=== PATIENT | female | born 1935 | race Caucasian/White ===

== ENCOUNTER 2016-12-26 10:04 | Day surgery (SDC) | payer MEDICARE ==
[2016-12-20 10:44] VITALS: BMI 29.7
[~2016-12-26 10:04] MED LIST: LACTATED RINGERS 1,000 ML IV SCH
[2016-12-26] MEDS ORDERED: LIDOCAINE 1% 20 ML VIAL (10MG/ML) FOR IV START INTRADERMA ONE (10:50)
[2016-12-26] MEDS: CYCLOPENTOLATE 1% OPHTH SOLN 2 ML BTL OP ONE ×3 (10:55→11:14)
[2016-12-26 10:59] VITALS: RESP 16; TEMP 97.5
[2016-12-26] MEDS: FLURBIPROFEN 0.03% OPHTH DROPS 2.5 ML BTL OP ONE ×3 (10:59→11:17)
[2016-12-26] MEDS: PHENYLEPHRINE 10% OPHTH DROPS 5 ML BTL OP ONE ×3 (11:01→11:20)
[2016-12-26] MEDS ORDERED: PROPOFOL 10 MG/ML 20 ML VIAL IV ONE (11:26)
[2016-12-26] MEDS ORDERED: EPINEPHrine (PF) 0.5 ML in BALANCED SALT IRRIG SOLN COMB2 500 ML IRRIGATION ONE (11:30)
[2016-12-26] MEDS ORDERED: BALANCED SALT IRRIG SOLN COMB2 15 ML IRRIG.SOLN IRRIGATION ONE (11:37)
[2016-12-26] MEDS ORDERED: HYALURONATE SODIUM INTRAOCULAR 1 EACH SYRINGE (10MG/ML) INTRAOCULA ONE (11:37)
--- NOTE | 2016-12-26 11:51 | P.OP ---
Date of Procedure: 12/26/16 Preoperative Diagnosis: Postoperative Diagnosis: Procedure(s) Performed: PREOPERATIVE DIAGNOSIS: Cataract, left eye. POSTOPERATIVE DIAGNOSIS: Cataract, left eye. OPERATION: Phacoemulsification cataract, left eye. DESCRIPTION OF PROCEDURE: The patient was taken to the preoperative holding area. Intravenous Propofol was given so as to bring about adequate sedation. The following mixture was given for local anesthesia: 5 mL of 2% lidocaine, 5 mL of 0.75% Marcaine, and 1 mL of Wydase. Approximately 4 mL was injected in the retrobulbar space of the surgical eye. Additional 1 mL was then directed to the temporal area of the surgical eye. This was performed to allow adequate neurological block of the facial muscles. The patient was revived and then taken into the operative room. The patient was prepped and draped in the usual sterile manner for the operative eye. A lid speculum was put into position. The conjunctiva was resected back from the limbus in the 12 o'clock position. Bleeding was controlled with electrocautery. A #69 blade was then used and a half-thickness scleral incision approximately 1-mm posterior to the limbus was made on bare sclera. This was shelved in the clear cornea using a crescent knife. Next a 15-degree blade was used to make a stab incision at the 3 o' clock position at the corneolimbal interface. Keratome blade was then used and the superior wound was extended into the anterior chamber. Viscoelastic was injected into the anterior chamber and to maintain its form. Next, a cystotome was used and a continuous anterior capsulotomy was made without difficulty. Hydrodissection using a blunt cannula and BSS was performed. Phaco probe was then employed and a groove extending from 12 to 6 o'clock in the lens was created. A Pablito wand was used through the stab incision so as to perform a divide and conquer technique. Next an irrigation aspiration probe was utilized and any residual cortex was removed from the eye. Again, viscoelastic was injected into the anterior chamber. An Efrain posterior chamber lens implant was placed in the cartridge and injected into the anterior chamber without difficulty. The Telovationsey hook was utilized to spin the lens into position and this was again performed without any difficulty. The irrigation and aspiration probe was again employed and any residual viscoelastic was removed from the eye. Then BSS was injected into the limbal stab incision and the anterior chamber re-inflated. The conjunctiva was reapproximated using electrocautery. One drop of 0.25% Timoptic was placed over the corneal along with TobraDex ophthalmic ointment. Two sterile patches and a Quiros eye shield were taped into position. The patient was transported to the recovery room in stable condition. Implants: Pathology: none sent Condition: stable Disposition: same day Indications for Procedure: Operative Findings: Description of Procedure:
[2016-12-26 12:11] VITALS: BP 156/83; PULSE 58
[2016-12-26] MEDS ORDERED: TIMOLOL 0.5% OPHTH SOLN (PF) 0.2 ML DROPERETTE OP ONE (23:00)
[2016-12-26] MEDS ORDERED: BUPIVACAINE (PF) 0.75% 5 ML, LIDOCAINE 4% (PF) 5 ML, HYALURONIDASE, HUMAN RECOMB 150 UNIT MISCELLANE ONE ×3 (23:00)
[2016-12-26] MEDS ORDERED: GENTAMICIN/PREDNISOL AC OPHTH OINT 3.5GM OPHTHALMIC ONE (23:00)
== END 2016-12-26 12:31 | disposition home or self-care (01) ==
LOC: OR 10:04
PROVIDERS: ATTEND Ophthalmology
DX: H26.9 Unspecified cataract (principal); H35.30 Unspecified macular degeneration; H04.129 Dry eye syndrome of unspecified lacrimal gland; I10 Essential (primary) hypertension; E07.9 Disorder of thyroid, unspecified; Z79.82 Long term (current) use of aspirin; Z79.899 Other long term (current) drug therapy; Z88.8 Allergy status to other drugs, medicaments and biological substances
CPT/HCPCS: 66984; V2632; J2001; J3470; J0171; J2704

== ENCOUNTER → 2017-05-03 | Outpatient (CLI) | payer MEDICARE ==
--- NOTE | 2017-05-03 15:50 | BD ---
EXAMINATION TYPE: MG DEXA axial skeleton. DATE OF EXAM: 05/03/2017 COMPARISON: NONE CLINICAL HISTORY: PT IS A 82 YR OLD FEMALE...[id number] CODE: Z78.0 ASYMPOMATIC MENOPAUSAL STATE Height: 65 Weight: 187 FRAX RISK QUESTIONS: Alcohol (3 or more units per day): NO Family History (Parent hip fracture): NO BROKEN HIP Glucocorticoids (More than 3mos): NO (Ex: prednisone, prednisolone, methylprednisolone, dexamethasone, and hydrocortisone). History of Fracture in Adulthood: YES Secondary Osteoporosis: NO 1. Type 1 Diabetes: NO 2. Hyperthyroidism: NO 3. Menopause before 45: NO 4. Malnutrition: NO 5. Chronic liver disease: NO Rheumatoid Arthritis: NO Current Tobacco Use: NO RISK FACTORS HISTORY OF: Hip Fracture (LEFT): YES When: ADULT RT FOR FRACTURE.... AN ADULT Surgery to LT HIP...THR): YES When: 14 YRS AGO Family History of Osteoporosis: YES, HER MOTHER, SISTER, BROKEN SHOULDER BUT NOT HIP Active: BEST SHE CAN Diet low in dairy products/other sources of calcium: NO Postmenopausal woman: HYST AT AGE 52 YRS OLD TOOK HORMONES ONLY SHORT WHILE AFTER SURG Hyperparathyroidism: YES Adrenal Insufficiency: NO MEDICATIONS: Thyroid Medications: NONE NOW, ONLY IN PAST Additional Medications: HEART MEDS, BP MEDS, ANTIANXIETY, REFLUX, VIT D Additional History: HEART TROUBLE, HYPERTENSION AND ANXIETY EXAM MEASUREMENTS: Bone mineral densitometry was performed using the [employer] System. Bone mineral density as measured about the Lumbar spine is: ----- L1-L4(G/cm2): 1.271 T Score Values are as follows: ----- L1: 1.1 ----- L2: 0.7 ----- L3: 0.4 ----- L4: 0.7 ----- L1-L4: 0.8 Bone mineral density THIS IS HER FIRST BONE DENSITY TEST WITH KAYLANEBONY BRYAN Bone mineral density about the R hip (g/cm2): 0.771 T Score values are as follows: -----R Neck: -0.9 -----R Total: -1.9 Bone mineral density FIRST BONE DENSITY AT [facility] FRAX%'S: THERE IS A 15.7% CHANCE OF A MAJOR OSTEOPOROTIC FX AND 2.9% OF HIP FX.....PROBABILITY OF FX IN 10 YRS TIME IMPRESSION: Osteopenia (T Score between -2.5 and -1) as noted by T score values with regards to the right hip. There is slightly increased risk of fracture and the patient may be considered for treatment. Re-Screen 2-5 years. NOTE: T-SCORE=SD OF THE YOUNG ADULT MEAN.
== END | disposition home or self-care (01) ==
LOC: RADBDWWP 13:02
PROVIDERS: ATTEND Family Medicine
DX: M85.851 Other specified disorders of bone density and structure, right thigh (principal); Z78.0 Asymptomatic menopausal state
CPT/HCPCS: 77080

== ENCOUNTER 2017-09-21 16:36 | Observation (INO) | payer MEDICARE ==
[2017-09-21] MEDS ORDERED: ACETAMINOPHEN TAB 500 MG TAB PO STA (16:58)
[2017-09-21] MEDS ORDERED: diphenhydrAMINE 50 MG/ML 1 ML VIAL IVP STA (16:58)
[2017-09-21] MEDS ORDERED: FAMOTIDINE 20 MG/2 ML VIAL IV STA (16:58)
[2017-09-21] MEDS ORDERED: METOCLOPRAMIDE 5 MG/ML 2 ML VIAL IVP STA (16:58)
[2017-09-21] MEDS ORDERED: SODIUM CHLORIDE 0.9% 1,000 ML IV ONE (16:58)
[2017-09-21 17:28] LABS: Basophils % (A) 0 %; Eosinophils # (A) 0.1 k/uL (0-0.7); Eosinophils % (A) 2 %; HCT 35.9 % (34.0-46.0); HGB 12.1 gm/dL (11.4-16.0); Lymphocytes # (A) 0.2 k/uL (1.0-4.8); Lymphocytes % (A) 4 %; MCH 31.1 pg (25.0-35.0); MCHC 33.6 g/dL (31.0-37.0); MCV 92.4 fL (80.0-100.0); Mean Platelet Volume 8.1; Monocytes # (A) 0.3 k/uL (0-1.0); Monocytes % (A) 4 %; Neutrophils # (A) 5.4 k/uL (1.3-7.7); Neutrophils % (A) 90 %; Platelet Count 213 k/uL (150-450); RBC 3.89 m/uL (3.80-5.40); RDW 12.9 % (11.5-15.5); WBC 6.1 k/uL (3.8-10.6)
[2017-09-21 17:40] LABS: Albumin 3.8 g/dL (3.5-5.0); Calcium 9.2 mg/dL (8.4-10.2); Potassium 4.4 mmol/L (3.5-5.1); Total Bilirubin 0.6 mg/dL (0.2-1.3); Total Protein 6.7 g/dL (6.3-8.2)
--- NOTE | 2017-09-21 18:12 | XR ---
EXAMINATION: XR chest 2V DATE AND TIME: 09/21/2017 5:54 PM ORDERING PROVIDER: Angel Gtz CLINICAL INDICATION: Cough TECHNIQUE: AP and lateral COMPARISON: None. DESCRIPTION: The lungs are clear. The pleural spaces are negative. The cardiac silhouette is not enlarged. The mediastinal and pleural silhouettes are unremarkable. The skeletal structures are intact without focal findings. The soft tissues are unremarkable. IMPRESSION: NO ACUTE PROCESS.
--- NOTE | 2017-09-21 18:16 | ED ---
Nausea/Vomiting/Diarrhea HPI - General Chief complaint: Nausea/Vomiting/Diarrhea Stated complaint: poss flu Time Seen by Provider: 09/21/17 16:41 Source: patient, EMS, RN notes reviewed Mode of arrival: EMS Limitations: no limitations - History of Present Illness Initial comments: 82-year-old female presents from a chief complaint of generalized not feeling well. Patient states that she has a few feel family members have been diagnosed with influenza. She states that she had a few episodes of diarrhea today slight nausea and acid reflux which is normal for her. She also complains of a headache but she states that she's had headaches consistently since she hit her head and several months ago. Patient denies any focal weakness denies any blurred vision or any confusion. Patient states that she just was not feeling any better throughout the day so she thought she should come and be checked out. She denies any dysuria or hematuria. Patient had no reported fever denies any chills or night sweats. - Related Data Home Medications Medication Instructions Recorded Confirmed Aspirin [Adult Low Dose Aspirin EC] 162 mg PO DAILY 12/20/16 09/21/17 Cholecalciferol (Vitamin D3) 2,000 unit PO DAILY 12/20/16 09/21/17 [Vitamin D3] Citalopram Hydrobromide [CeleXA] 40 mg PO DAILY 12/20/16 09/21/17 Cyanocobalamin (Vitamin B-12) 1,000 mcg PO DAILY 12/20/16 09/21/17 [Vitamin B-12] Fish Oil/Dha/Epa [Fish Oil 1,200 1 cap PO DAILY 12/20/16 09/21/17 mg Fish Oil] Iron 32.1 Mg 1 tab PO SUTUTHSA 12/20/16 09/21/17 Losartan Potassium 100 mg PO DAILY 12/20/16 09/21/17 Multivitamins, Thera [Multivitamin 3 tab PO HS 12/20/16 09/21/17 (formulary)] Vitamin E (Unknown Dose) 1 tab PO DAILY 12/20/16 09/21/17 amLODIPine BESYLATE [Norvasc] 5 mg PO HS 12/20/16 09/21/17 Cranberry Fruit Extract [Cranberry] 500 mg PO DAILY 09/21/17 09/21/17 Lutein/Zeaxanthin 25/25mg 1 tab PO DAILY 09/21/17 09/21/17 Methimazole [Tapazole] 5 mg PO DAILY 09/21/17 09/21/17 Allergies Allergy/AdvReac Type Severity Reaction Status Date / Time shellfish derived [Shellfish] Allergy Severe Nausea & Verified 09/21/17 18:04 Vomiting, Very Ill. rofecoxib [From Vioxx] Allergy Unknown Hypertensio Verified 09/21/17 18:04 n sertraline [From Zoloft] Allergy Unknown Rash/Hives Verified 09/21/17 18:04 celecoxib [From Celebrex] AdvReac Unknown Loss of Verified 09/21/17 18:04 Balance Review of Systems ROS Statement: Those systems with pertinent positive or pertinent negative responses have been documented in the HPI. ROS Other: All systems not noted in ROS Statement are negative. Past Medical History Past Medical History: Hypertension, Osteoarthritis (OA), Thyroid Disorder Additional Past Medical History / Comment(s): States irregular heart beat, Varicose Veins, Hx of 3 doses of radioactive iodine for Thyroid tx., HX of a fall December 04. History of Any Multi-Drug Resistant Organisms: None Reported Past Surgical History: Cholecystectomy, Hysterectomy, Joint Replacement, Orthopedic Surgery, Tonsillectomy Additional Past Surgical History / Comment(s): PARTIAL LEFT HIP AND THEN TOTAL LEFT HIP., RIGHT CATARACT ([facility] cataract BL Past Anesthesia/Blood Transfusion Reactions: No Reported Reaction Past Psychological History: Anxiety Smoking Status: Never smoker Past Alcohol Use History: None Reported Past Drug Use History: None Reported - Past Family History Sister(s) Family Medical History: Cancer General Exam Limitations: no limitations General appearance: alert, in no apparent distress Head exam: Present: atraumatic, normocephalic, normal inspection Eye exam: Present: normal appearance, PERRL, EOMI. Absent: scleral icterus, conjunctival injection, periorbital swelling ENT exam: Present: normal exam, normal oropharynx, mucous membranes moist, TM's normal bilaterally, normal external ear exam Neck exam: Present: normal inspection, full ROM. Absent: tenderness, meningismus, lymphadenopathy Respiratory exam: Present: normal lung sounds bilaterally. Absent: respiratory distress, wheezes, rales, rhonchi, stridor Cardiovascular Exam: Present: regular rate, normal rhythm, normal heart sounds. Absent: systolic murmur, diastolic murmur, rubs, gallop, clicks GI/Abdominal exam: Present: soft, normal bowel sounds. Absent: distended, tenderness, guarding, rebound, rigid Extremities exam: Present: normal inspection, full ROM, normal capillary refill. Absent: tenderness, pedal edema, joint swelling, calf tenderness Neurological exam: Present: alert, oriented X3, CN II-XII intact, reflexes normal. Absent: motor sensory deficit Skin exam: Present: warm, dry, intact, normal color. Absent: rash Course Vital Signs 09/21/17 09/21/17 09/21/17 16:45 18:17 19:09 Temperature 97.0 F L 97.9 F Pulse Rate 81 62 Respiratory 17 17 Rate Blood Pressure 167/78 163/69 O2 Sat by Pulse 100 100 Oximetry Medical Decision Making - Lab Data Result diagrams: 09/21/17 17:20 09/21/17 17:20 Lab Results 09/21/17 09/21/17 09/21/17 Range/Units 16:38 17:20 17:20 WBC 6.1 (3.8-10.6) k/uL RBC 3.89 (3.80-5.40) m/uL Hgb 12.1 (11.4-16.0) gm/dL Hct 35.9 (34.0-46.0) % MCV 92.4 (80.0-100.0) fL MCH 31.1 (25.0-35.0) pg MCHC 33.6 (31.0-37.0) g/dL RDW 12.9 (11.5-15.5) % Plt Count 213 (150-450) k/uL Neutrophils % 90 % Lymphocytes % 4 % Monocytes % 4 % Eosinophils % 2 % Basophils % 0 % Neutrophils # 5.4 (1.3-7.7) k/uL Lymphocytes # 0.2 L (1.0-4.8) k/uL Monocytes # 0.3 (0-1.0) k/uL Eosinophils # 0.1 (0-0.7) k/uL Basophils # 0.0 (0-0.2) k/uL Sodium 139 (137-145) mmol/L Potassium 4.4 (3.5-5.1) mmol/L Chloride 102 (98-107) mmol/L Carbon Dioxide 27 (22-30) mmol/L Anion Gap 10 mmol/L BUN 24 H (7-17) mg/dL Creatinine 0.90 (0.52-1.04) mg/dL Est GFR (CKD-EPI)AfAm 69 (>60 ml/min/1.73 sqM) Est GFR (CKD-EPI)NonAf 60 (>60 ml/min/1.73 sqM) Glucose 140 H (74-99) mg/dL Calcium 9.2 (8.4-10.2) mg/dL Magnesium 2.0 (1.6-2.3) mg/dL Total Bilirubin 0.6 (0.2-1.3) mg/dL AST 29 (14-36) U/L ALT 25 (9-52) U/L Alkaline Phosphatase 68 (38-126) U/L Troponin I (0.000-0.034) ng/mL Total Protein 6.7 (6.3-8.2) g/dL Albumin 3.8 (3.5-5.0) g/dL Lipase 391 H (23-300) U/L Urine Color Urine Appearance (Clear) Urine pH (5.0-8.0) Ur Specific [place] (1.001-1.035) Urine Protein (Negative) Urine Glucose (UA) (Negative) Urine Ketones (Negative) Urine Blood (Negative) Urine Nitrite (Negative) Urine Bilirubin (Negative) Urine Urobilinogen (<2.0) mg/dL Ur Leukocyte Esterase (Negative) Urine RBC (0-5) /hpf Urine WBC (0-5) /hpf Urine WBC Clumps (None) /hpf Urine Bacteria (None) /hpf Hyaline Casts (0-2) /lpf Urine Mucus (None) /hpf Influenza Type A RNA Not Detected (Not Detectd) Influenza Type B (PCR) Not Detected (Not Detectd) 09/21/17 09/21/17 Range/Units 17:20 17:35 WBC (3.8-10.6) k/uL RBC (3.80-5.40) m/uL Hgb (11.4-16.0) gm/dL Hct (34.0-46.0) % MCV (80.0-100.0) fL MCH (25.0-35.0) pg MCHC (31.0-37.0) g/dL RDW (11.5-15.5) % Plt Count (150-450) k/uL Neutrophils % % Lymphocytes % % Monocytes % % Eosinophils % % Basophils % % Neutrophils # (1.3-7.7) k/uL Lymphocytes # (1.0-4.8) k/uL Monocytes # (0-1.0) k/uL Eosinophils # (0-0.7) k/uL Basophils # (0-0.2) k/uL Sodium (137-145) mmol/L Potassium (3.5-5.1) mmol/L Chloride (98-107) mmol/L Carbon Dioxide (22-30) mmol/L Anion Gap mmol/L BUN (7-17) mg/dL Creatinine (0.52-1.04) mg/dL Est GFR (CKD-EPI)AfAm (>60 ml/min/1.73 sqM) Est GFR (CKD-EPI)NonAf (>60 ml/min/1.73 sqM) Glucose (74-99) mg/dL Calcium (8.4-10.2) mg/dL Magnesium (1.6-2.3) mg/dL Total Bilirubin (0.2-1.3) mg/dL AST (14-36) U/L ALT (9-52) U/L Alkaline Phosphatase (38-126) U/L Troponin I 0.023 (0.000-0.034) ng/mL Total Protein (6.3-8.2) g/dL Albumin (3.5-5.0) g/dL Lipase (23-300) U/L Urine Color Yellow Urine Appearance Turbid H (Clear) Urine pH 6.5 (5.0-8.0) Ur Specific [place] 1.016 (1.001-1.035) Urine Protein 1+ H (Negative) Urine Glucose (UA) Negative (Negative) Urine Ketones Negative (Negative) Urine Blood Small H (Negative) Urine Nitrite Positive H (Negative) Urine Bilirubin Negative (Negative) Urine Urobilinogen <2.0 (<2.0) mg/dL Ur Leukocyte Esterase Large H (Negative) Urine RBC 55 H (0-5) /hpf Urine WBC >182 H (0-5) /hpf Urine WBC Clumps Many H (None) /hpf Urine Bacteria Many H (None) /hpf Hyaline Casts 35 H (0-2) /lpf Urine Mucus Few H (None) /hpf Influenza Type A RNA (Not Detectd) Influenza Type B (PCR) (Not Detectd) - EKG Data EKG Comments: EKG performed at 17:27 there is normal sinus rhythm with left axis deviation, rate of 69 [place] 186 QRS 120 QT/QTC 444/75 Disposition Clinical Impression: UTI (urinary tract infection), Nausea, Weakness, Flank pain, Headache Disposition: ADMITTED IP TO THIS HOSP Condition: Stable Referrals: Cuate Casarez MD [Primary Care Provider] - 1-2 days
--- NOTE | 2017-09-21 18:22 | CT ---
EXAMINATION: CT brain wo con DATE AND TIME: 09/21/2017 5:52 PM ORDERING PROVIDER: Angel Gtz CLINICAL INDICATION: Headache with weakness TECHNIQUE: Standard departmental protocol. COMPARISON: 01/06/2012 DESCRIPTION: The calvarium is intact. There is no intracranial hemorrhage. There is no mass or mass e ffect. There is no definite new attenuation defect. Remainder of the intra-axial and extra-axial comp artment examination is unremarkable. The paranasal sinuses, middle ear cavities, and mastoid sinus ai r cells are clear. The orbits are intact. IMPRESSION: NO ACUTE PROCESS.
[2017-09-21 19:12] LABS: Appearance,Urine Turbid (Clear); Bacteria,Urine Many /hpf; Bilirubin,Urine Negative (Negative); Blood,Urine Small (Negative); Color,Urine Yellow; Glucose,Urine (UA) Negative (Negative); Hyaline Casts,Urine 35 /lpf (0-2); Ketones,Urine Negative (Negative); Leukocyte Esterase,Urine Large (Negative); Mucus,Urine Few /hpf; Nitrite,Urine Positive (Negative); PH, Urine 6.5 (5.0-8.0); Protein,Urine 1+ (Negative); RBC,Urine 55 /hpf (0-5); Specific Gravity,Urine 1.016 (1.001-1.035); Urobilinogen,Urine <2.0 mg/dL (<2.0); WBC,Urine >182 /hpf (0-5)
[2017-09-21] MEDS ORDERED: cefTRIAXone IN SWFI 1,000 MG/10 ML SYRINGE IVP STA (19:33)
[2017-09-21] MEDS ORDERED: ACETAMINOPHEN TAB 325 MG TAB PO PRN (19:36)
[2017-09-21] MEDS ORDERED: ONDANSETRON 4 MG/2 ML VIAL IVP PRN (19:36)
[2017-09-21] MEDS ORDERED: HYDROcodone/APAP 5-325MG 1 EACH TAB PO PRN (19:36)
[2017-09-21] MEDS: SODIUM CHLORIDE 0.9% 1,000 ML IV SCH (20:14)
[2017-09-21] MEDS ORDERED: ONDANSETRON 4 MG/2 ML VIAL IVP STA (21:51)
[2017-09-21] MEDS ORDERED: CALCIUM CARBONATE 500 MG CHEWABLE PO STA (21:53)
[2017-09-21 22:40] VITALS: RESP 16
[2017-09-22] MEDS: SODIUM CHLORIDE 0.9% 1,000 ML IV SCH (08:12)
[2017-09-22 08:52] VITALS: TEMP 98.5
[2017-09-22] MEDS ORDERED: ASPIRIN 81 MG PO SCH (11:00)
[2017-09-22] MEDS ORDERED: METHIMAZOLE 5 MG TAB PO SCH (11:00)
[2017-09-22] MEDS ORDERED: CITALOPRAM HYDROBROMIDE 20 MG TAB PO SCH (11:00)
[2017-09-22] MEDS ORDERED: LOSARTAN 50 MG TAB PO SCH (11:00)
[2017-09-22] MEDS ORDERED: CYANOCOBALAMIN 500 MCG TAB PO SCH (12:00)
[2017-09-22 12:54] VITALS: BMI 29.8
[2017-09-22 14:16] VITALS: BP 122/61; PULSE 69
[2017-09-22] MEDS ORDERED: cefTRIAXone IN SWFI 1,000 MG/10 ML SYRINGE IVP STA (16:38)
[2017-09-22] MEDS ORDERED: PANTOPRAZOLE 40 MG TABLET PO STA (16:53)
--- NOTE | 2017-09-22 18:09 | HP ---
HISTORY AND PHYSICAL HISTORY AND PHYSICAL AND DISCHARGE SUMMARY: DATE OF ADMISSION: 09/21/2017 PRESENT COMPLAINT: Weak, tired, run down. HISTORY OF PRESENTING COMPLAINT: A pleasant 82-year-old patient of Dr. Casarez. Chronic stable medical conditions include GERD, hypertension, osteoarthritis, hypothyroid, varicose veins. The patient presented with a multitude of symptoms, including a lot of belching, severe heartburn. Patient has had heartburn for quite a while, getting worse, especially after eating acidic stuff like soups, etc. Has not really been taking much medications except for [id number] stuff and reflux symptoms. Tired, run down, also having some urinary frequency and urgency, found to have a pretty significant UTI in the ER, was given IV ceftriaxone for the same. Patient is quite bothered by her reflux symptoms coming over a period of time. Also has had epigastric discomfort. REVIEW OF SYSTEMS: CONSTITUTIONAL: Tired. HEENT: None. RESPIRATORY: None. CARDIOVASCULAR: None. GASTROINTESTINAL: As above. GENITOURINARY: As above. MUSCULOSKELETAL: Arthritic pain in joints. DERMATOLOGICAL: None. HEMATOLOGIC: None. LYMPHATIC: None. PSYCHIATRY: None. NEUROLOGICAL: None. PAST HISTORY: GERD, hypertension, osteoarthritis, hypothyroid, varicose veins, pancreatitis, gout, hiatal hernia, uterine cancer more than 25 years ago. PAST SURGICAL HISTORY: Cholecystectomy, hysterectomy, joint replacement, tonsillectomy, partial left hip and then total left hip, right cataract surgery. SOCIAL HISTORY: The patient is , does not smoke or drink alcohol. FAMILY HISTORY: Graves' disease, cancer. HOME MEDICATIONS: 1. Norvasc 5 mg q.h.s. 2. Vitamin E 1 tablet p.o. daily. 3. Multivitamin 3 tablets p.o. q.h.s. 4. Tapazole 5 mg p.o. daily. 5. Losartan. 6. Potassium 100 mg p.o. daily. 7. Lutein/zeaxanthin 25/25 1 tablet p.o. daily. 8. Iron 1 tablet p.o. Sunday, Sunday, , Sunday. 9. Fish oil. 10.Vitamin B12 1000 mcg a day. 11.Cranberry 500 mg p.o. daily. 12.Celexa 40 mg p.o. daily. 13.Vitamin D3 2000 units p.o. daily. 14.Aspirin 162 mg p.o. daily. ALLERGIES: SHELLFISH, VIOXX, ZOLOFT, CELEBREX. EXAMINATION: VITAL SIGNS: On presentation, temperature 97, pulse 81, respirations 17, blood pressure 167/78, pulse ox 100% on room air. GENERAL APPEARANCE: Sitting up, comfortable. EYES: Pupils equal. Conjunctivae normal. HEENT: External nose and ears normal. Oral cavity normal. NECK: JVD not raised. Mass not palpable. RESPIRATORY: Effort normal. Lungs are clear. CARDIOVASCULAR: First and second sounds normal. No edema. ABDOMEN: Soft, nontender. Liver, spleen not palpable. LYMPHATIC: No lymph node palpable in neck or axillae. PSYCHIATRY: Alert and oriented x3. Mood and affect normal. NEUROLOGICAL: Pupils equal. Cranial nerve grossly intact. Power and sensation grossly intact. MUSCULOSKELETAL: Evidence of osteoarthritis, especially in the hands and knees. INVESTIGATIONS: White count 6.1, hemoglobin 12.1. Potassium 4.4, BUN 24, creatinine 0.90. UA positive for leuko esterase, WBC, bacteria. ASSESSMENT: 1. Acute urinary tract infection causing systemic symptoms. Patient is given IV antibiotic in the ER. 2. Severe gastroesophageal reflux disease symptoms, progressively getting worse. Probably will need an esophagogastroduodenoscopy due to epigastric discomfort. 3. Essential hypertension. 4. Primary osteoarthritis in multiple joints. 5. Hyperthyroidism. 6. Primary osteoarthritis in multiple joints. 7. Depression, not otherwise specified. PLAN: Care was discussed with the patient. Questions were answered. She is feeling much better. Did tell her that she needs to be on PPIs and she needs an outpatient EGD. The patient will get another dose of IV ceftriaxone and then she can go home today. Otherwise, she is feeling much better. Home medications will be continued. Additionally, the patient will get Ceftin 250 mg p.o. twice a day for 3 more days. The patient did get IV fluids. Follow up with Dr. Demetrius Alvarez in 1 week. Follow up with Dr. Casarez in 3 days. MMODL / IJN: [id number] /
[2017-09-22] MEDS ORDERED: amLODIPine 5 MG TAB PO SCH (21:00)
== END 2017-09-22 18:28 | disposition home or self-care (01) ==
LOC: EC 16:36 → 5MS5E 20:19
PROVIDERS: ADMIT Hospitalist; ATTEND Hospitalist
DX: N39.0 Urinary tract infection, site not specified (principal); K21.9 Gastro-esophageal reflux disease without esophagitis; I10 Essential (primary) hypertension; E05.90 Thyrotoxicosis, unspecified without thyrotoxic crisis or storm; R51 Headache; M10.9 Gout, unspecified; I83.90 Asymptomatic varicose veins of unspecified lower extremity; M19.042 Primary osteoarthritis, left hand; M19.041 Primary osteoarthritis, right hand; M17.0 Bilateral primary osteoarthritis of knee; F32.9 Major depressive disorder, single episode, unspecified; Z79.82 Long term (current) use of aspirin; Z79.899 Other long term (current) drug therapy; Z96.643 Presence of artificial hip joint, bilateral; Z90.710 Acquired absence of both cervix and uterus; Z87.19 Personal history of other diseases of the digestive system; Z83.49 Family history of other endocrine, nutritional and metabolic diseases; Z80.9 Family history of malignant neoplasm, unspecified; Z88.8 Allergy status to other drugs, medicaments and biological substances; Z88.6 Allergy status to analgesic agent; Z91.013 Allergy to seafood
CPT/HCPCS: 96375 ×5; 96361 ×4; 96374 ×2; 99285 ×2; 96376; 36415; 93005; 80053; 83690; 83735; 84484; 85025; 81001; 87502; 71046; 70450; G0378 ×2; J1200; J2765; J2405; J0696 ×2

== ENCOUNTER → 2018-12-10 | Outpatient (CLI) | payer MEDICARE ==
--- NOTE | 2018-12-10 20:56 | CONS ---
CONSULTATION REASON FOR THE CONSULT: Insomnia and nightmares. Emerald is 83 and she was in a good state of health until around 4-5 months ago when she started having sleep fragmentation, difficulty initiating and maintaining sleep and excessive number of nightmares occurring mainly in the second half of the night. She is going to bed around 11 p.m., and she gets out of bed at 9:00 am in the morning. Total number of hours of sleep varies and this has been gradually getting worse over the past 4-5 months. During the day, she feels tired and sleepy. No snoring. No witnessed apneas. No waking up choking or gasping for air. She has symptoms of increased restlessness in the lower extremities and she improves by massaging and applying heat pads and stretching her legs. Note that around 4-5 months ago and along with the onset of her symptoms, the patient was started on Aricept for short-term memory loss. The patient was also diagnosed having atrial fibrillation. She was started on a combination of metoprolol and Eliquis. Her atrial fibrillation is under good control for now. Never the less, she developed insomnia and she is having increased nightmares. No substance abuse. No alcoholism. No head trauma. No falls. No GI bleeding. No reported depression. She has anxiety. Yet she is not taking any treatment for now. Scotia score is only at 6. PAST MEDICAL HISTORY: Atrial fibrillation. Hypertension, chronic anxiety/depression. Sciatica, RLS. PAST SURGICAL HISTORY: Includes replacement, hysterectomy. DRUG ALLERGIES: TO IODINE AND MACRODANTIN. OUTPATIENT MEDICATIONS: Include Aricept, Eliquis, metoprolol and Cozaar. SOCIAL HISTORY: Nonsmoker. No history of alcohol. No history of IV drugs. FAMILY HISTORY: Negative for sleep apnea or for any other form of sleep disorder. REVIEW OF SYSTEMS: Fourteen-point review of system was done. Positive findings are mentioned above in history of present illness. Of significance is the hip pain for which the patient has undergone hip replacement for bilateral osteoarthritis. The patient is having nightmares with scary dreams which wake her up constantly from sleep. She has no episodes of sleep paralysis. No hallucinations. No cognitive impairment. She is still able to function well and she is able to write down her bills herself. She is only forgetful with short-term acquired memory. Long-term memory is quite intact at this point. No falls. No chest pain. No heartburn. No palpitations. PHYSICAL EXAMINATION: Her current vital signs, her blood pressure is 134/75. Pulse 61, respirations 16, temp 97.6. Saturation 95% on room air. Height is 5 feet, 5 inches, weight is 189 and Scotia score is at 6. Neck size is 15-1/4 of an inch. BMI 31.4. GENERAL APPEARANCE: Calm comfortable. Head is atraumatic, normocephalic. NECK: Supple. Short crowding of posterior pharynx not present. No goiter or neck masses. Mallampati class 2-3. LUNGS: Clear to auscultation. HEART: Sounds are irregular. Positive S1, S2. No S3, S4. No murmurs. ABDOMEN: Soft, nontender. No organomegaly. EXTREMITIES: No edema. No cyanosis or clubbing. Neurologic: Alert and oriented times three with no focal neurological deficits. PSYCH is negative for any active symptoms of depression. There may be a component of anxiety. SKIN: Negative for any wounds or ulcerations. IMPRESSION: 1. New onset insomnia along with nightmares. As such, the patient is having sleep fragmentation and excessive fatigue and tiredness and sleepiness during the day. 2. Hypertension. 3. Chronic atrial fibrillation. 4. History of anxiety/depression. 5. Sciatica. 6. Restless leg syndrome. PLAN: This patient has several factors affecting her sleep quality. I find a very well established temporal relationship between various drugs that were initiated on this patient and her sleep symptoms. For instance, the patient was started on Aricept and this agent is known to cause symptoms related to insomnia. At the same time, the patient was started on metoprolol known to cause nightmares. Furthermore, the patient has symptoms of restless legs syndrome. I educated this patient on maintaining good sleep hygiene measures. We will introduce some sleep restriction. We will ask her to get out of bed around 6 a.m. in the morning and spend only 7 hours in bed if possible. I suggested stopping the Aricept for now which will help with symptoms of insomnia. I also asked her to contact Dr. Adams Jansen, her lead programmer and ask him to have her metoprolol switch to calcium general ashok which has less side effects such as nightmares. She will continue doing stretching exercises and warm compresses and hot baths and massage therapy to her legs, to improve restless legs syndrome. I do not see the need for adding a dopaminergic agent at this point in time. She will do all this intervention and I anticipate improvement in her sleep quality. If not, she will contact [facility] for a regular followup. RON / STEW: [id number] /
== END ==
LOC: SLEEP 14:09
PROVIDERS: ATTEND Internal Medicine Critical Care Medicine
DX: G47.00 Insomnia, unspecified (principal); I10 Essential (primary) hypertension; I48.2 Chronic atrial fibrillation; F41.8 Other specified anxiety disorders; M54.30 Sciatica, unspecified side; G25.81 Restless legs syndrome; Z91.048 Other nonmedicinal substance allergy status; Z88.8 Allergy status to other drugs, medicaments and biological substances; Z79.01 Long term (current) use of anticoagulants; Z79.899 Other long term (current) drug therapy
CPT/HCPCS: 99211

== ENCOUNTER 2019-01-03 08:50 | Observation (INO) | payer MEDICARE ==
[2019-01-03] MEDS ORDERED: SODIUM CHLORIDE 0.9% 1,000 ML IV STA (09:09)
--- NOTE | 2019-01-03 09:13 | ED ---
General Adult HPI - General Chief complaint: Weakness Stated complaint: Weakness Time Seen by Provider: 01/03/19 08:55 Source: patient, EMS, RN notes reviewed Mode of arrival: EMS Limitations: no limitations - History of Present Illness Initial comments: Patient is a pleasant 83-year-old female presenting to the emergency Department with complaints of generalized weakness. Patient was seen in the emergency department several weeks ago with diarrhea however this has now resolved. Patient has been drinking okay. Patient was diagnosed with urinary tract infection several days following this. Patient completed antibiotics and followed up with her doctor. Patient did have concern still for urinary tract infection and a second antibiotic was prescribed just yesterday. Patient feels somewhat weak all over. No confusion. No fevers. No isolated area of weakness. No abdominal pain. - Related Data Home Medications Medication Instructions Recorded Confirmed Citalopram Hydrobromide [CeleXA] 40 mg PO DAILY 12/20/16 01/03/19 amLODIPine BESYLATE [Norvasc] 5 mg PO HS 12/20/16 01/03/19 Apixaban [Eliquis] 5 mg PO BID 01/03/19 01/03/19 Loratadine [Claritin] 10 mg PO DAILY 01/03/19 01/03/19 Losartan/Hydrochlorothiazide 1 tab PO DAILY 01/03/19 01/03/19 [Losartan-Hctz 100-12.5 mg Tab] Nitrofurantoin Monohyd/M-Cryst 100 mg PO Q12HR 01/03/19 01/03/19 [Macrobid] Vit C/E/Zn/Coppr/Lutein/Zeaxan 1 cap PO HS 01/03/19 01/03/19 [Preservision Areds 2 Softgel] Allergies Allergy/AdvReac Type Severity Reaction Status Date / Time rofecoxib [From Vioxx] Allergy Unknown Hypertensio Verified 01/03/19 09:08 n sertraline [From Zoloft] Allergy Unknown Rash/Hives Verified 01/03/19 09:08 shellfish derived [Shellfish] AdvReac Severe Nausea & Verified 01/03/19 09:08 Vomiting, Very Ill. celecoxib [From Celebrex] AdvReac Unknown Loss of Verified 01/03/19 09:08 Balance Review of Systems ROS Statement: Those systems with pertinent positive or pertinent negative responses have been documented in the HPI. ROS Other: All systems not noted in ROS Statement are negative. Constitutional: Denies: fever Eyes: Denies: eye pain ENT: Denies: ear pain Respiratory: Denies: cough Cardiovascular: Denies: chest pain Endocrine: Reports: fatigue Gastrointestinal: Denies: abdominal pain, nausea, vomiting Genitourinary: Denies: dysuria, hematuria Musculoskeletal: Denies: back pain Skin: Denies: rash Neurological: Denies: confusion Past Medical History Past Medical History: Atrial Fibrillation, Cancer, GERD/Reflux, Hypertension, Osteoarthritis (OA), Thyroid Disorder Additional Past Medical History / Comment(s): States irregular heart beat, Varicose Veins, Hx of 3 doses of radioactive iodine for Thyroid tx"for over active thyroid"., HX of a fall ,"headaches", pancreatitis, sinus infections, past gout, cataracts(sx done), hiatal hernia, uterine cancer >25 years ago(sx only), uti History of Any Multi-Drug Resistant Organisms: None Reported Past Surgical History: Cholecystectomy, Hysterectomy, Joint Replacement, Orthopedic Surgery, Tonsillectomy Additional Past Surgical History / Comment(s): PARTIAL LEFT HIP AND THEN TOTAL LEFT HIP., RIGHT CATARACT ([facility]). cataract BL Past Anesthesia/Blood Transfusion Reactions: No Reported Reaction Past Psychological History: Anxiety Smoking Status: Never smoker Past Alcohol Use History: None Reported Past Drug Use History: None Reported - Past Family History Sister(s) Family Medical History: Cancer Mother Additional Family Medical History / Comment(s): graves disease. comiited suicide in 1941 Father Family Medical History: Myocardial Infarction ([place]) General Exam Limitations: no limitations General appearance: alert, in no apparent distress Head exam: Present: atraumatic Eye exam: Present: normal appearance, PERRL ENT exam: Present: normal oropharynx Neck exam: Present: normal inspection Respiratory exam: Present: normal lung sounds bilaterally Cardiovascular Exam: Present: regular rate, irregular rhythm GI/Abdominal exam: Present: soft. Absent: tenderness Extremities exam: Present: normal inspection. Absent: pedal edema Neurological exam: Present: alert, oriented X3, CN II-XII intact. Absent: motor sensory deficit Expanded Neurological exam: Present: protecting the airway Speech: Present: fluid speech Motor strength exam: RUE: 5, LUE: 5, RLE: 5, LLE: 5 Psychiatric exam: Present: normal affect, normal mood Skin exam: Present: normal color Course Vital Signs 01/03/19 08:51 Temperature 98.3 F Pulse Rate 96 Respiratory 18 Rate Blood Pressure 145/83 O2 Sat by Pulse 99 Oximetry EKG Findings - EKG Comments: EKG Findings:: A. fib with a rate of 93. PVC is present. QRS 126. QT 404. QTC 502. Left axis. Septal Q waves. Nonspecific T-wave. Medical Decision Making - Medical Decision Making Patient was reevaluated and updated. Case was discussed in detail with Dr. Guy, covering for Dr. Casarez, who will admit. - Lab Data Result diagrams: 01/03/19 09:01 01/03/19 09:01 Lab Results 01/03/19 01/03/19 01/03/19 Range/Units 09:01 09:01 09:01 WBC 9.9 (3.8-10.6) k/uL RBC 3.68 L (3.80-5.40) m/uL Hgb 11.4 (11.4-16.0) gm/dL Hct 35.5 (34.0-46.0) % MCV 96.5 (80.0-100.0) fL MCH 31.1 (25.0-35.0) pg MCHC 32.2 (31.0-37.0) g/dL RDW 12.8 (11.5-15.5) % Plt Count 265 (150-450) k/uL Neutrophils % 94 % Lymphocytes % 3 % Monocytes % 1 % Eosinophils % 2 % Basophils % 0 % Neutrophils # 9.3 H (1.3-7.7) k/uL Lymphocytes # 0.3 L (1.0-4.8) k/uL Monocytes # 0.1 (0-1.0) k/uL Eosinophils # 0.2 (0-0.7) k/uL Basophils # 0.0 (0-0.2) k/uL PT (9.0-12.0) sec INR (<1.2) APTT (22.0-30.0) sec Sodium 136 L (137-145) mmol/L Potassium 4.2 (3.5-5.1) mmol/L Chloride 102 (98-107) mmol/L Carbon Dioxide 23 (22-30) mmol/L Anion Gap 11 mmol/L BUN 45 H (7-17) mg/dL Creatinine 1.43 H (0.52-1.04) mg/dL Est GFR (CKD-EPI)AfAm 39 (>60 ml/min/1.73 sqM) Est GFR (CKD-EPI)NonAf 34 (>60 ml/min/1.73 sqM) Glucose 125 H (74-99) mg/dL Plasma Lactic Acid Arley 1.6 (0.7-2.0) mmol/L Calcium 9.4 (8.4-10.2) mg/dL Magnesium 2.1 (1.6-2.3) mg/dL Total Bilirubin 0.9 (0.2-1.3) mg/dL AST 30 (14-36) U/L ALT 47 (9-52) U/L Alkaline Phosphatase 95 (38-126) U/L Troponin I (0.000-0.034) ng/mL Total Protein 6.8 (6.3-8.2) g/dL Albumin 4.0 (3.5-5.0) g/dL Urine Color Urine Appearance (Clear) Urine pH (5.0-8.0) Ur Specific Drain (1.001-1.035) Urine Protein (Negative) Urine Glucose (UA) (Negative) Urine Ketones (Negative) Urine Blood (Negative) Urine Nitrite (Negative) Urine Bilirubin (Negative) Urine Urobilinogen (<2.0) mg/dL Ur Leukocyte Esterase (Negative) Urine RBC (0-5) /hpf Urine WBC (0-5) /hpf Urine WBC Clumps (None) /hpf Urine Bacteria (None) /hpf 01/03/19 01/03/19 01/03/19 Range/Units 09:01 09:01 11:45 WBC (3.8-10.6) k/uL RBC (3.80-5.40) m/uL Hgb (11.4-16.0) gm/dL Hct (34.0-46.0) % MCV (80.0-100.0) fL MCH (25.0-35.0) pg MCHC (31.0-37.0) g/dL RDW (11.5-15.5) % Plt Count (150-450) k/uL Neutrophils % % Lymphocytes % % Monocytes % % Eosinophils % % Basophils % % Neutrophils # (1.3-7.7) k/uL Lymphocytes # (1.0-4.8) k/uL Monocytes # (0-1.0) k/uL Eosinophils # (0-0.7) k/uL Basophils # (0-0.2) k/uL PT 10.6 (9.0-12.0) sec INR 1.0 (<1.2) APTT 24.8 (22.0-30.0) sec Sodium (137-145) mmol/L Potassium (3.5-5.1) mmol/L Chloride (98-107) mmol/L Carbon Dioxide (22-30) mmol/L Anion Gap mmol/L BUN (7-17) mg/dL Creatinine (0.52-1.04) mg/dL Est GFR (CKD-EPI)AfAm (>60 ml/min/1.73 sqM) Est GFR (CKD-EPI)NonAf (>60 ml/min/1.73 sqM) Glucose (74-99) mg/dL Plasma Lactic Acid Arley (0.7-2.0) mmol/L Calcium (8.4-10.2) mg/dL Magnesium (1.6-2.3) mg/dL Total Bilirubin (0.2-1.3) mg/dL AST (14-36) U/L ALT (9-52) U/L Alkaline Phosphatase (38-126) U/L Troponin I 0.014 (0.000-0.034) ng/mL Total Protein (6.3-8.2) g/dL Albumin (3.5-5.0) g/dL Urine Color Yellow Urine Appearance Clear (Clear) Urine pH 6.5 (5.0-8.0) Ur Specific Drain 1.007 (1.001-1.035) Urine Protein 1+ H (Negative) Urine Glucose (UA) Negative (Negative) Urine Ketones Negative (Negative) Urine Blood Negative (Negative) Urine Nitrite Negative (Negative) Urine Bilirubin Negative (Negative) Urine Urobilinogen <2.0 (<2.0) mg/dL Ur Leukocyte Esterase Small H (Negative) Urine RBC 1 (0-5) /hpf Urine WBC 18 H (0-5) /hpf Urine WBC Clumps Rare H (None) /hpf Urine Bacteria Rare H (None) /hpf Disposition Clinical Impression: Renal insufficiency, UTI (urinary tract infection) Disposition: ADMITTED IP TO THIS HOSP Is patient prescribed a controlled substance at d/c from ED?: No Referrals: Cuate Casarez MD [Primary Care Provider] - 1-2 days Decision Time: 12:14
--- NOTE | 2019-01-03 09:46 | XR ---
EXAMINATION TYPE: XR chest 2V DATE OF EXAM: 01/03/2019 COMPARISON: Prior chest x-ray 09/21/2017 HISTORY: Weakness TECHNIQUE: Frontal and lateral views of the chest are obtained. FINDINGS: Exam is stable. Thoracic spondylosis is present. Aorta is dense. Patient is rotated. There are overlying cardiac leads. There is no focal air space opacity, pleural effusion, or pneumothorax s een. The cardiac silhouette size is stable Abdomen Limited normal accounting for technique. The osseous structures are intact. IMPRESSION: No acute cardiopulmonary process.
[2019-01-03 10:52] LABS: Basophils % (A) 0 %; Eosinophils # (A) 0.2 k/uL (0-0.7); Eosinophils % (A) 2 %; HCT 35.5 % (34.0-46.0); HGB 11.4 gm/dL (11.4-16.0); Lymphocytes # (A) 0.3 k/uL (1.0-4.8); Lymphocytes % (A) 3 %; MCH 31.1 pg (25.0-35.0); MCHC 32.2 g/dL (31.0-37.0); MCV 96.5 fL (80.0-100.0); Mean Platelet Volume 7.7; Monocytes # (A) 0.1 k/uL (0-1.0); Monocytes % (A) 1 %; Neutrophils # (A) 9.3 k/uL (1.3-7.7); Neutrophils % (A) 94 %; Platelet Count 265 k/uL (150-450); RBC 3.68 m/uL (3.80-5.40); RDW 12.8 % (11.5-15.5); WBC 9.9 k/uL (3.8-10.6)
[2019-01-03 11:01] LABS: Partial Thromboplastin Time 24.8 sec (22.0-30.0); Prothrombin Time 10.6 sec (9.0-12.0)
[2019-01-03 11:04] LABS: Calcium 9.4 mg/dL (8.4-10.2); Magnesium 2.1 mg/dL (1.6-2.3); Potassium 4.2 mmol/L (3.5-5.1); Total Bilirubin 0.9 mg/dL (0.2-1.3); Total Protein 6.8 g/dL (6.3-8.2)
[2019-01-03 12:07] LABS: Appearance,Urine Clear (Clear); Bacteria,Urine Rare /hpf; Bilirubin,Urine Negative (Negative); Blood,Urine Negative (Negative); Color,Urine Yellow; Glucose,Urine (UA) Negative (Negative); Ketones,Urine Negative (Negative); Leukocyte Esterase,Urine Small (Negative); Nitrite,Urine Negative (Negative); PH, Urine 6.5 (5.0-8.0); Protein,Urine 1+ (Negative); RBC,Urine 1 /hpf (0-5); Specific Gravity,Urine 1.007 (1.001-1.035); Urobilinogen,Urine <2.0 mg/dL (<2.0); WBC,Urine 18 /hpf (0-5)
[2019-01-03] MEDS ORDERED: ACETAMINOPHEN TAB 500 MG TAB PO STA (12:14)
[2019-01-03] MEDS ORDERED: cefTRIAXone IN SWFI 1,000 MG/10 ML SYRINGE IVP STA (12:15)
[2019-01-03] MEDS ORDERED: NALOXONE 0.4 MG/ML 1 ML VIAL IV PRN (12:15)
[2019-01-03] MEDS ORDERED: ACETAMINOPHEN TAB 325 MG TAB PO PRN (12:15)
[2019-01-03] MEDS ORDERED: SODIUM CHLORIDE 0.9% 1,000 ML IV SCH (12:15)
[2019-01-03] MEDS ORDERED: SODIUM CHLORIDE 0.9% 500 ML 500 ML IV STA (12:16)
[2019-01-03] MEDS ORDERED: diphenhydrAMINE 50 MG/ML 1 ML VIAL IVP STA (16:47)
[2019-01-03] MEDS ORDERED: diphenhydrAMINE 50 MG/ML 1 ML VIAL IVP PRN (18:44)
[2019-01-03] MEDS: VIT A,C & E-LUTEIN-MINERALS 1 EACH TAB PO SCH (22:22)
[2019-01-03] MEDS: APIXABAN 5 MG TAB PO SCH (22:22)
[2019-01-03] MEDS: FAMOTIDINE 20 MG TAB PO SCH (22:22)
[2019-01-03] MEDS: amLODIPine 5 MG TAB PO SCH (22:23)
[2019-01-03] MEDS ORDERED: diphenhydrAMINE 25 MG CAP PO PRN (22:35)
--- NOTE | 2019-01-03 22:47 | P.HPIM ---
History of Present Illness H&P Date: 01/03/19 Chief Complaint: Weak and tired History of presenting complaint: This is a pleasant 83-year-old patient of Dr. Casarez. Chronic stable medical conditions include atrial fibrillation on eliquis, GERD, hypertension, osteoarthritis, hypothyroid, hiatal hernia. Around December 20 patient had food poisoning had gone to the ER. Was kept there for a few hours. Patient had been home for about 5 days when she was called that she had a UTI and was prescribed antibiotic for 7 days. Subsequently patient was sitting on the porch and became sleepy and she got sunburned in the arms or legs. Since then she's had been feeling a cheek quite a bit. And has a reddish hue on the arms and legs. Decreased energy tired rundown. Had a short run of diarrhea. We checked is improved. Appetite had not been good. Because of all these symptoms put together she decided to come in. Has no further burning in the urine. Or dysuria. Review of systems: GEN.: Weak and tired EYES: None HEENT: None NECK: None RESPIRATORY: None CARDIOVASCULAR: None GASTROINTESTINAL: None GENITOURINARY: As above MUSCULOSKELETAL: None LYMPHATICS: None HEMATOLOGICAL: None PSYCHIATRY: None NEUROLOGICAL: None Social history: , does not smoke or drink alcohol. Family history: Cancer, Graves' disease Physical examination: VITAL SIGNS: 98.3, 96, 18, 145/83, 99% room air GENERAL: Average built, lying in bed tired appearing. EYES: Pupils equal. Conjunctiva normal. HEENT: External appearance of nose and ears normal, oral cavity a bit dry. NECK: JVD not raised; masses not palpable. HEART: First and second heart sounds are normal; no edema. LUNGS: Respiratory rate normal; clear to auscultation. ABDOMEN: Soft, nontender, liver spleen not palpable, no masses palpable. PSYCH: Alert and oriented x3; mood and affect normal. NEUROLOGICAL: Cranial nerves grossly intact; no facial asymmetry, power and sensation grossly intact. LYMPHATICS: No lymph nodes palpable in the axilla and neck DERMATOLOGICAL: Very soft and red discoloration of the exposed area of the arms and lower extremity. All confluent and generalized INVESTIGATIONS, reviewed in the clinical context: White count 9.9 hemoglobin 11.4 potassium 4.2 bun 48 5 creatinine 1.43 EKG tracing personally reviewed by me shows atrial flutter Chest x-ray film personally reviewed by me shows no obvious infiltrate. Chest x-ray report also reviewed Assessment: -Acute renal failure likely prerenal possible acute tubular necrosis could be from medications and prerenal, was positive worse patient's symptoms of feeling weak tired rundown -Patient currently has no urine symptoms and has already been treated for the same. We'll discontinue the IV antibiotics. -Acute sunburn rash on the exposed areas of the arms and lower extremity. We will use calamine lotion. -Persistent atrial flutter fibrillation for which patient chronically liquids -GERD -Essential hypertension -Primary osteoarthritis - Plan: ARB and diuretic will be discontinued. Patient was given IV fluids. We will just use Benadryl on a when necessary basis. Also use calamine lotion on the sunburned area. I hope patient to respond in 1-2 days of this treatment. Follow I's closely. Care was discussed with the patient. Patient's antibiotic is also being discontinued. Repeat labs in the morning. Past Medical History Past Medical History: Atrial Fibrillation, Cancer, GERD/Reflux, Hypertension, Osteoarthritis (OA), Thyroid Disorder Additional Past Medical History / Comment(s): States irregular heart beat, Varicose Veins, Hx of 3 doses of radioactive iodine for Thyroid tx"for over active thyroid"., HX of a fall ,"headaches", pancreatitis, sinus infections, past gout, cataracts(sx done), hiatal hernia, uterine cancer >25 years ago(sx only), uti History of Any Multi-Drug Resistant Organisms: None Reported Past Surgical History: Cholecystectomy, Hysterectomy, Joint Replacement, Orthopedic Surgery, Tonsillectomy Additional Past Surgical History / Comment(s): PARTIAL LEFT HIP AND THEN TOTAL LEFT HIP., RIGHT CATARACT ([facility]). cataract BL Past Anesthesia/Blood Transfusion Reactions: No Reported Reaction Past Psychological History: Anxiety Additional Psychological History / Comment(s): pt lives with her bi. pt is independant. no home care services, no medical equipment. Smoking Status: Never smoker Past Alcohol Use History: None Reported Past Drug Use History: None Reported - Past Family History Sister(s) Family Medical History: Cancer Mother Additional Family Medical History / Comment(s): graves disease. comiited alhaji edieanu in 1941 Father Family Medical History: Myocardial Infarction ([place]) Medications and Allergies Home Medications Medication Instructions Recorded Confirmed Type Citalopram Hydrobromide [CeleXA] 40 mg PO DAILY 12/20/16 01/03/19 History amLODIPine BESYLATE [Norvasc] 5 mg PO HS 12/20/16 01/03/19 History Apixaban [Eliquis] 5 mg PO BID 01/03/19 01/03/19 History Loratadine [Claritin] 10 mg PO DAILY 01/03/19 01/03/19 History Losartan/Hydrochlorothiazide 1 tab PO DAILY 01/03/19 01/03/19 History [Losartan-Hctz 100-12.5 mg Tab] Nitrofurantoin Monohyd/M-Cryst 100 mg PO Q12HR 01/03/19 01/03/19 History [Macrobid] Vit C/E/Zn/Coppr/Lutein/Zeaxan 1 cap PO HS 01/03/19 01/03/19 History [Preservision Areds 2 Softgel] Allergies Allergy/AdvReac Type Severity Reaction Status Date / Time rofecoxib [From Vioxx] Allergy Unknown Hypertensio Verified 01/03/19 09:08 n sertraline [From Zoloft] Allergy Unknown Rash/Hives Verified 01/03/19 09:08 shellfish derived [Shellfish] AdvReac Severe Nausea & Verified 01/03/19 09:08 Vomiting, Very Ill. celecoxib [From Celebrex] AdvReac Unknown Loss of Verified 01/03/19 09:08 Balance Physical Exam Vitals: Vital Signs Temp Pulse Pulse Resp BP BP Pulse Ox 01/03/19 18:12 98.2 F 60 16 111/66 97 01/03/19 16:00 65 19 106/50 96 01/03/19 15:30 68 17 104/49 96 01/03/19 14:00 61 18 100/59 96 01/03/19 13:30 82 18 116/54 96 01/03/19 13:00 93 15 130/84 98 01/03/19 12:30 101 H 16 119/67 99 01/03/19 12:00 90 16 125/69 99 01/03/19 11:00 112 H 19 122/63 91 L 01/03/19 10:30 92 17 114/72 96 01/03/19 08:51 98.3 F 96 18 145/83 99 Intake and Output 01/03/19 01/03/19 01/03/19 06:59 14:59 22:59 Other: Weight 68.039 kg Results CBC & Chem 7: 01/03/19 09:01 01/03/19 09:01 Labs: Abnormal Lab Results - Last 24 Hours (Table) 01/03/19 01/03/19 01/03/19 Range/Units 09:01 09:01 11:45 RBC 3.68 L (3.80-5.40) m/uL Neutrophils # 9.3 H (1.3-7.7) k/uL Lymphocytes # 0.3 L (1.0-4.8) k/uL Sodium 136 L (137-145) mmol/L BUN 45 H (7-17) mg/dL Creatinine 1.43 H (0.52-1.04) mg/dL Glucose 125 H (74-99) mg/dL Urine Protein 1+ H (Negative) Ur Leukocyte Esterase Small H (Negative) Urine WBC 18 H (0-5) /hpf Urine WBC Clumps Rare H (None) /hpf Urine Bacteria Rare H (None) /hpf Microbiology - Last 24 Hours (Table) 01/03/19 11:45 Urine Culture - Preliminary Urine,Catheterized Thrombosis Risk Factor Assmnt - Choose All That Apply Any of the Below Risk Factors Present?: No Other Risk Factors: No Thrombosis Risk Factor Assessment Level: Very Low Risk
[2019-01-04] MEDS: CALAMINE/ZINC OXIDE LOTION 177 ML BTL TOPICAL SCH ×4 (00:30→22:27)
[2019-01-04] MEDS: SODIUM CHLORIDE 0.9% 1,000 ML IV SCH ×3 (00:30→19:27)
[2019-01-04] MEDS ORDERED: NON-FORMULARY DRUG (Losartan/Hydrochlorothiazide [Losartan-Hctz 100-12.5 Mg Tab] 1 TAB) PO SCH (09:00)
[2019-01-04] MEDS ORDERED: HYDROCHLOROTHIAZIDE 12.5 MG CAP PO SCH (09:00)
[2019-01-04] MEDS ORDERED: LOSARTAN 50 MG TAB PO SCH (09:00)
[2019-01-04] MEDS: CITALOPRAM HYDROBROMIDE 20 MG TAB PO SCH (09:14)
[2019-01-04] MEDS: FAMOTIDINE 20 MG TAB PO SCH (09:14)
[2019-01-04] MEDS: APIXABAN 5 MG TAB PO SCH ×2 (09:14→22:26)
[2019-01-04 09:18] LABS: Calcium 8.5 mg/dL (8.4-10.2); Potassium 4.7 mmol/L (3.5-5.1)
[2019-01-04] MEDS ORDERED: FAMOTIDINE 20 MG TAB PO SCH (14:30)
--- NOTE | 2019-01-04 15:55 | P.PN ---
Progress Note - Text Progress Note Date: 01/04/19 Chief Complaint: Weak and tired History of presenting complaint: This is a pleasant 83-year-old patient of Dr. Casarez. Chronic stable medical conditions include atrial fibrillation on eliquis, GERD, hypertension, osteoarthritis, hypothyroid, hiatal hernia. Around December 20 patient had food poisoning had gone to the ER. Was kept there for a few hours. Patient had been home for about 5 days when she was called that she had a UTI and was prescribed antibiotic for 7 days. Subsequently patient was sitting on the porch and became sleepy and she got sunburned in the arms or legs. Since then she's had been feeling a cheek quite a bit. And has a reddish hue on the arms and legs. Decreased energy tired rundown. Had a short run of diarrhea. We checked is improved. Appetite had not been good. Because of all these symptoms put together she decided to come in. Has no further burning in the urine. Or dysuria. Patient admitted with a diagnosis of acute renal failure. Has no UTI. Also had acute sunburn. Today-patient's family's visiting. Feels better. Less itchy. More awake. Getting IV fluids.up to the bathroom. Review of systems: Was done for constitutional, cardiovascular, GI, pulmonary. relevant finding as above Active Medications Acetaminophen (Tylenol Tab) 650 mg PO Q6HR PRN PRN Reason: Mild Pain or Fever > 100.5 Amlodipine Besylate (Norvasc) 5 mg PO HS [facility] Last Admin: 01/03/19 22:23 Dose: 5 mg Documented by: Apixaban (Eliquis) 5 mg PO BID [facility] Last Admin: 01/04/19 09:14 Dose: 5 mg Documented by: Calamine (Calamine Lotion) 1 applic TOPICAL TID [facility] Last Admin: 01/04/19 15:29 Dose: Not Given Documented by: Citalopram Hydrobromide (Celexa) 40 mg PO DAILY [facility] Last Admin: 01/04/19 09:14 Dose: 40 mg Documented by: Diphenhydramine HCl (Benadryl) 25 mg PO QID PRN PRN Reason: itching Famotidine (Pepcid) 20 mg PO DAILY [facility] Sodium Chloride (Saline 0.9%) 1,000 mls @ 100 mls/hr IV .Q10H [facility] Last Admin: 01/04/19 09:15 Dose: 100 mls/hr Documented by: Multivitamins/Minerals (Ivite) 1 each PO HS [facility] Last Admin: 01/03/19 22:22 Dose: 1 each Documented by: Naloxone HCl (Narcan) 0.2 mg IV Q2M PRN PRN Reason: Opioid Reversal Physical examination: VITAL SIGNS: 97.9, 77, 16, 108/58, 96% room air GENERAL: laying in bed, more awake EYES: Pupils equal. Conjunctiva normal. HEENT: External appearance of nose and ears normal, oral cavity a bit dry. NECK: JVD not raised; masses not palpable. HEART: First and second heart sounds are normal; no edema. LUNGS: Respiratory rate normal; clear to auscultation. ABDOMEN: Soft, nontender, liver spleen not palpable, no masses palpable. PSYCH: Alert and oriented x3; mood and affect normal. DERMATOLOGICAL: Very soft and red discoloration of the exposed area of the arms and lower extremity. All confluent and generalized INVESTIGATIONS, reviewed in the clinical context: potassium 4.7. bun 36 creatinine 1.41 Previous labs: EKG tracing personally reviewed by me shows atrial flutter Chest x-ray film personally reviewed by me shows no obvious infiltrate. Chest x-ray report also reviewed Assessment: -Acute renal failure likely prerenal possible acute tubular necrosis could be from medications and prerenal, was positive worse patient's symptoms of feeling weak tired rundown -Patient currently has no urine symptoms and has already been treated for the same. We'll discontinue the IV antibiotics. -Acute sunburn rash on the exposed areas of the arms and lower extremity. We will use calamine lotion. -Persistent atrial flutter fibrillation for which patient chronically on eliquiss -GERD -Essential hypertension -Primary osteoarthritis - Plan: patient started to feel a bit better. Continue with IV fluids.expect renal function to done around by tomorrow. Encouraged to be out of bed..care was discussed with the patient of the bedside
[2019-01-04] MEDS: VIT A,C & E-LUTEIN-MINERALS 1 EACH TAB PO SCH (22:26)
[2019-01-04] MEDS: amLODIPine 5 MG TAB PO SCH (22:26)
[2019-01-05] MEDS: SODIUM CHLORIDE 0.9% 1,000 ML IV SCH (05:13)
[2019-01-05 06:03] VITALS: BP 113/63; PULSE 60; RESP 16; TEMP 97.5
[2019-01-05] MEDS: CITALOPRAM HYDROBROMIDE 20 MG TAB PO SCH (07:54)
[2019-01-05] MEDS: APIXABAN 5 MG TAB PO SCH (07:55)
[2019-01-05] MEDS: CALAMINE/ZINC OXIDE LOTION 177 ML BTL TOPICAL SCH (07:55)
[2019-01-05 08:35] LABS: Calcium 8.4 mg/dL (8.4-10.2); Potassium 3.9 mmol/L (3.5-5.1)
[2019-01-05] MEDS ORDERED: LACTATED RINGERS 1,000 ML IV SCH (10:15)
--- NOTE | 2019-01-05 23:15 | P.DS ---
Providers Date of admission: 01/03/19 12:15 Expected date of discharge: 01/05/19 Attending physician: Robin Guy Primary care physician: Akbar Casarez [facility] Course: Hospital course: This is a pleasant 83-year-old patient of Dr. Casarez. Chronic stable medical conditions include atrial fibrillation on eliquis, GERD, hypertension, osteoarthritis, hypothyroid, hiatal hernia. Around December 20 patient had food poisoning had gone to the ER. Was kept there for a few hours. Patient had been home for about 5 days when she was called that she had a UTI and was prescribed antibiotic for 7 days. Subsequently patient was sitting on the porch and became sleepy and she got sunburned in the arms or legs. Since then she's had been feeling a cheek quite a bit. And has a reddish hue on the arms and legs. Decreased energy tired rundown. Had a short run of diarrhea. We checked is improved. Appetite had not been good. Because of all these symptoms put together she decided to come in. Has no further burning in the urine. Or dysuria. Patient admitted with a diagnosis of acute renal failure. Has no UTI. Also had acute sunburn. It was not felt the need for any antibiotics. Given IV fluids. Patient's ARB/diuretic was discontinued. Also given calamine lotion. Patient is back to baseline by the time of discharge up and about. Creatinine did drop from 1.43 down to 1.15 Physical examination: VITAL SIGNS: 97.5, 60, 16, 113/63, 95% room air GENERAL: Sitting up, comfortable EYES: Pupils equal. Conjunctiva normal. HEENT: External appearance of nose and ears normal, oral cavity a bit dry. NECK: JVD not raised; masses not palpable. HEART: First and second heart sounds are normal; no edema. LUNGS: Respiratory rate normal; clear to auscultation. ABDOMEN: Soft, nontender, liver spleen not palpable, no masses palpable. PSYCH: Alert and oriented x3; mood and affect normal. DERMATOLOGICAL: Very soft and red discoloration of the exposed area of the arms and lower extremity. All confluent and generalized INVESTIGATIONS, reviewed in the clinical context: Potassium 3.9 and creatinine 1.15 Previous labs: EKG tracing personally reviewed by me shows atrial flutter Chest x-ray film personally reviewed by me shows no obvious infiltrate. Chest x-ray report also reviewed Assessment: -Acute renal failure likely prerenal , improved -Patient currently has no urine symptoms and has already been treated for the same. We'll discontinue the IV antibiotics. -Acute sunburn rash on the exposed areas of the arms and lower extremity. We will use calamine lotion. -Persistent atrial flutter fibrillation for which patient chronically on eliquiss -GERD -Essential hypertension -Primary osteoarthritis Disposition: Home Patient Condition at Discharge: Stable Plan - Discharge Summary New Discharge Prescriptions: New Calamine/Zinc Oxide Lotion [Calamine Lotion] 1 applic TOPICAL TID applic Continue Citalopram Hydrobromide [CeleXA] 40 mg PO DAILY amLODIPine BESYLATE [Norvasc] 5 mg PO HS Vit C/E/Zn/Coppr/Lutein/Zeaxan [Preservision Areds 2 Softgel] 1 cap PO HS Apixaban [Eliquis] 5 mg PO BID Discontinued Losartan/Hydrochlorothiazide [Losartan-Hctz 100-12.5 mg Tab] 1 tab PO DAILY Loratadine [Claritin] 10 mg PO DAILY Discharge Medication List Citalopram Hydrobromide [CeleXA] 40 mg PO DAILY 12/20/16 [History] amLODIPine BESYLATE [Norvasc] 5 mg PO HS 12/20/16 [History] Apixaban [Eliquis] 5 mg PO BID 01/03/19 [History] Vit C/E/Zn/Coppr/Lutein/Zeaxan [Preservision Areds 2 Softgel] 1 cap PO HS 01/03/19 [History] Calamine/Zinc Oxide Lotion [Calamine Lotion] 1 applic TOPICAL TID applic 01/05/19 [Rx] Follow up Appointment(s)/Referral(s): Cuate Casarez MD [Primary Care Provider] - 3 Days Patient Instructions/Handouts: Dehydration (DC), Acute Kidney Injury (DC) Activity/Diet/Wound Care/Special Instructions: daily BP log at home. Discharge Disposition: HOME SELF-CARE
== END 2019-01-05 13:23 | disposition home or self-care (01) ==
LOC: EC 08:50 → 4MS4W 12:15
PROVIDERS: ADMIT Hospitalist; ATTEND Hospitalist
DX: N17.9 Acute kidney failure, unspecified (principal); I48.1 Persistent atrial fibrillation; L55.9 Sunburn, unspecified; I48.92 Unspecified atrial flutter; K21.9 Gastro-esophageal reflux disease without esophagitis; I10 Essential (primary) hypertension; M19.91 Primary osteoarthritis, unspecified site; K44.9 Diaphragmatic hernia without obstruction or gangrene; M10.9 Gout, unspecified; I83.90 Asymptomatic varicose veins of unspecified lower extremity; F41.9 Anxiety disorder, unspecified; E03.9 Hypothyroidism, unspecified; R19.7 Diarrhea, unspecified; Z79.01 Long term (current) use of anticoagulants; Z79.899 Other long term (current) drug therapy; Z88.6 Allergy status to analgesic agent; Z88.8 Allergy status to other drugs, medicaments and biological substances; Z91.013 Allergy to seafood; Z85.42 Personal history of malignant neoplasm of other parts of uterus; Z91.81 History of falling; Z87.19 Personal history of other diseases of the digestive system; Z98.42 Cataract extraction status, left eye; Z98.41 Cataract extraction status, right eye; Z87.440 Personal history of urinary (tract) infections; Z90.49 Acquired absence of other specified parts of digestive tract; Z96.642 Presence of left artificial hip joint; Z90.710 Acquired absence of both cervix and uterus; Z82.49 Family history of ischemic heart disease and other diseases of the circulatory system; Z83.49 Family history of other endocrine, nutritional and metabolic diseases; Z81.8 Family history of other mental and behavioral disorders; Z80.9 Family history of malignant neoplasm, unspecified
CPT/HCPCS: 96361 ×4; 96375; 96374; 99285; 36415; 93005; 80053; 80048 ×2; 83605; 83735; 84484; 85025; 85610; 85730; 81001; 87086; 71046; G0378 ×3; J1200; J0696

== ENCOUNTER 2019-01-11 08:12 | Emergency (ER) | payer MEDICARE ==
[2019-01-11 08:20] VITALS: RESP 18
[2019-01-11] MEDS ORDERED: diphenhydrAMINE 50 MG/ML 1 ML VIAL IVP STA (08:37)
--- NOTE | 2019-01-11 08:39 | ED ---
General Adult HPI - General Chief complaint: Weakness Stated complaint: Nausea/vomiting Time Seen by Provider: 01/11/19 08:13 Source: patient, EMS Mode of arrival: EMS Limitations: no limitations - History of Present Illness Initial comments: Dictation was produced using [employer] dictation software. please excuse any grammatical, word or spelling errors. Chief Complaint: 83-year-old female with multiple comorbidities presents with a myriad of complaints including total body weakness, back pain, neck pain, skin pain, restlessness History of Present Illness: And 83-year-old female. She has multiple comorbidities. She is here for multiple complaints. When redirected her main complaint is skin pain. Patient was recently admitted to the hospital. She was admitted at that time for weakness and mild dehydration with affect on the kidneys. Patient was recently treated for urinary tract infection. Patient states that since last night she's been having mild headache, back pain. She reports that she is here mainly for the skin pain and itching. Patient was recently diagnosed with mild sunburn. She is told to apply calamine lotion to the area. Patient was also discharged with Tylenol with instructions for ad equate hydration. Patient denies any neurologic symptoms at this time. She states she has these headaches that are frequent. Today's headache is typical for her. The ROS documented in this emergency department record has been reviewed and confirmed by me. Those systems with pertinent positive or negative responses have been documented in the HPI. All other systems are other negative and/or noncontributory. PHYSICAL EXAM: General Impression: Alert and oriented x3, not in acute distress HEENT: Normocephalic atraumatic, extra-ocular movements intact, pupils equal and reactive to light bilaterally, mucous membranes moist. Cardiovascular: Heart regular rate and rhythm, S1&S2 audible, no murmurs, rubs or gallops Chest: Lungs clear to auscultation bilaterally, no rhonchi, no wheeze, no rales Abdomen: Bowel sounds present, abdomen soft, non-tender, non-distended, no organomegaly Musculoskeletal: Pulses present and equal in all extremities, no peripheral edema Motor: no focal deficits noted Neurological: CN II-XII grossly intact, no focal motor or sensory deficits noted Skin: Intact with no visualized rashes Psych: Normal affect and mood ED course:-year-old female presents with multiple complaints. Her main complaint is skin pain. Patient was recently diagnosed with mild skin information secondary to sunburn. Physical examination is benign. Vital signs upon arrival are within acceptable limits. Laboratory evaluation obtained. CBC, coag panel, metabolic panel is grossly unremarkable. Urinalysis is negative. Patient treated with diphenhydramine Zofran and intravenous fluids. She reevaluated at bedside and she is told of the results of her testing which showed no acute processes. She is also had chest x-ray and abdominal x-ray which were unremarkable. She reports that her skin feels better after being administered at diphenhydramine. This point there is no findings of life-threatening disease. Reassurance is provided. Patient has good outpatient follow-up with her primary care physician. Patient clear for discharge. She is told to take [id number] Benadryl when necessary skin symptoms. She is also given prescription for Atarax. EKG interpretation: Ventricular rate 90, atrial fibrillation, QRS 124, QTC 477. No KS prolongation, no QTC prolongation, no ST or T-wave changes noted. EKG compared to 01/03/2019 showing no changes. Overall, this EKG is unremarkable - Related Data Home Medications Medication Instructions Recorded Confirmed Citalopram Hydrobromide [CeleXA] 40 mg PO DAILY 12/20/16 01/11/19 Apixaban [Eliquis] 5 mg PO BID 01/03/19 01/11/19 Vit C/E/Zn/Coppr/Lutein/Zeaxan 1 cap PO HS 01/03/19 01/11/19 [Preservision Areds 2 Softgel] Calcium Carbonate [Calcium] 600 mg PO DAILY 01/11/19 01/11/19 Losartan/Hydrochlorothiazide 1 tab PO DAILY 01/11/19 01/11/19 [Losartan-Hctz 100-25 mg Tab] amLODIPine [Norvasc] 10 mg PO HS 01/11/19 01/11/19 Previous Rx's Medication Instructions Recorded hydrOXYzine HCL [Atarax] 10 mg PO TID PRN #12 tab 01/11/19 Allergies Allergy/AdvReac Type Severity Reaction Status Date / Time nitrofurantoin Allergy Unknown Itching Verified 01/11/19 09:11 [From Macrobid] rofecoxib [From Vioxx] Allergy Unknown Hypertensio Verified 01/11/19 09:11 n sertraline [From Zoloft] Allergy Unknown Rash/Hives Verified 01/11/19 09:11 shellfish derived [Shellfish] AdvReac Severe Nausea & Verified 01/11/19 09:11 Vomiting, Very Ill. celecoxib [From Celebrex] AdvReac Unknown Loss of Verified 01/11/19 09:11 Balance Review of Systems ROS Statement: Those systems with pertinent positive or pertinent negative responses have been documented in the HPI. ROS Other: All systems not noted in ROS Statement are negative. Past Medical History Past Medical History: Atrial Fibrillation, Cancer, GERD/Reflux, Hypertension, Osteoarthritis (OA), Thyroid Disorder Additional Past Medical History / Comment(s): States irregular heart beat, Varicose Veins, Hx of 3 doses of radioactive iodine for Thyroid tx"for over active thyroid"., HX of a fall ,"headaches", pancreatitis, sinus infections, past gout, cataracts(sx done), hiatal hernia, uterine cancer >25 years ago(sx only), uti History of Any Multi-Drug Resistant Organisms: None Reported Past Surgical History: Cholecystectomy, Hysterectomy, Joint Replacement, Orthopedic Surgery, Tonsillectomy Additional Past Surgical History / Comment(s): PARTIAL LEFT HIP AND THEN TOTAL LEFT HIP., RIGHT CATARACT ([facility]). cataract BL Past Anesthesia/Blood Transfusion Reactions: No Reported Reaction Past Psychological History: Anxiety Smoking Status: Never smoker Past Alcohol Use History: None Reported Past Drug Use History: None Reported - Past Family History Sister(s) Family Medical History: Cancer Mother Additional Family Medical History / Comment(s): graves disease. comiited suicide in 1941 Father Family Medical History: Myocardial Infarction ([place]) General Exam Limitations: no limitations Course Vital Signs 01/11/19 01/11/19 08:14 10:44 Temperature 98 F Pulse Rate 98 97 Respiratory 18 18 Rate Blood Pressure 154/87 144/76 O2 Sat by Pulse 96 96 Oximetry Medical Decision Making - Lab Data Result diagrams: 01/11/19 08:58 01/11/19 08:58 Lab Results 01/11/19 01/11/19 01/11/19 Range/Units 08:58 08:58 08:58 WBC 13.0 H (3.8-10.6) k/uL RBC 3.78 L (3.80-5.40) m/uL Hgb 11.8 (11.4-16.0) gm/dL Hct 35.9 (34.0-46.0) % MCV 95.2 (80.0-100.0) fL MCH 31.3 (25.0-35.0) pg MCHC 32.8 (31.0-37.0) g/dL RDW 12.8 (11.5-15.5) % Plt Count 307 (150-450) k/uL Neutrophils % 82 % Lymphocytes % 7 % Monocytes % 3 % Eosinophils % 7 % Basophils % 0 % Neutrophils # 10.6 H (1.3-7.7) k/uL Lymphocytes # 0.8 L (1.0-4.8) k/uL Monocytes # 0.4 (0-1.0) k/uL Eosinophils # 1.0 H (0-0.7) k/uL Basophils # 0.1 (0-0.2) k/uL PT (9.0-12.0) sec INR (<1.2) Sodium 140 (137-145) mmol/L Potassium 3.9 (3.5-5.1) mmol/L Chloride 104 (98-107) mmol/L Carbon Dioxide 28 (22-30) mmol/L Anion Gap 8 mmol/L BUN 19 H (7-17) mg/dL Creatinine 1.23 H (0.52-1.04) mg/dL Est GFR (CKD-EPI)AfAm 47 (>60 ml/min/1.73 sqM) Est GFR (CKD-EPI)NonAf 41 (>60 ml/min/1.73 sqM) Glucose 125 H (74-99) mg/dL Plasma Lactic Acid Arley 1.6 (0.7-2.0) mmol/L Calcium 9.7 (8.4-10.2) mg/dL Magnesium 2.2 (1.6-2.3) mg/dL Total Bilirubin 0.8 (0.2-1.3) mg/dL AST 26 (14-36) U/L ALT 25 (9-52) U/L Alkaline Phosphatase 78 (38-126) U/L Creatine Kinase 28 L (30-135) U/L Troponin I (0.000-0.034) ng/mL Total Protein 6.8 (6.3-8.2) g/dL Albumin 3.9 (3.5-5.0) g/dL Lipase 210 (23-300) U/L Urine Color Urine Appearance (Clear) Urine pH (5.0-8.0) Ur Specific [place] (1.001-1.035) Urine Protein (Negative) Urine Glucose (UA) (Negative) Urine Ketones (Negative) Urine Blood (Negative) Urine Nitrite (Negative) Urine Bilirubin (Negative) Urine Urobilinogen (<2.0) mg/dL Ur Leukocyte Esterase (Negative) 01/11/19 01/11/19 01/11/19 Range/Units 08:58 08:58 11:52 WBC (3.8-10.6) k/uL RBC (3.80-5.40) m/uL Hgb (11.4-16.0) gm/dL Hct (34.0-46.0) % MCV (80.0-100.0) fL MCH (25.0-35.0) pg MCHC (31.0-37.0) g/dL RDW (11.5-15.5) % Plt Count (150-450) k/uL Neutrophils % % Lymphocytes % % Monocytes % % Eosinophils % % Basophils % % Neutrophils # (1.3-7.7) k/uL Lymphocytes # (1.0-4.8) k/uL Monocytes # (0-1.0) k/uL Eosinophils # (0-0.7) k/uL Basophils # (0-0.2) k/uL PT 10.2 (9.0-12.0) sec INR 0.9 (<1.2) Sodium (137-145) mmol/L Potassium (3.5-5.1) mmol/L Chloride (98-107) mmol/L Carbon Dioxide (22-30) mmol/L Anion Gap mmol/L BUN (7-17) mg/dL Creatinine (0.52-1.04) mg/dL Est GFR (CKD-EPI)AfAm (>60 ml/min/1.73 sqM) Est GFR (CKD-EPI)NonAf (>60 ml/min/1.73 sqM) Glucose (74-99) mg/dL Plasma Lactic Acid Arley (0.7-2.0) mmol/L Calcium (8.4-10.2) mg/dL Magnesium (1.6-2.3) mg/dL Total Bilirubin (0.2-1.3) mg/dL AST (14-36) U/L ALT (9-52) U/L Alkaline Phosphatase (38-126) U/L Creatine Kinase (30-135) U/L Troponin I <0.012 (0.000-0.034) ng/mL Total Protein (6.3-8.2) g/dL Albumin (3.5-5.0) g/dL Lipase (23-300) U/L Urine Color Light Yellow Urine Appearance Clear (Clear) Urine pH 6.5 (5.0-8.0) Ur Specific [place] 1.005 (1.001-1.035) Urine Protein Negative (Negative) Urine Glucose (UA) Negative (Negative) Urine Ketones Negative (Negative) Urine Blood Negative (Negative) Urine Nitrite Negative (Negative) Urine Bilirubin Negative (Negative) Urine Urobilinogen <2.0 (<2.0) mg/dL Ur Leukocyte Esterase Negative (Negative) Disposition Clinical Impression: Skin abnormalities Disposition: HOME SELF-CARE Condition: Good Instructions (If sedation given, give patient instructions): Itchy Skin (ED) Prescriptions: hydrOXYzine HCL [Atarax] 10 mg PO TID PRN #12 tab PRN Reason: pruritus Is patient prescribed a controlled substance at d/c from ED?: No Referrals: Cuate Casarez MD [Primary Care Provider] - 1-2 days Time of Disposition: 12:40
[2019-01-11] MEDS ORDERED: SODIUM CHLORIDE 0.9% 500 ML IV STA (08:45)
[2019-01-11] MEDS ORDERED: ONDANSETRON 4 MG/2 ML VIAL IVP STA (08:45)
[2019-01-11 09:22] LABS: Albumin 3.9 g/dL (3.5-5.0); Calcium 9.7 mg/dL (8.4-10.2); Magnesium 2.2 mg/dL (1.6-2.3); Potassium 3.9 mmol/L (3.5-5.1); Total Bilirubin 0.8 mg/dL (0.2-1.3); Total Protein 6.8 g/dL (6.3-8.2)
[2019-01-11 09:30] LABS: INR 0.9 (<1.2); Prothrombin Time 10.2 sec (9.0-12.0)
[2019-01-11 09:59] LABS: Basophils # (A) 0.1 k/uL (0-0.2); Basophils % (A) 0 %; Eosinophils % (A) 7 %; HCT 35.9 % (34.0-46.0); HGB 11.8 gm/dL (11.4-16.0); Lymphocytes # (A) 0.8 k/uL (1.0-4.8); Lymphocytes % (A) 7 %; MCH 31.3 pg (25.0-35.0); MCHC 32.8 g/dL (31.0-37.0); MCV 95.2 fL (80.0-100.0); Mean Platelet Volume 7.5; Monocytes # (A) 0.4 k/uL (0-1.0); Monocytes % (A) 3 %; Neutrophils # (A) 10.6 k/uL (1.3-7.7); Neutrophils % (A) 82 %; Platelet Count 307 k/uL (150-450); RBC 3.78 m/uL (3.80-5.40); RDW 12.8 % (11.5-15.5)
--- NOTE | 2019-01-11 10:00 | XR ---
EXAMINATION TYPE: XR chest 2V DATE OF EXAM: 01/11/2019 HISTORY: Pain. REFERENCE: Previous study dated 01/03/2019. FINDINGS: The heart is mildly enlarged. The lungs are clear. Pleural spaces are clear. IMPRESSION: MILD CARDIOMEGALY
--- NOTE | 2019-01-11 10:05 | XR ---
EXAMINATION TYPE: XR abdomen 1V , 2 VIEWS DATE OF EXAM ORDERED: 01/11/2019 HISTORY: Pain. COMPARISON: Previous study dated 08/29/2012. FINDINGS: The lung bases are clear. Within the abdomen there is evidence of a previous cholecystectomy. There is a ring calcified calculu s overlying the upper pole of the right kidney. This was present previously. There is no evidence of obstruction or free air. There is a left hip arthroplasty in place. There is degenerative change in t he right hip. There are phleboliths within the pelvis. IMPRESSION: 1. NO EVIDENCE OF OBSTRUCTION. 2. STABLE RING CALCIFICATION WITHIN THE RIGHT UPPER QUADRANT MAY REPRESENT A DROPPED GALLSTONE. 3. POSTSURGICAL CHANGE.
[2019-01-11 11:57] LABS: Appearance,Urine Clear (Clear); Bilirubin,Urine Negative (Negative); Blood,Urine Negative (Negative); Color,Urine Light Yellow; Glucose,Urine (UA) Negative (Negative); Ketones,Urine Negative (Negative); Leukocyte Esterase,Urine Negative (Negative); Nitrite,Urine Negative (Negative); PH, Urine 6.5 (5.0-8.0); Protein,Urine Negative (Negative); Specific Gravity,Urine 1.005 (1.001-1.035); Urobilinogen,Urine <2.0 mg/dL (<2.0)
[2019-01-11 13:02] VITALS: BP 139/77; PULSE 88; TEMP 98.6
== END 2019-01-11 13:02 | disposition home or self-care (01) ==
LOC: EC 08:12
DX: L98.9 Disorder of the skin and subcutaneous tissue, unspecified (principal); I48.91 Unspecified atrial fibrillation; I10 Essential (primary) hypertension; F41.9 Anxiety disorder, unspecified; Z79.01 Long term (current) use of anticoagulants; Z79.899 Other long term (current) drug therapy; Z88.1 Allergy status to other antibiotic agents; Z88.8 Allergy status to other drugs, medicaments and biological substances; Z91.013 Allergy to seafood; Z88.6 Allergy status to analgesic agent; Z85.42 Personal history of malignant neoplasm of other parts of uterus
CPT/HCPCS: 36415; 93005; 80053; 82550; 83605; 83690; 83735; 84484; 85025; 85610; 81003; 87086; 71046; 74018; 99285; 96374; 96375; 96361; J1200; J2405

== ENCOUNTER → 2019-05-10 | Outpatient (CLI) | payer MEDICARE ==
--- NOTE | 2019-05-11 20:31 | CT ---
EXAMINATION TYPE: CT brain wo con DATE OF EXAM: 05/10/2019 COMPARISON: 09/21/2017 HISTORY: 84-year-old female Headache x 1 year. TECHNIQUE: Examination was done in axial plane without intravenous contrast. Coronal and sagittal r econstructions performed. CT DLP: 1108.4 mGycm Automated exposure control for dose reduction was used. FINDINGS: There is no evidence of acute intracranial hemorrhage, acute ischemic changes, mass, mass-effect, or extra-axial fluid collection. There is no effacement of cerebral sulci or basal subarachnoid cister ns. There is no hydrocephalus. There is no midline shift. Patterson-white matter distinction is preserv ed. Mild patchy periventricular white matter hypodensity, unchanged from 09/21/2017. Moderate atherosclerotic calcifications within the V4 segment right vertebral artery and additional c alcifications within the bilateral carotid siphons. Trace mucosal thickening throughout the ethmoid air cells. Mastoid air cells well pneumatized. Orbits and globes are intact. IMPRESSION: Stable mild patchy changes of chronic small vessel ischemic disease. Mild chronic ethmoid sinus disea se. No acute intracranial abnormality seen.
== END | disposition home or self-care (01) ==
LOC: RADCTMAIN 10:25
PROVIDERS: ATTEND Internal Medicine Interventional Cardiology
DX: R51 Headache (principal); Z79.01 Long term (current) use of anticoagulants
CPT/HCPCS: 70450

== ENCOUNTER 2020-11-04 12:53 | Inpatient (IN) | payer MEDICARE ==
[2020-11-04] MEDS ORDERED: SODIUM CHLORIDE 0.9% 500 ML 500 ML IV ONE (13:08)
[2020-11-04] MEDS ORDERED: SODIUM CHLORIDE 0.9% 1,000 ML IV STA (13:08)
--- NOTE | 2020-11-04 13:21 | ED ---
Altered Mental Status HPI - General Chief Complaint: Altered Mental Status Stated Complaint: Stroke Time Seen by Provider: 11/04/20 12:53 Source: patient, EMS, RN notes reviewed, old records reviewed Mode of arrival: EMS Limitations: altered mental status - History of Present Illness Initial Comments: This is an 85-year-old female who is on Eliquis who apparently over the last 3-4 days is demonstrating intermittent slurred speech decreased activity this morning she was found to be demonstrating more of decreased activity with some confusion paramedics were called. The patient in here to this facility. She was found have some left-sided weakness left facial asymmetry. She was not responding to questions very well. During the encounter the patient did become more alert and was able to converse somewhat. She did seem slow to answer questions however. Her weakness seemed to resolved also her facial asymmetry seemed to improve it. No headaches no recent falls no complaints of fevers chills nausea vomiting sweats. She did have a blood pressure 99/67 additionally per paramedics she had a scratch to her chin that she apparently he was picking at. MD Complaint: altered mental status, confusion, decreased responsiveness - Related Data Home Medications Medication Instructions Recorded Confirmed Citalopram Hydrobromide [CeleXA] 40 mg PO DAILY 12/20/16 11/04/20 Losartan/Hydrochlorothiazide 1 tab PO DAILY 01/11/19 11/04/20 [Losartan-Hctz 100-25 mg Tab] amLODIPine [Norvasc] 10 mg PO HS 01/11/19 11/04/20 Apixaban [Eliquis] 2.5 mg PO BID 11/04/20 11/04/20 Donepezil Hcl 23mg 23 mg PO HS 11/04/20 11/04/20 Furosemide [Lasix] 20 mg PO DAILY 11/04/20 11/04/20 Allergies Allergy/AdvReac Type Severity Reaction Status Date / Time nitrofurantoin Allergy Unknown Itching Verified 11/04/20 18:21 [From Macrobid] rofecoxib [From Vioxx] Allergy Unknown Hypertensio Verified 11/04/20 18:21 n sertraline [From Zoloft] Allergy Unknown Rash/Hives Verified 11/04/20 18:21 shellfish derived [Shellfish] AdvReac Severe Nausea & Verified 11/04/20 18:21 Vomiting, Very Ill. celecoxib [From Celebrex] AdvReac Unknown Loss of Verified 11/04/20 18:21 Balance Review of Systems ROS Statement: Those systems with pertinent positive or pertinent negative responses have been documented in the HPI. ROS Other: All systems not noted in ROS Statement are negative. Past Medical History Past Medical History: Atrial Fibrillation, Cancer, GERD/Reflux, Hypertension, Osteoarthritis (OA), Thyroid Disorder Additional Past Medical History / Comment(s): States irregular heart beat, Varicose Veins, Hx of 3 doses of radioactive iodine for Thyroid tx"for over active thyroid"., HX of a fall ,"headaches", pancreatitis, sinus infections, past gout, cataracts(sx done), hiatal hernia, uterine cancer >25 years ago(sx only), uti History of Any Multi-Drug Resistant Organisms: None Reported Past Surgical History: Cholecystectomy, Hysterectomy, Joint Replacement, Orthopedic Surgery, Tonsillectomy Additional Past Surgical History / Comment(s): PARTIAL LEFT HIP AND THEN TOTAL LEFT HIP., RIGHT CATARACT ([facility] cataract BL Past Anesthesia/Blood Transfusion Reactions: No Reported Reaction Past Psychological History: Anxiety Smoking Status: Never smoker Past Alcohol Use History: None Reported Past Drug Use History: None Reported - Past Family History Sister(s) Family Medical History: Cancer Mother Additional Family Medical History / Comment(s): graves disease. comiited suicide in 1941 Father Family Medical History: Myocardial Infarction ([place]) General Exam - General Exam Comments Initial Comments: This is a well-developed well-nourished awake alert but slow to respond female Limitations: altered mental status General appearance: alert, lethargic Head exam: Present: atraumatic, normocephalic, normal inspection, other (Patient does have abrasion to the chin with localized erythema no evidence of any drainage or lymphangitis) Eye exam: Present: normal appearance, PERRL, EOMI. Absent: scleral icterus, conjunctival injection, periorbital swelling ENT exam: Present: mucous membranes dry Neck exam: Present: normal inspection, full ROM, other (No stridor JVD or bruits) Respiratory exam: Present: normal lung sounds bilaterally Cardiovascular Exam: Present: irregular rhythm GI/Abdominal exam: Present: soft, normal bowel sounds. Absent: distended, tenderness, guarding, rebound, rigid Extremities exam: Present: normal inspection Back exam: Present: normal inspection, full ROM Neurological exam: Present: alert, other (Her NIH scores approximate 7). Absent: CN II-XII intact Psychiatric exam: Present: other (Unable to fully evaluate) Skin exam: Present: warm, dry. Absent: intact (As above) Course Vital Signs 11/04/20 11/04/20 11/04/20 12:55 16:26 18:29 Temperature 97.1 F L Pulse Rate 73 82 86 Respiratory 16 16 16 Rate Blood Pressure 139/77 154/90 146/63 O2 Sat by Pulse 99 99 98 Oximetry - Reevaluation(s) Reevaluation #1: 11/04/20 16:58 I did discuss findings with the patient with patient's daughter was present in the patient's been having problems with cognition since around 9:00 this morning until she started around 11:30. She is much improved this time though she does seem to have waxing and waning symptoms at times. Medical Decision Making - Medical Decision Making I did reevaluate the patient and discuss findings with the patient family. Patient will be admitted the presentation is consistent with TIA and dehydration. Patient is now a patient Dr. Torrez with the patient will be admitted to. - Lab Data Result diagrams: 11/04/20 13:14 11/04/20 13:14 Lab Results 11/04/20 11/04/20 11/04/20 Range/Units 13:14 13:14 13:14 WBC 7.0 (3.8-10.6) k/uL RBC 3.59 L (3.80-5.40) m/uL Hgb 12.1 (11.4-16.0) gm/dL Hct 35.8 (34.0-46.0) % MCV 99.6 (80.0-100.0) fL MCH 33.7 (25.0-35.0) pg MCHC 33.8 (31.0-37.0) g/dL RDW 13.4 (11.5-15.5) % Plt Count 248 (150-450) k/uL MPV 7.7 Neutrophils % 76 % Lymphocytes % 14 % Monocytes % 8 % Eosinophils % 1 % Basophils % 0 % Neutrophils # 5.3 (1.3-7.7) k/uL Lymphocytes # 1.0 (1.0-4.8) k/uL Monocytes # 0.6 (0-1.0) k/uL Eosinophils # 0.1 (0-0.7) k/uL Basophils # 0.0 (0-0.2) k/uL PT 10.1 (9.0-12.0) sec INR 0.9 (<1.2) APTT 22.7 (22.0-30.0) sec Sodium (137-145) mmol/L Potassium (3.5-5.1) mmol/L Chloride (98-107) mmol/L Carbon Dioxide (22-30) mmol/L Anion Gap mmol/L BUN (7-17) mg/dL Creatinine (0.52-1.04) mg/dL Est GFR (CKD-EPI)AfAm (>60 ml/min/1.73 sqM) Est GFR (CKD-EPI)NonAf (>60 ml/min/1.73 sqM) Glucose (74-99) mg/dL Calcium (8.4-10.2) mg/dL Total Bilirubin (0.2-1.3) mg/dL AST (14-36) U/L ALT (4-34) U/L Alkaline Phosphatase (38-126) U/L Ammonia (<30) umol/L Creatine Kinase (30-135) U/L Troponin I (0.000-0.034) ng/mL Total Protein (6.3-8.2) g/dL Albumin (3.5-5.0) g/dL Urine Color Yellow Urine Appearance Clear (Clear) Urine pH 5.5 (5.0-8.0) Ur Specific [place] 1.019 (1.001-1.035) Urine Protein Negative (Negative) Urine Glucose (UA) Negative (Negative) Urine Ketones Negative (Negative) Urine Blood Negative (Negative) Urine Nitrite Negative (Negative) Urine Bilirubin Negative (Negative) Urine Urobilinogen <2.0 (<2.0) mg/dL Ur Leukocyte Esterase Negative (Negative) Urine Opiates Screen Not Detected (NotDetected) Ur Oxycodone Screen Not Detected (NotDetected) Urine Methadone Screen Not Detected (NotDetected) Ur Propoxyphene Screen Not Detected (NotDetected) Ur Barbiturates Screen Not Detected (NotDetected) U Tricyclic Antidepress Not Detected (NotDetected) Ur Phencyclidine Scrn Not Detected (NotDetected) Ur Amphetamines Screen Not Detected (NotDetected) U Methamphetamines Scrn Not Detected (NotDetected) U Benzodiazepines Scrn Not Detected (NotDetected) Urine Cocaine Screen Not Detected (NotDetected) U Marijuana (THC) Screen Not Detected (NotDetected) 11/04/20 11/04/20 11/04/20 Range/Units 13:14 13:14 13:14 WBC (3.8-10.6) k/uL RBC (3.80-5.40) m/uL Hgb (11.4-16.0) gm/dL Hct (34.0-46.0) % MCV (80.0-100.0) fL MCH (25.0-35.0) pg MCHC (31.0-37.0) g/dL RDW (11.5-15.5) % Plt Count (150-450) k/uL MPV Neutrophils % % Lymphocytes % % Monocytes % % Eosinophils % % Basophils % % Neutrophils # (1.3-7.7) k/uL Lymphocytes # (1.0-4.8) k/uL Monocytes # (0-1.0) k/uL Eosinophils # (0-0.7) k/uL Basophils # (0-0.2) k/uL PT (9.0-12.0) sec INR (<1.2) APTT (22.0-30.0) sec Sodium 138 (137-145) mmol/L Potassium 4.0 (3.5-5.1) mmol/L Chloride 105 (98-107) mmol/L Carbon Dioxide 27 (22-30) mmol/L Anion Gap 6 mmol/L BUN 29 H (7-17) mg/dL Creatinine 1.18 H (0.52-1.04) mg/dL Est GFR (CKD-EPI)AfAm 48 (>60 ml/min/1.73 sqM) Est GFR (CKD-EPI)NonAf 42 (>60 ml/min/1.73 sqM) Glucose 154 H (74-99) mg/dL Calcium 9.3 (8.4-10.2) mg/dL Total Bilirubin 0.8 (0.2-1.3) mg/dL AST 34 (14-36) U/L ALT 23 (4-34) U/L Alkaline Phosphatase 86 (38-126) U/L Ammonia <9 (<30) umol/L Creatine Kinase 73 (30-135) U/L Troponin I <0.012 (0.000-0.034) ng/mL Total Protein 6.9 (6.3-8.2) g/dL Albumin 4.2 (3.5-5.0) g/dL Urine Color Urine Appearance (Clear) Urine pH (5.0-8.0) Ur Specific [place] (1.001-1.035) Urine Protein (Negative) Urine Glucose (UA) (Negative) Urine Ketones (Negative) Urine Blood (Negative) Urine Nitrite (Negative) Urine Bilirubin (Negative) Urine Urobilinogen (<2.0) mg/dL Ur Leukocyte Esterase (Negative) Urine Opiates Screen (NotDetected) Ur Oxycodone Screen (NotDetected) Urine Methadone Screen (NotDetected) Ur Propoxyphene Screen (NotDetected) Ur Barbiturates Screen (NotDetected) U Tricyclic Antidepress (NotDetected) Ur Phencyclidine Scrn (NotDetected) Ur Amphetamines Screen (NotDetected) U Methamphetamines Scrn (NotDetected) U Benzodiazepines Scrn (NotDetected) Urine Cocaine Screen (NotDetected) U Marijuana (THC) Screen (NotDetected) - EKG Data -: EKG Interpreted by Me EKG Comments: Atrial fibrillation with exodeviation rate 85 QRS 124 QT since QTC 426/506 left exodeviation anteroseptal infarct of undetermined age - Radiology Data Radiology results: report reviewed (Imaging reviewed no acute findings.), image reviewed Disposition Clinical Impression: Altered mental status, TIA (transient ischemic attack), Chronic atrial fibrillation, Dehydration Disposition: ADMITTED IP TO THIS [facility] Condition: Fair Referrals: Cuate Casarez MD [STAFF PHYSICIAN] - 1-2 days
[2020-11-04 13:43] LABS: Basophils % (A) 0 %; Eosinophils # (A) 0.1 k/uL (0-0.7); Eosinophils % (A) 1 %; HCT 35.8 % (34.0-46.0); HGB 12.1 gm/dL (11.4-16.0); Lymphocytes % (A) 14 %; MCH 33.7 pg (25.0-35.0); MCHC 33.8 g/dL (31.0-37.0); MCV 99.6 fL (80.0-100.0); Mean Platelet Volume 7.7; Monocytes # (A) 0.6 k/uL (0-1.0); Monocytes % (A) 8 %; Neutrophils # (A) 5.3 k/uL (1.3-7.7); Neutrophils % (A) 76 %; Platelet Count 248 k/uL (150-450); RBC 3.59 m/uL (3.80-5.40); RDW 13.4 % (11.5-15.5)
--- NOTE | 2020-11-04 13:50 | CT ---
EXAMINATION TYPE: CT brain wo con DATE OF EXAM: 11/04/2020 HISTORY: altered mental status, aphasia CT DLP: 1100.4 mGycm. Automated Exposure Control for Dose Reduction was Utilized. TECHNIQUE: CT scan of the head is performed without contrast. COMPARISON: CT brain May 10, 2019. FINDINGS: There is no acute intracranial hemorrhage or midline shift identified. There is mild-to-m oderate diffuse ventricular and sulcal prominence consistent with diffuse age-related cerebral atroph y. There is [id number] low-attenuation in the periventricular white matter consistent with chr onic small vessel ischemic change. The globes are intact and the visualized sinuses are clear. IMPRESSION: No acute intracranial hemorrhage or midline shift. There is mild to moderate diffuse ce rebral atrophy and chronic small vessel ischemic change redemonstrated. No significant change from pr ior.
[2020-11-04 13:59] LABS: Albumin 4.2 g/dL (3.5-5.0); Calcium 9.3 mg/dL (8.4-10.2); Total Bilirubin 0.8 mg/dL (0.2-1.3); Total Protein 6.9 g/dL (6.3-8.2)
[2020-11-04 14:01] LABS: INR 0.9 (<1.2); Partial Thromboplastin Time 22.7 sec (22.0-30.0); Prothrombin Time 10.1 sec (9.0-12.0)
--- NOTE | 2020-11-04 14:30 | XR ---
EXAMINATION TYPE: XR chest 1V portable DATE OF EXAM: 11/04/2020 COMPARISON: CXR from 01/11/2019. HISTORY: Weakness and confusion. TECHNIQUE: Single AP portable frontal upright view of the chest is obtained. FINDINGS: There a chronic parenchymal changes bilaterally without suspicious new focal air space opa city, pleural effusion, or pneumothorax seen. The cardiac silhouette size remains enlarged with athe rosclerotic aorta. Right paratracheal soft tissue fullness with left-sided tracheal deviation is rede monstrated, probable thyroid goiter. The osseous structures remain demineralized. IMPRESSION: Cardiomegaly and chronic changes without acute pulmonary process.
[2020-11-04 15:27] LABS: Appearance,Urine Clear (Clear); Bilirubin,Urine Negative (Negative); Blood,Urine Negative (Negative); Color,Urine Yellow; Glucose,Urine (UA) Negative (Negative); Ketones,Urine Negative (Negative); Leukocyte Esterase,Urine Negative (Negative); Nitrite,Urine Negative (Negative); PH, Urine 5.5 (5.0-8.0); Protein,Urine Negative (Negative); Specific Gravity,Urine 1.019 (1.001-1.035); Urobilinogen,Urine <2.0 mg/dL (<2.0)
[2020-11-04 15:35] LABS: Amphetamine Screen,Urine Not Detected (NotDetected); Barbiturate Screen,Urine Not Detected (NotDetected); Benzodiazepines Screen,Urine Not Detected (NotDetected); Cocaine Screen,Urine Not Detected (NotDetected); Methadone Screen, Urine Not Detected (NotDetected); Opiate Screen,Urine Not Detected (NotDetected); Oxycodone Screen, Urine Not Detected (NotDetected); Phencyclidine Screen,Urine Not Detected (NotDetected); Tricyclic Antidepressant,Urine Not Detected (NotDetected); Urn Cannabinoid Scrn Not Detected (NotDetected)
[2020-11-04] MEDS: SODIUM CHLORIDE 0.9% 1,000 ML IV SCH (18:29)
[2020-11-04] MEDS: APIXABAN 5 MG TAB PO SCH (21:25)
[2020-11-04] MEDS: amLODIPine 10 MG TAB PO SCH (21:31)
[2020-11-04] MEDS: hydrOXYzine HCL 10 MG TAB PO PRN (23:17)
[2020-11-05] MEDS: VIT A,C & E-LUTEIN-MINERALS 1 EACH TAB PO SCH ×2 (01:28→08:18)
[2020-11-05 05:53] LABS: Appearance,Urine Clear (Clear); Bilirubin,Urine Negative (Negative); Blood,Urine Negative (Negative); Color,Urine Yellow; Glucose,Urine (UA) Negative (Negative); Ketones,Urine 1+ (Negative); Leukocyte Esterase,Urine Negative (Negative); Nitrite,Urine Negative (Negative); Protein,Urine Trace (Negative); Specific Gravity,Urine 1.015 (1.001-1.035); Urobilinogen,Urine <2.0 mg/dL (<2.0)
[2020-11-05] MEDS: SODIUM CHLORIDE 0.9% 1,000 ML IV SCH ×2 (06:21→08:27)
[2020-11-05] MEDS: APIXABAN 5 MG TAB PO SCH ×2 (08:18→21:02)
[2020-11-05] MEDS: CITALOPRAM HYDROBROMIDE 20 MG TAB PO SCH (08:18)
[2020-11-05] MEDS: CALCIUM CARBONATE 500 MG CHEWABLE PO SCH (08:18)
[2020-11-05 09:30] LABS: Chol/HDL Ratio 2.57; LDL Cholesterol,Calculated 81.8 mg/dL (0.0-131.0); VLDL Calculation 20.2 mg/dL (5.00-40.00)
--- NOTE | 2020-11-05 11:49 | P.CNNES ---
History of Present Illness Consult date: 11/05/20 Requesting physician: Juancho Prieto Reason for Consult: TIA History of Present Illness: Patient is a 85-year-old female, who came to the hospital by ambulance yesterday at 12:53 PM. Patient's vital signs on arrival blood pressure 139/77, pulse rate 73, temperature 97.1. Her blood pressure did go up to 180/79 as well. According to EMS flow sheet when they arrived, family has mentioned that patient was experiencing episodes of slurred speech and decreased cognitive abilities over the last 4 days and became worse that morning. Patient was fine last p.m. when she went to bed and in the morning patient was found not acting right. No falls or trauma. Patient not able to follow any basic commands. EMS staff note d that patient was unable to speak any words structure. Patient during transport was noted to have intermittent slurred speech and intermittent left- sided weakness. Patient's blood pressure was 137/71, pulse rate 88, respirations 16 and saturation 97%. Blood sugar 137. Computed tomography scan of the head showed no acute intracranial hemorrhage or midline shift. There is mild to moderate diffuse cerebral atrophy and chronic small vessel ischemic change redemonstrated. No significant change from prior. Chest x-ray showed cardiomegaly and chronic changes without acute pulmonary findings. EKG shows atrial fibrillation with left axis deviation. Anterior septal infarct, age undetermined. Patient currently on Apixaban 2.5 mg twice a day, Lasix 20 mg, amlodipine 10 mg Celexa 40 mg, losartan/HCTZ and donepezil 23 mg at bedtime. Patient's daughter Silvia was present, who provided most of the history. She states that patient was doing fine on Sunday night, 2 days ago when she saw a [employer]. Ms. Vega spoke to her twice on Sunday and she was fine. She went to bed after midnight. Yesterday at 9:30 AM her saw her standing midway on the stairs and she was completely confused, standing, almost froze, not speaking, unable to follow commands, not able to move, saying some random words. It took almost 40 minutes for her and her another daughter who lives with them, to bring her down. Ms. Vega, who lives half an hour away, came over and saw patient had lost control of bowels and bladder at that time. Patient's who is also 88 years of age, had later mentioned that for the previous couple days, patient has been having episodes in which she has brief episodes of confusion in which he cannot understand what she is talking. However these episodes would pass. Ms. Vega also mentioned that while she was in the ER, patient at around 1 PM became completely lucid and was able to provide history, although does not remember how she got there were she was in her right in the ambulance. From 432 6 PM, she had couple more episodes of confusion lasting for 10 minutes. However after 6 PM she had an episode and has been persistent since. Patient perseverates on the word "completely". She may say a few words here and there, otherwise is just stuck on "completely". Patient is having myoclonic jerks, and would often hold her right hand on her chin, where there is a rug burn. Patient does not remember or recall any episodes of falling at all (during the time that she was lucid). Patient's daughter states that the bruise on the chin is related to patient peeling it off with her nails although it does not look like a peeled off skin area from nails, rather than 1 x 1" area of rug burn from a fall. She also has an ecchymosis over the right forearm region, probably from the fall. No sign of trauma on the knees. Patient's daughter also mentions that patient has been having short-term memory loss for the last 18 months, slightly getting worse, although not steadily, just "up-and-down". Patient has atrial fibrillation, currently on Apixaban. She does not miss her doses. Patient has hypertension, no diabetes never smoked. No previous history of strokes. No fever or chills. Patient has not been complaining of any headache lately. No previous history of seizures. No family history of epilepsy. Patient has received a second dose of Covid vaccination on 10/06/2020. Review of Systems ROS unobtainable: due to mental status Past Medical History Past Medical History: Atrial Fibrillation, Cancer, GERD/Reflux, Hypertension, Osteoarthritis (OA), Thyroid Disorder Additional Past Medical History / Comment(s): States irregular heart beat, Varicose Veins, Hx of 3 doses of radioactive iodine for Thyroid tx"for over active thyroid"., HX of a fall 6-2017,"headaches", pancreatitis, sinus infections, past gout, cataracts(sx done), hiatal hernia, uterine cancer >25 years ago(sx only), uti History of Any Multi-Drug Resistant Organisms: None Reported Past Surgical History: Cholecystectomy, Hysterectomy, Joint Replacement, Orthopedic Surgery, Tonsillectomy Additional Past Surgical History / Comment(s): PARTIAL LEFT HIP AND THEN TOTAL LEFT HIP., RIGHT CATARACT ([facility]). cataract BL Past Anesthesia/Blood Transfusion Reactions: No Reported Reaction Past Psychological History: Anxiety Additional Psychological History / Comment(s): pt lives with her pt is independant. no home care services, no medical equipment. Smoking Status: Never smoker Past Alcohol Use History: None Reported Past Drug Use History: None Reported - Past Family History Sister(s) Family Medical History: Cancer Mother Additional Family Medical History / Comment(s): graves disease. comiited suicide in 1941 Father Family Medical History: Myocardial Infarction ([place]) Medications and Allergies Home Medications Medication Instructions Recorded Confirmed Type Citalopram Hydrobromide [CeleXA] 40 mg PO DAILY 12/20/16 11/04/20 History Losartan/Hydrochlorothiazide 1 tab PO DAILY 01/11/19 11/04/20 History [Losartan-Hctz 100-25 mg Tab] amLODIPine [Norvasc] 10 mg PO HS 01/11/19 11/04/20 History Apixaban [Eliquis] 2.5 mg PO BID 11/04/20 11/04/20 History Donepezil Hcl 23mg 23 mg PO HS 11/04/20 11/04/20 History Furosemide [Lasix] 20 mg PO DAILY 11/04/20 11/04/20 History Allergies Allergy/AdvReac Type Severity Reaction Status Date / Time nitrofurantoin Allergy Unknown Itching Verified 11/04/20 18:21 [From Macrobid] rofecoxib [From Vioxx] Allergy Unknown Hypertensio Verified 11/04/20 18:21 n sertraline [From Zoloft] Allergy Unknown Rash/Hives Verified 11/04/20 18:21 shellfish derived [Shellfish] AdvReac Severe Nausea & Verified 11/04/20 18:21 Vomiting, Very Ill. celecoxib [From Celebrex] AdvReac Unknown Loss of Verified 11/04/20 18:21 Balance Physical Examination - Vital Signs Vital Signs: Vital Signs Temp Pulse Pulse Resp BP BP Pulse Ox 11/05/20 08:15 98.2 F 96 16 153/80 96 11/05/20 04:15 97.8 F 89 16 154/79 97 11/05/20 01:58 15 11/05/20 00:31 98.0 F 97 15 180/79 98 11/04/20 21:57 97.7 F 78 16 190/91 97 11/04/20 21:33 97.4 F L 84 18 147/82 98 11/04/20 18:29 86 16 146/63 98 11/04/20 16:26 82 16 154/90 99 11/04/20 12:55 97.1 F L 73 16 139/77 99 Intake and Output 11/04/20 11/05/20 11/05/20 22:59 06:59 14:59 Other: # Voids 0 Weight 95.254 kg 99.5 kg Patient is an elderly female, very pleasant, in no acute distress. Patient is alert awake, has expressive aphasia. Patient is perseverating on " completely". She sometimes say random words which does not make sense. Patient not able to name objects or repeat. When something is presented, she tries to grab it. She has myoclonic jerks of her arms, right more than left, also on the chin, and the tongue. She stutters at times. Attention, concentration and fund of knowledge is limited due to expressive dysphagia. On cranial examination, pupils are round and reacting to light, visual dowell could not be tested, extraocular muscles are intact with no nystagmus. Patient has very mild right facial asymmetry, tongue protrudes to the midline. Palatal elevation and sensation could not be checked, hearing could not be checked and shoulder shrug normal, facial sensation could not be checked. Shoulder shrug normal. On muscle strength testing, there is no definitive pronator drift and the strength is normal in arms. In the lower limbs patient did not cooperate but does move the legs equally bilaterally. Deep tendon reflexes are 1+ and symmetric and plantars are downgoing. Sensory to touch could not be checked. Cerebellar function could not be checked. Tone and bulk of muscles normal. Gait not checked. On general examination, there is no carotid bruit or murmur, S1-S2 audible. Abdomen is soft nontender. Chest is clear. Peripheral pulses are present. No edema. Results - Laboratory Findings CBC and BMP: 11/06/20 07:18 11/06/20 07:18 Abnormal Lab Findings: Abnormal Labs 11/04/20 11/04/20 11/04/20 13:14 13:14 13:14 RBC 3.59 L BUN 29 H Creatinine 1.18 H Glucose 154 H HDL Cholesterol 65.0 H Urine Protein Urine Ketones 11/05/20 05:43 RBC BUN Creatinine Glucose HDL Cholesterol Urine Protein Trace H Urine Ketones 1+ H Assessment and Plan Assessment: * Episodic mental confusion, aphasia, some myoclonic jerks off and on for last 4 days, now has been persistent since 6 PM yesterday. Rule out stroke/TIA, focal seizures or metabolic dysfunction. * History of atrial fibrillation on anticoagulation with Apixaban * Hypertension * Obesity * Mild cognitive impairment Plan: * Patient needs further workup including an MRI of the brain to rule out CVA, MRA of the head to rule out any intracranial arterial stenosis. * Carotid Doppler * Stat EEG to rule out any epileptiform activity. * Further management based upon above test results. * Discussed with patient's daughter in detail. Addendum: MRI was completed. It revealed no acute infarct or intracranial abnormality. Chronic microvascular ischemic change. MRA of the brain revealed no significant abnormality of the MRA head. EEG was performed, which revealed FIRDA, with some triphasic waves and general ized slowing. Carotid Doppler showed no significant stenosis. I reevaluated the patient at around 9 PM. Patient was having worsening of myoclonic jerks, stuttering, perseveration, facial twitching, almost looking like seizures. No metabolic conditions have been identified with the blood or radiographic testing. I will empirically start patient on Keppra 1500 mg IV twice a day. Time with Patient: Greater than 30 (Spent over one hour in counseling, coordinating care with patient's daughter, EEG interpretation)
[2020-11-05] MEDS: LOSARTAN-HCTZ 50-12.5 MG 1 EACH TAB PO SCH (13:50)
--- NOTE | 2020-11-05 14:07 | P.HPIM ---
History of Present Illness H&P Date: 11/05/20 Chief Complaint: Altered mental status This is an 85-year-old female with past medical history of chronic atrial fibrillation, gastroesophageal reflux disease, hypertension, hyperthyroidism, osteoarthritis, and multiple other medical issues admitted with altered mental status. ER reports patient presented with slurred speech, decreased activity, confusion over the last 3-4 days, brought in by EMS. Daughter informed ER that patient's cognition changes have occurred since 0900 this morning. EMS reported some left-sided weakness, left facial asymmetry with borderline hypotension, blood pressure 99/67. Denies trauma or [id number] chin abrasion present. NIH score [address] reported no acute intracranial hemorrhage or midline shift, mild to moderate diffuse cerebral atrophy and chronic small vessel ischemic change redemonstrated, no significant change from prior. Chest x-ray reporting cardiomegaly and chronic changes without acute pulmonary process. EKG reported controlled atrial fibrillation, left axis deviation, anterior septal infarct, age undetermined. Troponin negative 1. Denies chest pain, palpitations. Denies shortness of breath. UA negative. Toxicology screen negative. Review of Systems Review of systems unable to obtain, patient confused with expressive aphasia. Past Medical History Past Medical History: Atrial Fibrillation, Cancer, GERD/Reflux, Hypertension, Osteoarthritis (OA), Thyroid Disorder Additional Past Medical History / Comment(s): States irregular heart beat, Varicose Veins, Hx of 3 doses of radioactive iodine for Thyroid tx"for over active thyroid"., HX of a fall ,"headaches", pancreatitis, sinus in fections, past gout, cataracts(sx done), hiatal hernia, uterine cancer >25 years ago(sx only), uti History of Any Multi-Drug Resistant Organisms: None Reported Past Surgical History: Cholecystectomy, Hysterectomy, Joint Replacement, Orthopedic Surgery, Tonsillectomy Additional Past Surgical History / Comment(s): PARTIAL LEFT HIP AND THEN TOTAL LEFT HIP., RIGHT CATARACT ([facility]). cataract BL Past Anesthesia/Blood Transfusion Reactions: No Reported Reaction Past Psychological History: Anxiety Additional Psychological History / Comment(s): pt lives with her bi. pt is independant. no home care services, no medical equipment. Smoking Status: Never smoker Past Alcohol Use History: None Reported Past Drug Use History: None Reported - Past Family History Sister(s) Family Medical History: Cancer Mother Additional Family Medical History / Comment(s): graves disease. comiited suicide in 1941 Father Family Medical History: Myocardial Infarction ([place]) Medications and Allergies Home Medications Medication Instructions Recorded Confirmed Type Citalopram Hydrobromide [CeleXA] 40 mg PO DAILY 12/20/16 11/04/20 History Losartan/Hydrochlorothiazide 1 tab PO DAILY 01/11/19 11/04/20 History [Losartan-Hctz 100-25 mg Tab] amLODIPine [Norvasc] 10 mg PO HS 01/11/19 11/04/20 History Apixaban [Eliquis] 2.5 mg PO BID 11/04/20 11/04/20 History Donepezil Hcl 23mg 23 mg PO HS 11/04/20 11/04/20 History Furosemide [Lasix] 20 mg PO DAILY 11/04/20 11/04/20 History Allergies Allergy/AdvReac Type Severity Reaction Status Date / Time nitrofurantoin Allergy Unknown Itching Verified 11/04/20 18:21 [From Macrobid] rofecoxib [From Vioxx] Allergy Unknown Hypertensio Verified 11/04/20 18:21 n sertraline [From Zoloft] Allergy Unknown Rash/Hives Verified 11/04/20 18:21 shellfish derived [Shellfish] AdvReac Severe Nausea & Verified 11/04/20 18:21 Vomiting, Very Ill. celecoxib [From Celebrex] AdvReac Unknown Loss of Verified 11/04/20 18:21 Balance Physical Exam Vitals: Vital Signs Temp Pulse Pulse Resp BP BP Pulse Ox 11/05/20 08:15 98.2 F 96 16 153/80 96 11/05/20 04:15 97.8 F 89 16 154/79 97 11/05/20 01:58 15 11/05/20 00:31 98.0 F 97 15 180/79 98 11/04/20 21:57 97.7 F 78 16 190/91 97 11/04/20 21:33 97.4 F L 84 18 147/82 98 11/04/20 18:29 86 16 146/63 98 11/04/20 16:26 82 16 154/90 99 11/04/20 12:55 97.1 F L 73 16 139/77 99 Intake and Output 11/04/20 11/05/2021 22:59 06:59 14:59 Intake Total 400 Balance 400 Intake: Oral 400 Other: Voiding Method Diaper # Voids 0 Weight 95.254 kg 99.5 kg Physical examination: VITAL SIGNS: As above GENERAL: Average built, sitting up in bed, pleasantly confused, expressive aphasia EYES: Pupils equal. Conjunctiva normal. Mild right facial asymmetry HEENT: External appearance of nose and ears normal, oral mucosa dry NECK: Supple, no JVD. HEART: First and second heart sounds are normal; irregular, trace edema. LUNGS: Respiratory rate normal; clear to auscultation. ABDOMEN: Soft, nontender, nondistended, no masses palpable, positive bowel sounds. PSYCH: Alert and oriented x1; pleasantly confused, mild anxiety NEUROLOGICAL: Alert, confused with expressive aphasia present, myoclonic jerks of all extremities, muscle tone appears normal, patient currently unable to follow simple commands-unable to fully evaluate. LYMPHATICS: No lymph nodes palpable in the axilla and neck SKIN: Warm and dry, no rash chin abrasion as mentioned above, Results CBC & Chem 7: 11/04/20 13:14 11/04/20 13:14 Labs: Abnormal Lab Results - Last 24 Hours (Table) 11/04/20 11/04/20 11/04/20 Range/Units 13:14 13:14 13:14 RBC 3.59 L (3.80-5.40) m/uL BUN 29 H (7-17) mg/dL Creatinine 1.18 H (0.52-1.04) mg/dL Glucose 154 H (74-99) mg/dL HDL Cholesterol 65.0 H (40.0-60.0) mg/dL Urine Protein (Negative) Urine Ketones (Negative) 11/05/20 Range/Units 05:43 RBC (3.80-5.40) m/uL BUN (7-17) mg/dL Creatinine (0.52-1.04) mg/dL Glucose (74-99) mg/dL HDL Cholesterol (40.0-60.0) mg/dL Urine Protein Trace H (Negative) Urine Ketones 1+ H (Negative) Assessment and Plan Assessment: Assessment: -Altered mental status, possible CVA, possible TIA, possible seizures -Expressive aphasia -Cognitive impairment, possibly chronic -Dehydration -Chronic renal failure, stage III, at baseline -Chronic atrial fibrillation, anticoagulated on Eliquis. -Hyperthyroidism -GERD -Essential hypertension -Osteoarthritis -Obesity, BMI 35.4 Plan: Continue on current medication regime ,monitoring and symptomatic treatment. Neurology consult in place, neuro workup in progress. Maintain gentle IV fluid hydration. Anticoagulated on Eliquis. PT/OT. Social work consulted, potential subacute rehab at discharge. Speech therapy consulted. The impression and plan of care has been dictated as directed. : I performed a history and examination of this patient, discussed the same with the dictator. I agree with the dictator's note ,documented as a scribe. Any additional findings or plans will be noted. -
[2020-11-05] MEDS ORDERED: LORazepam 2 MG/ML INJ IV STA (16:37)
--- NOTE | 2020-11-05 19:24 | MR ---
MRI OF THE BRAIN WO History: Follow-up stroke. Altered mental status. COMPARISON: CT 11/04/2020 TECHNIQUE: Multiplanar multisequence MR imaging of the brain was obtained without the use of IV cont rast. FINDINGS: No restricted diffusion is noted to suggest acute ischemic infarct.No acute intracranial hemorrhage o r abnormal extra-axial fluid collection are noted.There is no midline shift or mass effect. There is mild to moderate periventricular white matter T2 hyperintensities, in keeping with chronic microvascu lar change. There is mild parenchymal volume loss. Visualized vascular flow voids are unremarkable. Visualized paranasal sinuses and mastoid air cells are patent and aerated. IMPRESSION: No acute infarct or intracranial abnormality. Chronic microvascular ischemic changes.
--- NOTE | 2020-11-05 19:31 | MR ---
EXAMINATION TYPE: MR angio head wo con DATE OF EXAM: 11/05/2020 COMPARISON: None available. HISTORY: AMS, aphasia, evaluate for stroke/seizure/encephalitis. TECHNIQUE: Time of flight images focusing on the [place] were performed without contrast. FINDINGS: The intracranial internal carotid, middle cerebral, posterior cerebral, vertebrobasilar arterial syst em and [place] are grossly unremarkable. No evidence of occlusion, aneurysm, high-grade sten osis or dissection. IMPRESSION: No significant abnormality of the MRA head.
[2020-11-05] MEDS: hydrOXYzine HCL 10 MG TAB PO PRN (19:36)
[2020-11-05] MEDS: levETIRAcetam IV 1,000 MG in SALINE 1 100ML.BAG IVPB SCH (21:12)
[2020-11-05] MEDS: amLODIPine 10 MG TAB PO SCH (21:12)
--- NOTE | 2020-11-05 22:55 | EEG ---
ELECTROENCEPHALOGRAM REPORT DATE OF PROCEDURE: 11/05/2020 ELECTROENCEPHALOGRAM (EEG) REPORT: TECHNIQUE: This is a report from a prolonged 2-1/2-hour inpatient digital video EEG performed using the 10/20 international electrode placement system. HISTORY: TIA, dehydration, slurred speech, confusion, perseveration. FINDINGS: Recording start time: 11/05/2020 at 12:15 pm. Recording end time: 11/05/2020 at 3:48 p.m. EVENTS: During this 2-1/2-hour prolonged video EEG, no clinical or electrographic seizures were recorded. BACKGROUND: Background frequencies consist of poorly modulated 2 to 4 Hz waveforms. ACTIVATION: Hyperventilation: Not performed. Photic stimulation: Not performed. Sleep: Drowsy. ABNORMALITIES: 1. Frequent frontally predominant delta range slowing was seen, consistent with frontal intermittent rhythmic delta activity (FIRDA). 2. Intermixed with the above were frequent triphasic waves. 3. Diffuse 3 to 5 hertz slow wave activity was seen. IMPRESSION: Abnormal prolonged 2-1/2-hour continuous EEG. No clinical or electrographic seizures were recorded. No epileptiform activity was present. The triphasic waves mentioned above are not epileptiform in nature. Triphasic waves can be seen in the setting of a metabolic encephalopathy. The frontally predominant delta range slowing, frontal intermittent rhythmic delta activity as well as the diffuse theta delta range slowing mentioned above are not epileptiform in nature. In combination, these findings indicate severe diffuse cerebral dysfunction as may be seen in a toxometabolic encephalopathy. Please note that portions of the recording were limited by the presence of muscle artifact as well as electrodes coming off. MMODL / IJN: [id number] /
--- NOTE | 2020-11-05 23:15 | US ---
EXAMINATION TYPE: US carotid duplex BILAT DATE OF EXAM: 11/05/2020 COMPARISON: NONE CLINICAL HISTORY: AMS. EXAM MEASUREMENTS: RIGHT: Peak Systolic Velocity (PSV) cm/sec ----- Right CCA: 45.3 ----- Right ICA: 81.7 ----- Right ECA: 82.3 ICA/CCA ratio: 1.8 RIGHT: End Diastole cm/sec ----- Right CCA: 7.5 ----- Right ICA: 16.2 ----- Right ECA: 9.9 LEFT: Peak Systolic Velocity (PSV) cm/sec ----- Left CCA: 42.2 ----- Left ICA: 50.0 ----- Left ECA: 40.9 ICA/CCA ratio: 1.2 LEFT: End Diastole cm/sec ----- Left CCA: 11.6 ----- Left ICA: 9.5 ----- Left ECA: 0.0 VERTEBRALS (direction of flow): Right Vertebral: Antegrade Left Vertebral: unable to visualize due to patient movement Patient uncooperative, technically difficult study. Severe atherosclerotic changes without elevated velocities. IMPRESSION: Exam limited by calcified plaque and shadowing. Lumen is not demonstrated in these areas of dense robert cification. The images and measurements suggest up to 50% stenosis of both internal carotid arteries but because of the shadowing this should not the considered a reliable estimation of the degree of st enosis. There is antegrade flow in the right vertebral artery and we could not show flow in the left vertebra l artery. The exam was limited by patient motion. Criteria for Assigning % of Stenosis / Diameter reduction (Estimation based on the indirect measurements of the internal carotid artery velocities (ICA PSV). 1. Normal (no stenosis)=ICA PSV < 125 cm/s: ratio < 2.0: ICA EDV<40 cm/s. 2. Less than 50% stenosis=ICA PSV < 125 cm/s: ratio < 2.0: ICA EDV<40 cm/s. 3. 50 to 69% stenosis=ICA PSV of 125 to 230 cm/s: ration 2.0 ? 4.0: ICA EDV 40-100 cm/s. 4. Greater than 70% stenosis to near occlusion= ICA PSV > 230 cm/s: ratio > 4.0: ICA EDV > 100 cm/s. 5. Near occlusion= ICA PSV velocities may be low or undetectable: variable ratio and ICA EDV. 6. Total occlusion=unable to detect flow.
[2020-11-06] MEDS: SODIUM CHLORIDE 0.9% 1,000 ML IV SCH ×2 (05:32→09:40)
[2020-11-06 08:26] LABS: Basophils % (A) 1 %; Eosinophils # (A) 0.1 k/uL (0-0.7); Eosinophils % (A) 2 %; HCT 32.6 % (34.0-46.0); HGB 10.7 gm/dL (11.4-16.0); Lymphocytes # (A) 1.2 k/uL (1.0-4.8); Lymphocytes % (A) 25 %; MCH 33.2 pg (25.0-35.0); MCHC 32.9 g/dL (31.0-37.0); MCV 100.8 fL (80.0-100.0); Macrocytosis Slight; Mean Platelet Volume 7.7; Monocytes # (A) 0.4 k/uL (0-1.0); Monocytes % (A) 9 %; Neutrophils # (A) 3.1 k/uL (1.3-7.7); Neutrophils % (A) 63 %; Platelet Count 216 k/uL (150-450); RBC 3.24 m/uL (3.80-5.40)
[2020-11-06 08:40] LABS: Calcium 8.3 mg/dL (8.4-10.2); Potassium 3.5 mmol/L (3.5-5.1)
[2020-11-06] MEDS: levETIRAcetam IV 1,000 MG in SALINE 1 100ML.BAG IVPB SCH ×2 (09:37→20:50)
[2020-11-06] MEDS: APIXABAN 5 MG TAB PO SCH ×2 (09:39→20:07)
[2020-11-06] MEDS: LOSARTAN-HCTZ 50-12.5 MG 1 EACH TAB PO SCH (09:39)
[2020-11-06] MEDS: CALCIUM CARBONATE 500 MG CHEWABLE PO SCH (09:39)
[2020-11-06] MEDS: CITALOPRAM HYDROBROMIDE 20 MG TAB PO SCH (09:39)
[2020-11-06 13:44] LABS: Amorphous Sediment,Urine Rare /hpf; Appearance,Urine Cloudy (Clear); Bacteria,Urine Occasional /hpf; Bilirubin,Urine Negative (Negative); Blood,Urine Trace (Negative); Color,Urine Yellow; Glucose,Urine (UA) Negative (Negative); Ketones,Urine Negative (Negative); Leukocyte Esterase,Urine Large (Negative); Mucus,Urine Occasional /hpf; Nitrite,Urine Negative (Negative); PH, Urine 5.5 (5.0-8.0); Protein,Urine Negative (Negative); RBC,Urine 5 /hpf (0-5); Specific Gravity,Urine 1.011 (1.001-1.035); Squamous Epithelial Cell,Urine <1 /hpf (0-4); Urobilinogen,Urine <2.0 mg/dL (<2.0); WBC,Urine 172 /hpf (0-5)
[2020-11-06 17:28] LABS: Folate, Serum 14.8 ng/mL
--- NOTE | 2020-11-06 17:30 | P.PN ---
Subjective 85-year-old up as an female came in with altered mental status confusion. Workup for stroke patient was also having myoclonic activity all the workup for stroke is negative MRI is negative and MRA and the CT angios of the head and neck were also negative. Patient had EEG which is consistent with toxic metabolic encephalopathy patient the is on antiseizure medication Keppra 500 twice a day for myoclonic activity. Patient is alert oriented 3 daughter is present at the bedside and as per her patient is 75% better. Patient is quite weak may need placement at subacute rehabilitation. Patient usually uses a walker lives with her with the her daughter visiting her often who lives close by. Constitutional: Denied any fatigue denied any fever. Cardio vascular: denied any chest pain, palpitations Gastrointestinal denied any nausea vomiting Pulmonary: Denied any shortness of breath cough Neurologic denied any new focal deficits All inpatient medications were reviewed and appropriate changes in these medications as dictated in the interval history and assessment and plan. Objective - Vital Signs Vital signs: Vital Signs Temp 98.6 F 11/06/20 09:30 Pulse 79 11/06/20 09:30 Resp 16 11/06/20 09:30 BP 142/78 11/06/20 09:30 Pulse Ox 99 11/06/20 09:30 Intake & Output 11/05/20 11/06/20 11/06/20 18:59 06:59 18:59 Intake Total 900 1010 720 Output Total 1050 Balance 900 -40 720 Weight 98 kg Intake: IV 10 Invasive Line 2 10 Intake, IV Titration 1000 Amount Sodium Chloride 0.9% 1, 900 000 ml @ 100 mls/hr IV . Q10H LAURA Rx#:[id number] levETIRAcetam IV 1,000 mg 100 In Saline 1 100ml.bag @ 400 mls/hr IVPB Q12HR LAURA Rx#:[id number] Oral 900 0 720 Output: Urine 1050 Straight 1050 Other: Voiding Method Diaper Diaper Diaper # Voids 1 0 1 # Bowel Movements 1 - Exam PHYSICAL EXAMINATION: GENERAL: The patient is alert and oriented x3, not in any acute distress. Well developed, well nourished. HEENT: Pupils are round and equally reacting to light. EOMI. No scleral icterus. No conjunctival pallor. Normocephalic, atraumatic. No pharyngeal erythema. No thyromegaly. CARDIOVASCULAR: S1 and S2 present. No murmurs, rubs, or gallops. PULMONARY: Chest is clear to auscultation, no wheezing or crackles. ABDOMEN: Soft, nontender, nondistended, normoactive bowel sounds. No palpable organomegaly. MUSCULOSKELETAL: No joint swelling or deformity. EXTREMITIES: No cyanosis, clubbing, or pedal edema. NEUROLOGICAL: Gross neurological examination did not reveal any focal deficits. does have generalized weakness SKIN: No rashes. - Labs CBC & Chem 7: 11/06/20 07:18 11/06/20 07:18 Labs: Abnormal Lab Results - Last 24 Hours (Table) 11/06/20 11/06/20 11/06/20 Range/Units 07:18 07:18 13:15 RBC 3.24 L (3.80-5.40) m/uL Hgb 10.7 L (11.4-16.0) gm/dL Hct 32.6 L (34.0-46.0) % MCV 100.8 H (80.0-100.0) fL Chloride 109 H (98-107) mmol/L Calcium 8.3 L (8.4-10.2) mg/dL Urine Appearance Cloudy H (Clear) Urine Blood Trace H (Negative) Ur Leukocyte Esterase Large H (Negative) Urine WBC 172 H (0-5) /hpf Urine WBC Clumps Moderate H (None) /hpf Amorphous Sediment Rare H (None) /hpf Urine Bacteria Occasional H (None) /hpf Urine Mucus Occasional H (None) /hpf Assessment and Plan Plan: -Altered mental status with myoclonic activity: Most probably secondary to toxic and metabolic encephalopathy patient is on anticholinergic medication which will be discontinued. Patient was worked up for stroke and MRI and rest of the workup for stroke are negative. -Cognitive impairment probably secondary to dementia may be vascular dementia are senile dementia. -Atrial fibrillation chronic A. fib presently rate controlled on anti- correlation with Eliquis which will be continued -Low TSH will obtain T4 levels possibly sick euthyroid syndrome -Gastroesophageal reflux disease -Essential hypertension -Osteoarthritis -Acute renal failure secondary to prerenal azotemia and dehydration, improved with IV fluids
[2020-11-06] MEDS: amLODIPine 10 MG TAB PO SCH (20:07)
[2020-11-06] MEDS: VIT A,C & E-LUTEIN-MINERALS 1 EACH TAB PO SCH (20:07)
--- NOTE | 2020-11-07 02:29 | P.PN ---
Subjective Progress Note Date: 11/06/20 This is a Teleneurology follow-up performed today on 11/06/2020. Patient's daughter was also present today. Patient is doing much better. She has started conversing, much well oriented. No significant myoclonic twitching, perseveration noted. Please refer to examination below. Patient daughter states that she does not drink alcohol. Objective - Vital Signs Vital signs: Vital Signs Temp 98.6 F 11/06/20 09:30 Pulse 79 11/06/20 09:30 Resp 16 11/06/20 09:30 BP 142/78 11/06/20 09:30 Pulse Ox 99 11/06/20 09:30 Intake & Output 11/05/20 11/06/20 11/06/20 18:59 06:59 18:59 Intake Total 900 1010 240 Output Total 1050 Balance 900 -40 240 Weight 98 kg Intake: IV 10 Invasive Line 2 10 Intake, IV Titration 1000 Amount Sodium Chloride 0.9% 1, 900 000 ml @ 100 mls/hr IV . Q10H [facility] Rx#:[id number] levETIRAcetam IV 1,000 mg 100 In Saline 1 100ml.bag @ 400 mls/hr IVPB Q12HR [facility]URA Rx#:[id number] Oral 900 0 240 Output: Urine 1050 Straight 1050 Other: Voiding Method Diaper Diaper # Voids 1 0 # Bowel Movements 1 - Exam Patient knows her name [place]. She knows her date of . Also that she is in [facility]. She states she feels tired today. Patient is able to name objects like a pen, glasses, toothbrush. Speech and language functions appears normal. No aphasia or dysarthria. Her face is symmetric. Pupils are round and reacting. Visual dowell appears full. Tongue protrudes to the midline. Muscle strength is equal in the arms and legs. Gait deferred. - Labs CBC & Chem 7: 11/06/20 07:18 11/06/20 07:18 Labs: Abnormal Lab Results - Last 24 Hours (Table) 11/04/20 11/06/20 11/06/20 Range/Units 13:14 07:18 07:18 RBC 3.24 L (3.80-5.40) m/uL Hgb 10.7 L (11.4-16.0) gm/dL Hct 32.6 L (34.0-46.0) % MCV 100.8 H (80.0-100.0) fL Chloride 109 H (98-107) mmol/L Calcium 8.3 L (8.4-10.2) mg/dL TSH 0.320 L (0.350-5.500) uIU/mL Assessment and Plan Assessment: * Probable seizures manifesting with aphasia, myoclonic twitching, stuttering. Encephalopathy also in the differential. However no metabolic dysfunction identified. No signs of infection. Patient's mentation has remarkably improved with Keppra. Seizure-like activity resolved. * History of atrial fibrillation on anticoagulation with Apixaban * Hypertension * Obesity * Mild cognitive impairment Plan: Patient has remarkably improved. Her mentation has also significantly improved. Seizure-like activity has resolved. Continue Keppra 1500 mg twice a day. MRI Brain revealed no acute infarct or intracranial abnormality. Chronic m icrovascular ischemic change. MRA of the brain revealed no significant abnormality of the MRA head. EEG was performed, which revealed FIRDA, with some triphasic waves and generalized slowing. Carotid Doppler showed no significant stenosis. Discussed with nursing staff and patient's daughter in detail.
[2020-11-07] MEDS: SODIUM CHLORIDE 0.9% 1,000 ML IV SCH ×2 (06:37→15:25)
[2020-11-07] MEDS: APIXABAN 5 MG TAB PO SCH ×2 (09:27→19:53)
[2020-11-07] MEDS: CITALOPRAM HYDROBROMIDE 20 MG TAB PO SCH (09:27)
[2020-11-07] MEDS: CALCIUM CARBONATE 500 MG CHEWABLE PO SCH (09:27)
[2020-11-07] MEDS: LOSARTAN 50 MG TAB PO SCH (09:27)
[2020-11-07] MEDS: levETIRAcetam IV 1,000 MG in SALINE 1 100ML.BAG IVPB SCH (09:28)
[2020-11-07] MEDS ORDERED: POTASSIUM CHLORIDE ER 20 MEQ TAB.ER PO STA (14:13)
--- NOTE | 2020-11-07 14:19 | P.PN ---
Subjective Progress Note Date: 11/07/20 Principal diagnosis: 85-year-old up as an female came in with altered mental status confusion. Workup for stroke patient was also having myoclonic activity all the workup for stroke is negative MRI is negative and MRA and the CT angios of the head and neck were also negative. Patient had EEG which is consistent with toxic metabolic encephalopathy patient the is on antiseizure medication Keppra 500 twice a day for myoclonic activity. Patient is alert oriented 3 daughter is present at the bedside and as per her patient is 75% better. Patient is quite weak may need placement at subacute rehabilitation. Patient usually uses a walker lives with her with the her daughter visiting her often who lives close by. 11/07/2020 Patient seen in follow-up, she is alert sitting up in bed, son at bedside reports he has been conversing with her and appears oriented. No myoclonic twitching noted during exam. Continued on antimicrobial therapy with Rocephin, urine culture pending. No fevers. Potassium level 3.5 being replaced, creatinine 0.9, creatinine 0.9. Constitutional: Denied any fatigue denied any fever. Cardio vascular: denied any chest pain, palpitations Gastrointestinal denied any nausea vomiting Pulmonary: Denied any shortness of breath cough Neurologic denied any new focal deficits All inpatient medications were reviewed and appropriate changes in these medications as dictated in the interval history and assessment and plan. Objective - Vital Signs Vital signs: Vital Signs Temp 98.7 F 11/07/20 12:00 Pulse 82 11/07/20 12:00 Resp 16 11/07/20 13:11 BP 137/63 11/07/20 12:00 Pulse Ox 96 11/07/20 12:00 Intake & Output 11/06/20 11/07/20 11/07/20 18:59 06:59 18:59 Intake Total 1200 540 Output Total 500 1425 700 Balance 700 -1425 -160 Weight 94.5 kg Intake: Oral 1200 540 Output: Urine 500 1425 700 Uretheral ([place]) 500 Other: Voiding Method Diaper Diaper Diaper # Voids 1 # Bowel Movements 1 - Exam PHYSICAL EXAMINATION: GENERAL: The patient is alert and oriented x3, not in any acute distress. Well developed, well nourished. HEENT: Pupils are round and equally reacting to light. EOMI. No scleral icterus. No conjunctival pallor. Normocephalic, atraumatic. No pharyngeal erythema. No thyromegaly. CARDIOVASCULAR: S1 and S2 present. No murmurs, rubs, or gallops. PULMONARY: Chest is clear to auscultation, no wheezing or crackles. ABDOMEN: Soft, nontender, nondistended, normoactive bowel sounds. No palpable organomegaly. MUSCULOSKELETAL: No joint swelling or deformity. EXTREMITIES: No cyanosis, clubbing, or pedal edema. NEUROLOGICAL: A alert and oriented 3, no focal deficits, conversing appropriately SKIN: No rashes. - Labs CBC & Chem 7: 11/06/20 07:18 11/06/20 07:18 Labs: Microbiology - Last 24 Hours (Table) 11/06/20 13:15 Urine Culture - Preliminary Urine,Catheterized Assessment and Plan Assessment: -Altered mental status with myoclonic activity: Most probably secondary to toxic and metabolic encephalopathy on anticholinergic medications at home which have been discontinued., Patient was worked up for stroke and MRI and rest of the workup for stroke are negative. Clinically stable, possible discharge to subacute rehab in the next 24 hours. -Possible UTI: continues empiric antimicrobial therapy with Rocephin, urine culture is pending -Cognitive impairment probably secondary to dementia may be vascular dementia are senile dementia. -Atrial fibrillation chronic A. fib presently rate controlled on anti- correlation with Eliquis which will be continued -Low TSH will obtain T4 levels possibly sick euthyroid syndrome -Gastroesophageal reflux disease -Essential hypertension -Osteoarthritis -Hypokalemia: Replaced with 40 mEq -Acute renal failure secondary to prerenal azotemia and dehydration: Improved
--- NOTE | 2020-11-07 18:16 | P.PN ---
Subjective Progress Note Date: 11/07/20 This is a Teleneurology follow-up performed today on 11/07/2020. Patient is sitting in the recliner. Patient is less a phasic. She is not scratching her chin anymore. Per nursing report, she is not excessively drowsy from Keppra. Overall patient is doing much better. No myoclonic twitching, or perseveration noted. Please refer to examination below. No history of tobacco or alcohol. Objective - Vital Signs Vital signs: Vital Signs Temp 97.6 F 11/07/20 15:16 Pulse 80 11/07/20 15:16 Resp 16 11/07/20 15:16 BP 132/73 11/07/20 15:16 Pulse Ox 99 11/07/20 15:16 Intake & Output 11/06/20 11/07/20 11/07/20 18:59 06:59 18:59 Intake Total 1200 540 Output Total 500 1425 700 Balance 700 -1425 -160 Weight 94.5 kg Intake: Oral 1200 540 Output: Urine 500 1425 700 Uretheral (Bonilla) 500 Other: Voiding Method Diaper Diaper Diaper # Voids 1 # Bowel Movements 1 1 - Exam Patient knows her name [place]. She knows her date of . Patient states that she is in [facility], in [place], [place]. Patient knows it is October 2020 and name of the current president. Patient's speech and language functions appears normal. No perseveration. Muscle strength is 5 in the upper extremities. Hip flexion is 3+4 bilaterally. Ankles are normal. Patient is able to name objects like a pen, glasses. - Labs CBC & Chem 7: 11/06/20 07:18 11/06/20 07:18 Labs: Microbiology - Last 24 Hours (Table) 11/06/20 13:15 Urine Culture - Preliminary Urine,Catheterized Assessment and Plan Assessment: * Probable myoclonic seizures manifesting with aphasia, myoclonic twitching, stuttering. Metabolic encephalopathy also in the differential. However no metabolic dysfunction identified. Patient's initial UA was negative, but repeat urinalysis was abnormal with large amount of leukocyte esterase and 172 WBCs. Patient is on Rocephin. However the urine culture so far negative. Patient's mentation has remarkably improved with Keppra. Seizure-like activity resolved. * History of atrial fibrillation on anticoagulation with Apixaban * Hypertension * Obesity * Mild cognitive impairment Plan: Patient has remarkably improved. Her mentation has also significantly improved. Seizure-like activity has resolved. Continue Keppra 1000 mg twice a day. Will switch to Keppra 1000 mg by mouth twice a day. MRI Brain revealed no acute infarct or intracranial abnormality. Chronic microvascular ischemic change. MRA of the brain revealed no significant abnormality of the MRA head. EEG was performed, which revealed FIRDA, with some triphasic waves and generalized slowing. Carotid Doppler showed no significant stenosis. May need to repeat prolonged EEG to evaluate for any interictal epileptiform activity. B12 653, folate 14.[address] Bry Machado Will resume neurology service from the morning.
[2020-11-07] MEDS: VIT A,C & E-LUTEIN-MINERALS 1 EACH TAB PO SCH (19:53)
[2020-11-07] MEDS: levETIRAcetam 500 MG TAB PO SCH (19:53)
[2020-11-08] MEDS: CITALOPRAM HYDROBROMIDE 20 MG TAB PO SCH (08:31)
[2020-11-08] MEDS: LOSARTAN 50 MG TAB PO SCH (08:31)
[2020-11-08] MEDS: CALCIUM CARBONATE 500 MG CHEWABLE PO SCH (08:31)
[2020-11-08] MEDS: SODIUM CHLORIDE 0.9% 1,000 ML IV SCH ×3 (08:31→20:04)
[2020-11-08] MEDS: APIXABAN 5 MG TAB PO SCH ×2 (08:31→20:03)
[2020-11-08] MEDS: levETIRAcetam 500 MG TAB PO SCH ×2 (08:31→20:03)
[2020-11-08] MEDS ORDERED: ACETAMINOPHEN TAB 500 MG TAB PO PRN (13:34)
--- NOTE | 2020-11-08 18:34 | P.PN ---
Subjective Progress Note Date: 11/08/20 I'm seeing the patient for the first time. Please refer to Dr. Lee's note for details neurological history and assessment and plan. Patient has no further myoclonic twitching. Objective - Vital Signs Vital signs: Vital Signs Temp 97.7 F 11/08/20 08:32 Pulse 57 L 11/08/20 13:53 Resp 17 11/08/20 13:53 BP 146/67 11/08/20 13:53 Pulse Ox 97 11/08/20 13:53 Intake & Output 11/07/20 11/08/20 11/08/20 18:59 06:59 18:59 Intake Total 780 968 Output Total 700 750 550 Balance 80 -750 418 Intake: Intake, IV Titration 850 Amount Sodium Chloride 0.9% 1, 800 000 ml @ 100 mls/hr IV . Q10H LAURA Rx#:[id number] cefTRIAXone 1 gm In 50 Sodium Chloride 0.9% 50 ml @ 100 mls/hr IVPB Q24HR LAURA Rx#:[id number] Oral 780 118 Output: Urine 700 750 550 Other: Voiding Method Diaper Indwelling Catheter Indwelling Catheter # Bowel Movements 1 - Exam GENERAL: The patient is lying in bed and is not in acute distress. NEUROLOGICAL: Higher mental function: The patient is awake, alert, oriented to self and place. She stated the year is 1970 and month is November. She is able to identify objects such as cup and pen. Patient is following commands. No aphasia and no neglect. Cranial nerves: The pupils are round, equal and reactive to light and accommodation. Visual dowell are full to confrontation throughout. Extraocular movement is intact no nystagmus is noted. The facial strength is normal throughout. Tongue is midline and moved [id number] without any difficulty. No dysarthria is noted. Shoulder shrug is normal bilaterally. Motor: Gait is deferred. The strength is 5 over 5 over bilateral upper extremities while hip flexion are 3-4 and distal lowers are 5/5. throughout. Normal tone and bulk. Sensation: Sensation is normal to touch throughout. - Labs CBC & Chem 7: 11/06/20 07:18 11/06/20 07:18 Labs: Microbiology - Last 24 Hours (Table) 11/06/20 13:15 Urine Culture - Preliminary Urine,Catheterized Group D Enterococcus Assessment and Plan Assessment: * Probable myoclonic seizures manifesting with aphasia, myoclonic twitching, stuttering. Metabolic encephalopathy also in the differential. However no metabolic dysfunction identified. Patient's initial UA was negative, but repeat urinalysis was abnormal with large amount of leukocyte esterase and 172 WBCs. Patient is on Rocephin. However the urine culture so far negative. Patient's mentation has remarkably improved with Keppra. Seizure-like activity resolved. * History of atrial fibrillation on anticoagulation with Apixaban * Hypertension * Obesity * Mild cognitive impairment Plan: MRI Brain revealed no acute infarct or intracranial abnormality. Chronic microvascular ischemic change. MRA of the brain revealed no significant abnormality of the MRA head. EEG was performed, which revealed FIRDA, with some triphasic waves and g eneralized slowing. Carotid Doppler showed no significant stenosis. B12 653, folate 14.[address] Lee, patient had remarkably improvement in twitching/seizure-like activity has resolved after Keppra 100mg every 12 hours. And her mentation improved. Recommend prolonged EEG as outpatient. Patient needs to follow-up with Dr. Peter within 1-2 weeks, regarding further seizure management ([facility]. [phone]). There is no further neurological work-up. Please notify neurology if any other concerns. Bry Machado MD Neuro-Hospitalist Time with Patient: Less than 30
[2020-11-08] MEDS: amLODIPine 10 MG TAB PO SCH (20:03)
[2020-11-08] MEDS: VIT A,C & E-LUTEIN-MINERALS 1 EACH TAB PO SCH (20:03)
--- NOTE | 2020-11-08 20:37 | P.PN ---
Subjective Progress Note Date: 11/08/20 Patient seen today is doing better is having a slight headache. She's been up in the chair and to the bathroom she is tolerating food okay Objective - Vital Signs Vital signs: Vital Signs Temp 97.7 F 11/08/20 08:32 Pulse 57 L 11/08/20 13:53 Resp 17 11/08/20 13:53 BP 146/67 11/08/20 13:53 Pulse Ox 97 11/08/20 13:53 Intake & Output 11/08/20 11/08/20 11/09/20 06:59 18:59 06:59 Intake Total 968 118 Output Total 750 550 Balance -750 418 118 Intake: Intake, IV Titration 850 Amount Sodium Chloride 0.9% 1, 800 000 ml @ 100 mls/hr IV . Q10H LAURA Rx#:[id number] cefTRIAXone 1 gm In 50 Sodium Chloride 0.9% 50 ml @ 100 mls/hr IVPB Q24HR LAURA Rx#:[id number] Oral 118 118 Output: Urine 750 550 Other: Voiding Method Indwelling Catheter Indwelling Catheter - Exam GENERAL: The patient is alert and oriented x3, not in any acute distress. Well developed, well nourished. HEENT: Pupils are round and equally reacting to light. EOMI. No scleral icterus. No conjunctival pallor. Normocephalic, atraumatic. No pharyngeal erythema. No thyromegaly. CARDIOVASCULAR: S1 and S2 present. No murmurs, rubs, or gallops. PULMONARY: Chest is clear to auscultation, no wheezing or crackles. ABDOMEN: Soft, nontender, nondistended, normoactive bowel sounds. No palpable organomegaly. MUSCULOSKELETAL: No joint swelling or deformity. EXTREMITIES: No cyanosis, clubbing, or pedal edema. NEUROLOGICAL: Gross neurological examination did not reveal any focal deficits. does have generalized weakness SKIN: No rashes. - Labs CBC & Chem 7: 11/06/20 07:18 11/06/20 07:18 Labs: Microbiology - Last 24 Hours (Table) 11/06/20 13:15 Urine Culture - Preliminary Urine,Catheterized Group D Enterococcus Assessment and Plan (1) Seizure disorder Current Visit: Yes Status: Acute Code(s): G40.909 - EPILEPSY, UNSP, NOT INTRACTABLE, WITHOUT STATUS EPILEPTICUS SNOMED Code(s): 881247638 (2) Altered mental status Current Visit: Yes Status: Acute Code(s): R41.82 - ALTERED MENTAL STATUS, UNSPECIFIED SNOMED Code(s): 954472646 (3) Chronic atrial fibrillation Current Visit: Yes Status: Acute Code(s): I48.20 - CHRONIC ATRIAL FIBRILLATION, UNSPECIFIED SNOMED Code(s): 862635856 (4) Dehydration Current Visit: Yes Status: Acute Code(s): E86.0 - DEHYDRATION SNOMED Code(s): 97259066 (5) TIA (transient ischemic attack) Current Visit: Yes Status: Acute Code(s): G45.9 - TRANSIENT CEREBRAL ISCHEMIC ATTACK, UNSPECIFIED SNOMED Code(s): 845607529 Plan: Patient is currently on Keppra doing better mentally she is having slight headache today so I will watch her and plan for discharge in the morning
[2020-11-09] MEDS: SODIUM CHLORIDE 0.9% 1,000 ML IV SCH (06:24)
[2020-11-09 06:58] LABS: Methylmalonic Acid 0.24 umol/L (<0.40)
[2020-11-09] MEDS: levETIRAcetam 500 MG TAB PO SCH (09:08)
[2020-11-09] MEDS: LOSARTAN 50 MG TAB PO SCH (09:09)
[2020-11-09] MEDS: APIXABAN 5 MG TAB PO SCH (09:09)
[2020-11-09] MEDS: CALCIUM CARBONATE 500 MG CHEWABLE PO SCH (09:09)
[2020-11-09] MEDS: CITALOPRAM HYDROBROMIDE 20 MG TAB PO SCH (09:09)
[2020-11-09 09:12] VITALS: BP 133/74; PULSE 76; RESP 16; TEMP 98.1
--- NOTE | 2020-11-09 09:38 | P.DS ---
Providers Date of admission: 11/04/20 17:29 Expected date of discharge: 11/09/20 Attending physician: Yrn Torrez Consults: 11/04/20 17:30 Consult Physician Routine Consulting Provider: Miriam Lee Consult Reason/Comments: TIA Do you want consulting provider notified?: Yes Primary care physician: Yrn Torrez [facility] Course: Final Diagnoses: (1) Seizure disorder, improved with Keppra Current Visit: Yes Status: Acute Code(s): G40.909 - EPILEPSY, UNSP, NOT INTRACTABLE, WITHOUT STATUS EPILEPTICUS SNOMED Code(s): 762290359 (2) Altered mental status, Current Visit: Yes Status: Acute Code(s): R41.82 - ALTERED MENTAL STATUS, UNSPECIFIED SNOMED Code(s): 218477130 (3) Chronic atrial fibrillation Current Visit: Yes Status: Acute Code(s): I48.20 - CHRONIC ATRIAL FIBRILLATION, UNSPECIFIED SNOMED Code(s): 400204026 (4) Dehydration Current Visit: Yes Status: Acute Code(s): E86.0 - DEHYDRATION SNOMED Co de(s): 18810135 (5) TIA (transient ischemic attack) Current Visit: Yes Status: Acute Code(s): G45.9 - TRANSIENT CEREBRAL ISCHEMIC ATTACK, UNSPECIFIED SNOMED Code(s): 411838173 (6) acute UTI with enterococcus faecalis (7) gastroesophageal reflux disease (8) chronic renal failure, stage III, at baseline (9) obesity, BMI 32.6 (10) essential hypertension Hospital course:This is an 85-year-old female with past medical history of chronic atrial fibrillation, gastroesophageal reflux disease, hypertension, hyperthyroidism, osteoarthritis, and multiple other medical issues admitted with altered mental status. ER reports patient presented with slurred speech, decreased activity, confusion over the last 3-4 days, brought in by EMS. Daughter informed ER that patient's cognition changes have occurred since 0900 this morning. EMS reported some left-sided weakness, left facial asymmetry with borderline hypotension, blood pressure 99/67. Denies trauma or [id number] chin abrasion present. NIH score [address] reported no acute intracranial hemorrhage or midline shift, mild to moderate diffuse cerebral atrophy and chronic small vessel ischemic change redemonstrated, no significant change from prior. Chest x-ray reporting cardiomegaly and chronic changes without acute pulmonary process. EKG reported controlled atrial fibrillation, left axis deviation, anterior septal infarct, age undetermined. Troponin negative 1. Denies chest pain, palpitations. Denies shortness of breath. UA negative. Toxicology screen negative. Evaluated by neurology with neuro workup completed;MRI was completed. It revealed no acute infarct or intracranial abnormality. Chronic microvascular ischemic change.MRA of the brain revealed no significant abnormality of the MRA head.EEG was performed, which revealed FIRDA, with some triphasic waves and generalized slowing.Carotid Doppler showed no significant stenosis. Recommending prolonged EEG as outpatient-with further seizure management as per Dr. Peter. Significant clinical improvement. Denies chest pain, palpitations or shortness of breath. Denies lightheadedness, dizziness or focal deficits. Patient will be discharged to [facility] subacute rehab in a stable condition with guarded prognosis. Microbiology 11/06/20 13:15 Urine,Catheterized Urine Culture - Final Enterococcus faecalis The impression and plan of care has been dictated as directed. : I performed a history and examination of this patient, discussed the same with the dictator. I agree with the dictator's note ,documented as a scribe. Any additional findings or plans will be noted. Patient Condition at Discharge: Stable Plan - Discharge Summary Discharge Rx Participant: No New Discharge Prescriptions: New Vit A,C & N-Zmytwm-Zwulexwy [Ivite] 1 each PO HS tab levETIRAcetam [Keppra] 1,000 mg PO Q12HR tab Acetaminophen Tab [Tylenol] 500 mg PO Q6HR PRN tab PRN Reason: Fever and/ or Mild Pain Linezolid [Zyvox] 600 mg PO Q12H 5 Days #10 tab Pantoprazole Sodium [Protonix] 40 mg PO DAILY #14 tablet.dr Continue Losartan/Hydrochlorothiazide [Losartan-Hctz 100-25 mg Tab] 1 tab PO DAILY amLODIPine [Norvasc] 10 mg PO HS Furosemide [Lasix] 20 mg PO DAILY Donepezil Hcl 23mg 23 mg PO HS Apixaban [Eliquis] 2.5 mg PO BID Discharge Medication List Losartan/Hydrochlorothiazide [Losartan-Hctz 100-25 mg Tab] 1 tab PO DAILY 01/11/19 [History] amLODIPine [Norvasc] 10 mg PO HS 01/11/19 [History] Apixaban [Eliquis] 2.5 mg PO BID 11/04/20 [History] Donepezil Hcl 23mg 23 mg PO HS 11/04/20 [History] Furosemide [Lasix] 20 mg PO DAILY 11/04/20 [History] Acetaminophen Tab [Tylenol] 500 mg PO Q6HR PRN tab 11/09/20 [Rx] Linezolid [Zyvox] 600 mg PO Q12H 5 Days #10 tab 11/09/20 [Rx] Pantoprazole Sodium [Protonix] 40 mg PO DAILY #14 tablet. 11/09/20 [Rx] Vit A,C & R-Yfbfiq-Belsjqcs [Ivite] 1 each PO HS tab 11/09/20 [Rx] levETIRAcetam [Keppra] 1,000 mg PO Q12HR tab 11/09/20 [Rx] Follow up Appointment(s)/Referral(s): Yrn Torrez DO [Primary Care Provider] - 1 Week (after dc from subacute rehab ) Stephen Peter MD [STAFF PHYSICIAN] - 1 Week (Prolonged EEG OP, further seizure management) Activity/Diet/Wound Care/Special Instructions: Frederic QUICK CBC,BMP in 3 days
== END 2020-11-09 13:30 | DRG 69 ==
LOC: EC 12:53 → 3SCARD 17:29
PROVIDERS: ADMIT Family Medicine; ATTEND Family Medicine
DX: G45.9 Transient cerebral ischemic attack, unspecified (principal); G92 Toxic encephalopathy; I48.20 Chronic atrial fibrillation, unspecified; N39.0 Urinary tract infection, site not specified; R47.01 Aphasia; N17.9 Acute kidney failure, unspecified; G40.909 Epilepsy, unspecified, not intractable, without status epilepticus; E86.0 Dehydration; I13.10 Hypertensive heart and chronic kidney disease without heart failure, with stage 1 through stage 4 chronic kidney disease, or unspecified chronic kidney disease; I95.9 Hypotension, unspecified; N18.30 Chronic kidney disease, stage 3 unspecified; Z20.822 Contact with and (suspected) exposure to COVID-19; B95.2 Enterococcus as the cause of diseases classified elsewhere; T44.3X5A Adverse effect of other parasympatholytics [anticholinergics and antimuscarinics] and spasmolytics, initial encounter; E07.81 Sick-euthyroid syndrome; E66.9 Obesity, unspecified; K21.9 Gastro-esophageal reflux disease without esophagitis; K44.9 Diaphragmatic hernia without obstruction or gangrene; S00.81XA Abrasion of other part of head, initial encounter; M19.90 Unspecified osteoarthritis, unspecified site; I83.90 Asymptomatic varicose veins of unspecified lower extremity; E87.6 Hypokalemia; G31.84 Mild cognitive impairment of uncertain or unknown etiology; F41.9 Anxiety disorder, unspecified; Z68.35 Body mass index [BMI] 35.0-35.9, adult; Z79.01 Long term (current) use of anticoagulants; Z79.899 Other long term (current) drug therapy; Z90.710 Acquired absence of both cervix and uterus; Z85.42 Personal history of malignant neoplasm of other parts of uterus; Z90.89 Acquired absence of other organs; Z87.39 Personal history of other diseases of the musculoskeletal system and connective tissue; Z96.642 Presence of left artificial hip joint; Z90.49 Acquired absence of other specified parts of digestive tract; Z98.41 Cataract extraction status, right eye; Z87.19 Personal history of other diseases of the digestive system; Z98.890 Other specified postprocedural states; Z88.8 Allergy status to other drugs, medicaments and biological substances; Z88.6 Allergy status to analgesic agent; Z88.1 Allergy status to other antibiotic agents; Z91.013 Allergy to seafood; Z83.49 Family history of other endocrine, nutritional and metabolic diseases; Z81.8 Family history of other mental and behavioral disorders; Z82.49 Family history of ischemic heart disease and other diseases of the circulatory system
CPT/HCPCS: 36415; 70450; 70544; 70551; 71045; 80048; 80053; 80061; 80306; 81001; 81003; 82140; 82550; 82607; 82746; 83921; 84207; 84425; 84439; 84443; 84484; 85025; 85610; 85730; 87077; 87086; 87186; 87635; 93005; 93880; 95713; 96360; 96361; 99285

== ENCOUNTER 2020-12-03 16:31 | Inpatient (IN) | payer MEDICARE ==
[2020-12-03] MEDS ORDERED: SODIUM CHLORIDE 0.9% 1,000 ML IV ONE (17:17)
--- NOTE | 2020-12-03 17:21 | ED ---
General Adult HPI - General Chief complaint: Altered Mental Status Stated complaint: Drowsiness Time Seen by Provider: 12/03/20 16:35 Source: patient, family, RN notes reviewed Mode of arrival: EMS Limitations: altered mental status, physical limitation - History of Present Illness Initial comments: Patient is a pleasant 85-year-old female presenting to the emergency department drowsiness. Patient is a poor historian. Daughter provides majority of h istory. Patient is unclear why she is really here. Daughter states patient did have somewhat similar episode several weeks ago. Patient does have waxing and waning mental status however has been more fatigued and drowsy recently. Patient reportedly had at least one episode of diarrhea today. Patient states she did have some abdominal discomfort earlier. No isolated area of weakness. Daughter states she has noticed some increased confusion since patient was started on Keppra 3 weeks ago. - Related Data Home Medications Medication Instructions Recorded Confirmed Losartan/Hydrochlorothiazide 1 tab PO DAILY 01/11/19 11/04/20 [Losartan-Hctz 100-25 mg Tab] amLODIPine [Norvasc] 10 mg PO HS 01/11/19 11/04/20 Apixaban [Eliquis] 2.5 mg PO BID 11/04/20 11/04/20 Donepezil Hcl 23mg 23 mg PO HS 11/04/20 11/04/20 Furosemide [Lasix] 20 mg PO DAILY 11/04/20 11/04/20 Previous Rx's Medication Instructions Recorded Acetaminophen Tab [Tylenol] 500 mg PO Q6HR PRN tab 11/09/20 Linezolid [Zyvox] 600 mg PO Q12H 5 Days #10 tab 11/09/20 Pantoprazole Sodium [Protonix] 40 mg PO DAILY #14 tablet. 11/09/20 Vit A,C & Y-Qkewds-Afiykndu [Ivite] 1 each PO HS tab 11/09/20 levETIRAcetam [Keppra] 1,000 mg PO Q12HR tab 11/09/20 Allergies Allergy/AdvReac Type Severity Reaction Status Date / Time nitrofurantoin Allergy Unknown Itching Verified 11/04/20 18:21 [From Macrobid] rofecoxib [From Vioxx] Allergy Unknown Hypertensio Verified 11/04/20 18:21 n sertraline [From Zoloft] Allergy Unknown Rash/Hives Verified 11/04/20 18:21 shellfish derived [Shellfish] AdvReac Severe Nausea & Verified 11/04/20 18:21 Vomiting, Very Ill. celecoxib [From Celebrex] AdvReac Unknown Loss of Verified 11/04/20 18:21 Balance Review of Systems ROS Statement: Those systems with pertinent positive or pertinent negative responses have been documented in the HPI. ROS Other: All systems not noted in ROS Statement are negative. Constitutional: Denies: fever Eyes: Denies: eye pain ENT: Denies: ear pain Respiratory: Denies: cough Cardiovascular: Denies: chest pain Endocrine: Reports: fatigue Gastrointestinal: Reports: as per HPI, diarrhea Genitourinary: Denies: urgency Musculoskeletal: Denies: back pain Skin: Denies: rash Neurological: Reports: as per HPI, confusion Past Medical History Past Medical History: Atrial Fibrillation, Cancer, GERD/Reflux, Hypertension, Osteoarthritis (OA), Thyroid Disorder Additional Past Medical History / Comment(s): States irregular heart beat, Varicose Veins, Hx of 3 doses of radioactive iodine for Thyroid tx"for over active thyroid"., HX of a fall ,"headaches", pancreatitis, sinus infections, past gout, cataracts(sx done), hiatal hernia, uterine cancer >25 years ago(sx only), uti History of Any Multi-Drug Resistant Organisms: None Reported Past Surgical History: Cholecystectomy, Hysterectomy, Joint Replacement, Orthopedic Surgery, Tonsillectomy Additional Past Surgical History / Comment(s): PARTIAL LEFT HIP AND THEN TOTAL LEFT HIP., RIGHT CATARACT ([facility]). cataract BL Past Anesthesia/Blood Transfusion Reactions: No Reported Reaction Past Psychological History: Anxiety Smoking Status: Never smoker Past Alcohol Use History: None Reported Past Drug Use History: None Reported - Past Family History Sister(s) Family Medical History: Cancer Mother Additional Family Medical History / Comment(s): graves disease. comiited suicide in 1941 Father Family Medical History: Myocardial Infarction (DC) General Exam Limitations: no limitations General appearance: alert, in no apparent distress Head exam: Present: normocephalic Eye exam: Present: normal appearance, PERRL ENT exam: Present: normal oropharynx Neck exam: Present: normal inspection Respiratory exam: Present: normal lung sounds bilaterally Cardiovascular Exam: Present: regular rate, normal rhythm GI/Abdominal exam: Present: soft. Absent: tenderness Neurological exam: Present: alert, CN II-XII intact. Absent: motor sensory deficit Expanded Eye Response: (4) open spontaneously Motor Response: (6) obeys commands Verbal Response: (4) confused conversation Psychiatric exam: Present: flat affect Skin exam: Present: normal color Course Vital Signs 12/03/20 12/03/20 12/03/20 16:34 16:53 19:00 Temperature 97.3 F L Pulse Rate 61 70 68 Respiratory 18 18 18 Rate Blood Pressure 96/49 93/56 100/58 O2 Sat by Pulse 97 99 97 Oximetry EKG Findings - EKG Comments: EKG Findings:: H a fibrillation with a rate of 65. QRS 1:30. QTC 500. QTc 520. Left axis. Nonspecific intraventricular block. Q waves V1 and V2. Medical Decision Making - Medical Decision Making Patient reevaluated and unchanged. Patient and family updated on results and plan. Case was discussed with Dr. Cobian, covering for Dr. Torrez, who will admit. - Lab Data Result diagrams: 12/03/20 17:20 12/03/20 17:20 Lab Results 12/03/20 12/03/20 12/03/20 Range/Units 17:20 17:20 17:20 WBC 5.1 (3.8-10.6) k/uL RBC 3.77 L (3.80-5.40) m/uL Hgb 12.2 (11.4-16.0) gm/dL Hct 36.9 (34.0-46.0) % MCV 98.1 (80.0-100.0) fL MCH 32.4 (25.0-35.0) pg MCHC 33.0 (31.0-37.0) g/dL RDW 12.9 (11.5-15.5) % Plt Count 216 (150-450) k/uL MPV 8.4 Neutrophils % 82 % Lymphocytes % 11 % Monocytes % 5 % Eosinophils % 1 % Basophils % 1 % Neutrophils # 4.1 (1.3-7.7) k/uL Lymphocytes # 0.6 L (1.0-4.8) k/uL Monocytes # 0.2 (0-1.0) k/uL Eosinophils # 0.1 (0-0.7) k/uL Basophils # 0.0 (0-0.2) k/uL PT 10.8 (9.0-12.0) sec INR 1.0 (<1.2) APTT 22.0 (22.0-30.0) sec Sodium (137-145) mmol/L Potassium (3.5-5.1) mmol/L Chloride (98-107) mmol/L Carbon Dioxide (22-30) mmol/L Anion Gap mmol/L BUN (7-17) mg/dL Creatinine (0.52-1.04) mg/dL Est GFR (CKD-EPI)AfAm (>60 ml/min/1.73 sqM) Est GFR (CKD-EPI)NonAf (>60 ml/min/1.73 sqM) Glucose (74-99) mg/dL POC Glucose (mg/dL) (75-99) mg/dL POC Glu Planting Machine Crewman ID Calcium (8.4-10.2) mg/dL Total Bilirubin (0.2-1.3) mg/dL AST (14-36) U/L ALT (4-34) U/L Alkaline Phosphatase (38-126) U/L Creatine Kinase (30-135) U/L Troponin I (0.000-0.034) ng/mL Total Protein (6.3-8.2) g/dL Albumin (3.5-5.0) g/dL Urine Color Yellow Urine Appearance Cloudy H (Clear) Urine pH 5.0 (5.0-8.0) Ur Specific Yeso 1.014 (1.001-1.035) Urine Protein Trace H (Negative) Urine Glucose (UA) Negative (Negative) Urine Ketones Negative (Negative) Urine Blood Trace H (Negative) Urine Nitrite Positive H (Negative) Urine Bilirubin Negative (Negative) Urine Urobilinogen <2.0 (<2.0) mg/dL Ur Leukocyte Esterase Large H (Negative) Urine RBC 6 H (0-5) /hpf Urine WBC >182 H (0-5) /hpf Urine WBC Clumps Many H (None) /hpf Urine Bacteria Moderate H (None) /hpf Hyaline Casts 9 H (0-2) /lpf Urine Mucus Rare H (None) /hpf Urine Opiates Screen Not Detected (NotDetected) Ur Oxycodone Screen Not Detected (NotDetected) Urine Methadone Screen Not Detected (NotDetected) Ur Propoxyphene Screen Not Detected (NotDetected) Ur Barbiturates Screen Not Detected (NotDetected) U Tricyclic Antidepress Not Detected (NotDetected) Ur Phencyclidine Scrn Not Detected (NotDetected) Ur Amphetamines Screen Not Detected (NotDetected) U Methamphetamines Scrn Not Detected (NotDetected) U Benzodiazepines Scrn Not Detected (NotDetected) Urine Cocaine Screen Not Detected (NotDetected) U Marijuana (THC) Screen Not Detected (NotDetected) 12/03/20 12/03/20 12/03/20 Range/Units 17:20 17:20 17:54 WBC (3.8-10.6) k/uL RBC (3.80-5.40) m/uL Hgb (11.4-16.0) gm/dL Hct (34.0-46.0) % MCV (80.0-100.0) fL MCH (25.0-35.0) pg MCHC (31.0-37.0) g/dL RDW (11.5-15.5) % Plt Count (150-450) k/uL MPV Neutrophils % % Lymphocytes % % Monocytes % % Eosinophils % % Basophils % % Neutrophils # (1.3-7.7) k/uL Lymphocytes # (1.0-4.8) k/uL Monocytes # (0-1.0) k/uL Eosinophils # (0-0.7) k/uL Basophils # (0-0.2) k/uL PT (9.0-12.0) sec INR (<1.2) APTT (22.0-30.0) sec Sodium 139 (137-145) mmol/L Potassium 3.4 L (3.5-5.1) mmol/L Chloride 103 (98-107) mmol/L Carbon Dioxide 27 (22-30) mmol/L Anion Gap 9 mmol/L BUN 28 H (7-17) mg/dL Creatinine 1.33 H (0.52-1.04) mg/dL Est GFR (CKD-EPI)AfAm 42 (>60 ml/min/1.73 sqM) Est GFR (CKD-EPI)NonAf 36 (>60 ml/min/1.73 sqM) Glucose 221 H (74-99) mg/dL POC Glucose (mg/dL) 250 H (75-99) mg/dL POC Glu Planting Machine Crewman ID Coco Bhatia Calcium 8.8 (8.4-10.2) mg/dL Total Bilirubin 0.3 (0.2-1.3) mg/dL AST 26 (14-36) U/L ALT 14 (4-34) U/L Alkaline Phosphatase 73 (38-126) U/L Creatine Kinase 33 (30-135) U/L Troponin I 0.013 (0.000-0.034) ng/mL Total Protein 6.1 L (6.3-8.2) g/dL Albumin 3.6 (3.5-5.0) g/dL Urine Color Urine Appearance (Clear) Urine pH (5.0-8.0) Ur Specific Yeso (1.001-1.035) Urine Protein (Negative) Urine Glucose (UA) (Negative) Urine Ketones (Negative) Urine Blood (Negative) Urine Nitrite (Negative) Urine Bilirubin (Negative) Urine Urobilinogen (<2.0) mg/dL Ur Leukocyte Esterase (Negative) Urine RBC (0-5) /hpf Urine WBC (0-5) /hpf Urine WBC Clumps (None) /hpf Urine Bacteria (None) /hpf Hyaline Casts (0-2) /lpf Urine Mucus (None) /hpf Urine Opiates Screen (NotDetected) Ur Oxycodone Screen (NotDetected) Urine Methadone Screen (NotDetected) Ur Propoxyphene Screen (NotDetected) Ur Barbiturates Screen (NotDetected) U Tricyclic Antidepress (NotDetected) Ur Phencyclidine Scrn (NotDetected) Ur Amphetamines Screen (NotDetected) U Methamphetamines Scrn (NotDetected) U Benzodiazepines Scrn (NotDetected) Urine Cocaine Screen (NotDetected) U Marijuana (THC) Screen (NotDetected) - Radiology Data Radiology results: report reviewed (Computed tomography scan of the brain shows atrophy. No acute intercranial abnormality.), image reviewed (Two-view chest x- ray shows no acute process. 1 view abdominal x-ray shows nonacute abdomen. Cholelithiasis, no change) Disposition Clinical Impression: Altered mental status, UTI (urinary tract infection) Disposition: ADMITTED IP TO THIS HOSP Is patient prescribed a controlled substance at d/c from ED?: No Referrals: Yrn Torrez DO [Primary Care Provider] - 1-2 days Decision Time: 19:56
[2020-12-03 17:39] LABS: Basophils % (A) 1 %; Eosinophils # (A) 0.1 k/uL (0-0.7); Eosinophils % (A) 1 %; HCT 36.9 % (34.0-46.0); HGB 12.2 gm/dL (11.4-16.0); Lymphocytes # (A) 0.6 k/uL (1.0-4.8); Lymphocytes % (A) 11 %; MCH 32.4 pg (25.0-35.0); MCV 98.1 fL (80.0-100.0); Mean Platelet Volume 8.4; Monocytes # (A) 0.2 k/uL (0-1.0); Monocytes % (A) 5 %; Neutrophils # (A) 4.1 k/uL (1.3-7.7); Neutrophils % (A) 82 %; Platelet Count 216 k/uL (150-450); RBC 3.77 m/uL (3.80-5.40); RDW 12.9 % (11.5-15.5); WBC 5.1 k/uL (3.8-10.6)
[2020-12-03 17:47] LABS: Albumin 3.6 g/dL (3.5-5.0); Calcium 8.8 mg/dL (8.4-10.2); Potassium 3.4 mmol/L (3.5-5.1); Total Bilirubin 0.3 mg/dL (0.2-1.3); Total Protein 6.1 g/dL (6.3-8.2)
[2020-12-03 17:50] LABS: Prothrombin Time 10.8 sec (9.0-12.0)
[2020-12-03 17:56] LABS: Glucose,Whole Blood 250 mg/dL (75-99)
--- NOTE | 2020-12-03 18:16 | XR ---
EXAMINATION TYPE: XR abdomen 1V DATE OF EXAM: 12/03/2020 COMPARISON: 01/11/2019 HISTORY: Altered mental status TECHNIQUE: 2 views supine FINDINGS: There is 2 similar rounded calcification over the right upper quadrant consistent with calc ified gallstone. There is no sign of intestinal obstruction or pneumoperitoneum. Fecal pattern is nor mal. There is left hip prosthesis. There is no evidence of a mass. Lung bases are clear. IMPRESSION: Nonacute abdomen. Cholelithiasis. No change.
--- NOTE | 2020-12-03 18:19 | XR ---
EXAMINATION TYPE: XR chest 2V DATE OF EXAM: 12/03/2020 COMPARISON: 11/04/2020 HISTORY: Altered mental status TECHNIQUE: 2 views FINDINGS: There is no heart failure nor confluent pneumonic infiltrate. There are no hilar masses. Co stophrenic angles are clear. There are chest leads. There is some tracheal deviation to the left side with increased right paratracheal density. This is also present on old exam of 09/21/2017 and could re late to retrosternal goiter or tortuous great vessels. IMPRESSION: No active cardiopulmonary disease. No change.
--- NOTE | 2020-12-03 18:21 | CT ---
EXAMINATION TYPE: CT brain wo con DATE OF EXAM: 12/03/2020 COMPARISON: 11/04/2020 HISTORY: Altered mental status. CT DLP: 1290.4 mGycm Automated exposure control for dose reduction was used. There is cerebral cortical atrophy. There is no mass effect nor midline shift. There is no sign of in tracranial hemorrhage. The calvarium is intact skull base is intact IMPRESSION: Cerebral atrophy. No acute intracranial abnormality. No change.
[2020-12-03 19:48] LABS: Amphetamine Screen,Urine Not Detected (NotDetected); Appearance,Urine Cloudy (Clear); Bacteria,Urine Moderate /hpf; Barbiturate Screen,Urine Not Detected (NotDetected); Benzodiazepines Screen,Urine Not Detected (NotDetected); Bilirubin,Urine Negative (Negative); Blood,Urine Trace (Negative); Cocaine Screen,Urine Not Detected (NotDetected); Color,Urine Yellow; Glucose,Urine (UA) Negative (Negative); Hyaline Casts,Urine 9 /lpf (0-2); Ketones,Urine Negative (Negative); Leukocyte Esterase,Urine Large (Negative); Methadone Screen, Urine Not Detected (NotDetected); Mucus,Urine Rare /hpf; Nitrite,Urine Positive (Negative); Opiate Screen,Urine Not Detected (NotDetected); Oxycodone Screen, Urine Not Detected (NotDetected); Phencyclidine Screen,Urine Not Detected (NotDetected); Protein,Urine Trace (Negative); RBC,Urine 6 /hpf (0-5); Specific Gravity,Urine 1.014 (1.001-1.035); Tricyclic Antidepressant,Urine Not Detected (NotDetected); Urn Cannabinoid Scrn Not Detected (NotDetected); Urobilinogen,Urine <2.0 mg/dL (<2.0); WBC,Urine >182 /hpf (0-5)
[2020-12-03] MEDS ORDERED: NALOXONE 0.4 MG/ML 1 ML VIAL IV PRN (19:56)
[2020-12-03] MEDS: SODIUM CHLORIDE 0.9% 1,000 ML IV SCH (20:45)
[2020-12-04] MEDS ORDERED: HYDROcodone/APAP 5-325MG 1 EACH TAB PO STA (00:34)
--- NOTE | 2020-12-04 09:22 | P.CNNES ---
History of Present Illness Consult date: 12/04/20 Requesting physician: Veto Pedro Reason for Consult: altered mental status History of Present Illness: This is an 85-year-old woman that presented to the emergency department on 12/03/2020 for altered mentation. Some of the history is obtained from medical record. Patient did not know what brought her to the hospital upon asking her and same thing when the ED team asked her. Per the ED note, according to the daughter, she stated the patient has been more drowsy, fatigue she stated that she had a similar episode several weeks ago. She had at least one episode of diarrhea yesterday and has some abdominal discomfort earlier and it is reported that the patient had some increased confusion should she was started on Keppra 3 weeks ago. Patient on medication consisted off Keppra 1000 mg 1 tablet every 12 hours, amlodipine, Lasix, Eliquis 2.5 mg a tablet twice a day, citalopram, omeprazole, losartan/hydrochlorothiazide Some of the workup in the hospital consisted of: Initial vital signs was blood pressure of 96/49, heart rate of 61, respiratory of 18, temperature of 97.3 Fahrenheit oral and pulse ox of 97% at room air. CT of the head is reported as cerebral atrophy. No acute intracranial abnormality. No change. White blood cell is 5.1 which is considered within normal limits. Chemistry panel: Sodium is 139, AST of 26 ALT of 14 creatinine kinase is 33 which are all within normal limits. Creatinine is 1.33 which is mildly elevated in the glucose is 221 which is elevated. Urinalysis: It appears cloudy, nitrates positive, leukocyte esterase was large, urine white blood cell is more than 182 and urine bacteria is moderate. The urinalysis is suggestive of urinary tract infection. Of note the patient was seen by our team, initially she was seen by Dr. Lee on 11/05/2020 then lastly myself and in his note he stated that the patient had episode of confusion, a fees as some myoclonic jerks on and off for 4 days and has been persistent. She had 2-1/2 hours EEG was done and it was reported as FIRDA, with some triphasic waves in generalized slowing. Per Dr. Garcia after the patient was started on Keppra 1000 mg every 12 hours he felt her mentation is improved. 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 Metabolic encephalopathy is in differential. However no metabolic dysfunction identified that. Patient initially UA was negative but repeated urinalysis was abnormal with large amount of leukocyte esterase and 172 white blood cell. Urine cultures were negative. And it was felt that the patient mentation improved with Keppra and her seizure- like activity resolved. A carotid duplex and did not show any significant stenosis at. The vitamin B12 was 653 and the folate was 14.8 which within normal limits. The MRI the brain did not reveal any acute infarct or an intracranial abnormality. It showed chronic microvascular ischemic changes. Was recommended and for the patient to follow-up with Dr. Peter within 1-2 weeks as outpatient regarding further seizure management. Please refer to prior note for further details. Review of Systems Review of system: The 12 point system was reviewed and apparent positive and negative per HPI. Past Medical History Past Medical History: Atrial Fibrillation, Cancer, GERD/Reflux, Hypertension, Osteoarthritis (OA), Thyroid Disorder Additional Past Medical History / Comment(s): States irregular heart beat, Varicose Veins, Hx of 3 doses of radioactive iodine for Thyroid tx"for over active thyroid"., HX of a fall ,"headaches", pancreatitis, sinus i nfections, past gout, cataracts(sx done), hiatal hernia, uterine cancer >25 years ago(sx only), uti History of Any Multi-Drug Resistant Organisms: None Reported Past Surgical History: Cholecystectomy, Hysterectomy, Joint Replacement, Orthopedic Surgery, Tonsillectomy Additional Past Surgical History / Comment(s): PARTIAL LEFT HIP AND THEN TOTAL LEFT HIP., RIGHT CATARACT ([facility]). cataract BL Past Anesthesia/Blood Transfusion Reactions: No Reported Reaction Past Psychological History: Anxiety Additional Psychological History / Comment(s): pt lives with her bi. pt is independant. no home care services, no medical equipment. Smoking Status: Never smoker Past Alcohol Use History: None Reported Past Drug Use History: None Reported - Past Family History Sister(s) Family Medical History: Cancer Mother Additional Family Medical History / Comment(s): graves disease. comiited suicide in 1941 Father Family Medical History: Myocardial Infarction (SD) Medications and Allergies Home Medications Medication Instructions Recorded Confirmed Type Losartan/Hydrochlorothiazide 1 tab PO DAILY 01/11/19 12/03/20 History [Losartan-Hctz 100-25 mg Tab] amLODIPine [Norvasc] 10 mg PO HS 01/11/19 12/03/20 History Apixaban [Eliquis] 2.5 mg PO BID 11/04/20 12/03/20 History Donepezil Hcl 23mg 23 mg PO HS 11/04/20 12/03/20 History Furosemide [Lasix] 20 mg PO DAILY 11/04/20 12/03/20 History Acetaminophen Tab [Tylenol] 500 mg PO Q6HR PRN tab 11/09/20 12/03/20 Rx Citalopram Hydrobromide 40 mg PO DAILY 12/03/20 12/03/20 History [Citalopram HBr] Omeprazole 20 mg PO DAILY PRN 12/03/20 12/03/20 History Potassium Chloride ER [K-Dur 10] 10 meq PO DAILY 12/03/20 12/03/20 History Vit A,C & X-Otefhn-[place] [Ivite] 1 tab PO HS 12/03/20 12/03/20 History levETIRAcetam [Keppra] 1,000 mg PO BID 12/03/20 12/03/20 History Allergies Allergy/AdvReac Type Severity Reaction Status Date / Time nitrofurantoin Allergy Unknown Itching Verified 12/03/20 20:09 [From Macrobid] rofecoxib [From Vioxx] Allergy Unknown Hypertensio Verified 12/03/20 20:09 n sertraline [From Zoloft] Allergy Unknown Rash/Hives Verified 12/03/20 20:09 shellfish derived [Shellfish] AdvReac Severe Nausea & Verified 12/03/20 20:09 Vomiting, Very Ill. celecoxib [From Celebrex] AdvReac Unknown Loss of Verified 12/03/20 20:09 Balance Physical Examination - Vital Signs Vital Signs: Vital Signs Temp Pulse Pulse Resp BP BP Pulse Ox 12/04/20 02:00 97.7 F 63 16 114/70 99 12/03/20 23:30 63 16 12/03/20 23:04 97.9 F 62 18 125/80 99 12/03/20 22:42 98.1 F 66 16 109/66 100 12/03/20 20:52 70 16 100/67 99 12/03/20 19:40 97.6 F 58 L 16 111/69 99 12/03/20 19:00 68 18 100/58 97 12/03/20 16:53 70 18 93/56 99 12/03/20 16:34 97.3 F L 61 18 96/49 97 Intake and Output 12/03/20 12/04/20 12/04/20 22:59 06:59 14:59 Output Total 100 Balance -100 Output: Urine 100 Straight 100 Other: Voiding Method Diaper # Voids 0 Weight 82.599 kg 82.599 kg GENERAL: The patient is lying in bed and is not in acute distress. CHEST: The heart rate is regular rate rhythm. No murmurs to auscultation. No carotid bruit bilaterally. LUNG: Clear to auscultation bilaterally no wheezing noted throughout. Not labored breathing. ABDOMEN/GI: Bowel sounds present in all 4 quadrants. No tenderness to palpation throughout. NEUROLOGICAL: Higher mental function: The patient is awake, alert, oriented to self and place. She stated the year is 2020 correctly but the month is October. She is able to name objects correctly (pen, watch and glasses).. Patient is following commands. No aphasia and no neglect. Cranial nerves: The pupils are round, equal and reactive to light and accommodation. Visual dowell are full to confrontation throughout. Extraocular movement is intact no nystagmus is noted. Facial sensation is normal to touch throughout. The facial strength is normal throughout. Hearing is mildly to moderately bilaterally to hand rub. Tongue is midline and moved [id number] without any difficulty. No dysarthria is noted. Shoulder shrug is normal bilaterally. Motor: Gait is deferred. The strength is 5 over 5 throughout. Normal tone and bulk. Cerebellum: Normal finger to nose bilaterally. Sensation: Sensation is normal to touch throughout. Reflexes (right/left): 2+ throughout. Plantars are downgoing bilaterally. Results Urine drug screen is negative. Hook virus is not detected. - Laboratory Findings CBC and BMP: 12/03/20 17:20 12/03/20 17:20 Abnormal Lab Findings: Abnormal Labs 12/03/20 12/03/20 12/03/20 17:20 17:20 17:20 RBC 3.77 L Lymphocytes # 0.6 L Potassium 3.4 L BUN 28 H Creatinine 1.33 H Glucose 221 H POC Glucose (mg/dL) Total Protein 6.1 L Urine Appearance Cloudy H Urine Protein Trace H Urine Blood Trace H Urine Nitrite Positive H Ur Leukocyte Esterase Large H Urine RBC 6 H Urine WBC >182 H Urine WBC Clumps Many H Urine Bacteria Moderate H Hyaline Casts 9 H Urine Mucus Rare H 12/03/20 17:54 RBC Lymphocytes # Potassium BUN Creatinine Glucose POC Glucose (mg/dL) 250 H Total Protein Urine Appearance Urine Protein Urine Blood Urine Nitrite Ur Leukocyte Esterase Urine RBC Urine WBC Urine WBC Clumps Urine Bacteria Hyaline Casts Urine Mucus Assessment and Plan Assessment: * Altered mental status seems due to septic encephalopathy (from underlying UTI) and component of metabolic encephalopathy (acute kidney insuffiency and elevated sugar) ---mentation improving. 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 Her 2 1/2 hours on prior visit was negative for seizure or epileptiform discharges that is reported. Metabolic encephalopathy also in the differential. * Acute urinary tract infection. * Acute on chronic kidney insufficiency * Elevated sugar * History of atrial fibrillation on Eliquis * Hypertension * Mild cognitive impairment * Obesity Plan: * No need for repeat MRI since the patient had MRI of the brain on the last visits towards end of the October 2020. * ED team ordered Keppra level and is pending. * I will switch her antiepileptic medication from Keppra to Vimpat since patient is not tolerating the medication. Also the patient on Vimpat 50 mg 1 tablet twice a day and go down on Keppra to 500 mg every 12 hours. Then the following day I will increase the Vimpat 200 mg every 12 hours and the discontinue Keppra. * Patient needs to follow-up with Dr. Peter within 1-2 weeks as outpatient ([address] [place] [address] ) regarding further seizure management. Recommend prolonged EEG as outpatient * We'll defer the rest of the medical management to the primary team. The plan is discussed with the patient's nurse. Thank you for the consultation. Bry Machado MD Neuro-Hospitalist Time with Patient: Greater than 30
[2020-12-04] MEDS: LACOSAMIDE 50 MG TABLET PO SCH ×2 (10:46→22:28)
[2020-12-04] MEDS: levETIRAcetam 500 MG TAB PO SCH ×2 (10:46→22:28)
[2020-12-04] MEDS ORDERED: PANTOPRAZOLE 40 MG TABLET PO PRN (11:26)
[2020-12-04] MEDS ORDERED: ACETAMINOPHEN TAB 500 MG TAB PO PRN (11:26)
--- NOTE | 2020-12-04 15:52 | HP ---
HISTORY AND PHYSICAL DATE OF SERVICE: 12/04/2020 I am covering for Dr. Torrez. CHIEF COMPLAINT: Change in mental status and drowsiness. HISTORY OF PRESENT ILLNESS: This is an 85-year-old woman with a past medical history of multiple medical problems including atrial fibrillation, GERD, hypertension, DJD being followed by Dr. Torrez in the outpatient setting was noted to have some confusion. The daughter stated that the patient had episode of confusion a few weeks ago, it was waxing and waning and because of confusion and one episode of diarrhea and multiple other symptoms, the patient was taken to [facility] and was admitted for further evaluation and treatment. Initial evaluation showed normal white count, potassium 3.5, creatinine is 1.33, which is definitely worsening from the previous most recent labs indicating some mild acute renal failure. The patient also possibly has chronic kidney stage 2. Also patient had features of UTI. Antibiotics initiated. Patient admitted for further evaluation and treatment. The Keppra level was found to be 72.3 as well. Neurology has seen the patient and recommended to switch the antiepileptic medication from Keppra to Vimpat. The patient is being closely monitored. Patient is unable to provide a coherent history because of the underlying issues, but most history is taken from my discussions with staff and review of the chart. A brain CT scan showed cerebral atrophy, otherwise no acute changes. A chest x-ray also showed no active abnormality. PAST MEDICAL HISTORY: History of atrial fibrillation, history of GERD, hypertension, DJD, hypothyroidism. MEDICATIONS: Home medications prior to admission include Celexa, K-Dur, omeprazole, Keppra, IVite, losartan, Norvasc, Lasix, donepezil, Eliquis, Tylenol. ALLERGIES: MACROBID, VIOXX, ZOLOFT, SHELLFISH, CELEBREX. FAMILY HISTORY: History of Graves disease, suicide in the family. SOCIAL HISTORY: No history of smoking. No history of alcohol. REVIEW OF SYSTEMS: Review of systems could not be taken because of the patient's confusion. PHYSICAL EXAMINATION: VITAL SIGNS: Pulse 62, blood pressure 105/72, respirations 16, temperature 97.4, pulse ox 97% on room air. HEENT: Conjunctivae normal. Oral mucosa moist. NECK: No jugular venous distention. No carotid bruits. RESPIRATORY: Breath sounds diminished at the bases. A few scattered rhonchi. HEART: S1 and S2, muffled. ABDOMEN: Soft, no tenderness. No masses palpable. EXTREMITIES: No edema, no swelling. NERVOUS: Higher functions as mentioned earlier. Moves all four limbs. Mild diffuse weakness. LYMPHATICS: No lymph nodes palpable in the neck or axillae. SKIN: No rashes. JOINTS: No active deforming arthropathy. LABS: WBC 5.2, hemoglobin 12.2, sodium 139, potassium 3.4, creatinine 1.3. ASSESSMENT: 1. Acute urinary tract infection with possible sepsis present on admission. 2. Change in mental status acute metabolic encephalopathy secondary to sepsis and urinary tract infection. 3. Acute on chronic renal failure with possible dehydration with acute renal failure, acute tubular necrosis. 4. Chronic kidney disease stage 2 baseline. 5. Hypokalemia. 6. Diabetes mellitus type 2. 7. Elevated Keppra levels. 8. History of atrial fibrillation. 9. History of gastroesophageal reflux disease. 10.Hypertension. 11.History of degenerative joint disease. 12.Hypothyroidism. 13.History of seizure disorder. 14.History of varicose veins. 15.History of radioiodine treatment. 16.History of pancreatitis. 17.History of gout. 18.History of hiatal hernia. 19.History of cholecystectomy. 20.History of hysterectomy. 21.History of tonsillectomy. 22.History of anxiety. 23.NO CODE, NO CPR. NO VENT. RECOMMENDATIONS AND DISCUSSION: In this 85-year-old woman who presented with multiple complex medical issues, I would recommend to continue the current management and continue symptomatic treatment. Continue the broad-spectrum IV antibiotics. Change Keppra per Neurology. Otherwise, monitor closely. The CT scan was personally reviewed by me. No obvious focal neurological abnormalities are seen. Medication reconciliation will be done. Overall prognosis guarded because of multiple complex medical issues. DVT prophylaxis. PPI. Guarded prognosis. Further recommendations to follow. MMODL / IJN: [id number] /
[2020-12-04] MEDS: PANTOPRAZOLE 40 MG TABLET PO SCH (16:05)
[2020-12-04] MEDS: SODIUM CHLORIDE 0.9% 1,000 ML IV SCH ×2 (16:05→22:29)
[2020-12-04] MEDS: amLODIPine 10 MG TAB PO SCH (22:28)
[2020-12-04] MEDS: APIXABAN 2.5 MG TABLET PO SCH (22:28)
[2020-12-04] MEDS: DONEPEZIL 10 MG TAB PO SCH (22:28)
[2020-12-04] MEDS: VIT A,C & E-LUTEIN-MINERALS 1 EACH TAB PO SCH (22:31)
[2020-12-05] MEDS: LOSARTAN-HCTZ 50-12.5 MG 1 EACH TAB PO SCH (07:48)
[2020-12-05] MEDS: LACOSAMIDE 50 MG TABLET PO SCH ×3 (07:48→21:52)
[2020-12-05] MEDS: CITALOPRAM HYDROBROMIDE 20 MG TAB PO SCH (07:48)
[2020-12-05] MEDS: FUROSEMIDE 20 MG TAB PO SCH (07:49)
[2020-12-05] MEDS: POTASSIUM CHLORIDE ER 10 MEQ TAB.ER.PRT PO SCH (07:49)
[2020-12-05] MEDS: APIXABAN 2.5 MG TABLET PO SCH ×2 (07:49→21:52)
[2020-12-05] MEDS: PANTOPRAZOLE 40 MG TABLET PO SCH (07:49)
[2020-12-05 09:16] LABS: Basophils # (A) 0.04 X 10*3/uL (0.00-0.10); Basophils % (A) 0.8 %; Eosinophils # (A) 0.03 X 10*3/uL (0.04-0.35); Eosinophils % (A) 0.6 %; HCT 35.5 % (37.2-46.3); HGB 12.2 g/dL (12.0-15.0); Lymphocytes # (A) 1.29 X 10*3/uL (0.90-5.00); Lymphocytes % (A) 24.7 %; MCH 32.8 pg (27.0-32.0); MCHC 34.4 g/dL (32.0-37.0); MCV 95.4 fL (80.0-97.0); Mean Platelet Volume 11.8 fL (9.5-12.2); Monocytes # (A) 0.58 X 10*3/uL (0.20-1.00); Monocytes % (A) 11.1 %; Neutrophils # (A) 3.28 X 10*3/uL (1.80-7.70); Neutrophils % (A) 62.6 %; Platelet Count 226 X 10*3/uL (140-440); RBC 3.72 X 10*6/uL (4.10-5.20); RDW 11.9 % (11.5-14.5); WBC 5.23 X 10*3/uL (4.50-10.00)
[2020-12-05 09:48] LABS: African American GFR (CKD) 52.6 (60.0-200.0); Anion Gap 8.5 mmol/L (4.00-12.00); Calcium 9.1 mg/dL (8.7-10.3); Carbon Dioxide 27.5 mmol/L (21.6-31.8); Non-African American GFR(CKD) 45.4 (60.0-200.0); Potassium 3.3 mmol/L (3.5-5.5)
[2020-12-05] MEDS: SODIUM CHLORIDE 0.9% 1,000 ML IV SCH ×2 (12:12→12:33)
--- NOTE | 2020-12-05 13:26 | P.PN ---
Subjective Progress Note Date: 12/05/20 The patient is seen at [facility] and feels about the same. Per the patient nurse she was notified by her daughter that patient does not necessarily know the year or month all times and daughter feels her mentation has not been as sharp recently. Per the patient's daughter (Silvia) who I spoke via phone, she stated the patient has been more sleep since been on Keppra. The patient has not followed-up with Dr. Peter yet. Objective - Vital Signs Vital signs: Vital Signs Temp 97.9 F 12/05/20 07:00 Pulse 67 12/05/20 08:00 Resp 16 12/05/20 08:00 BP 137/79 12/05/20 07:00 Pulse Ox 99 12/05/20 07:15 Intake & Output 12/04/20 12/05/20 12/05/20 18:59 06:59 18:59 Intake Total 300 Balance 300 Intake: Oral 300 Other: Voiding Method Diaper Diaper Diaper # Voids 1 2 - Exam GENERAL: The patient is lying in bed and is not in acute distress. NEUROLOGICAL: Higher mental function: The patient is awake, alert, oriented to self. She stated year is 1934 and the month is October. She stated she is at [facility] currently. She correctly name the current [place] president. With option she correctly chose the name of current [place]. president. She is able to name objects correctly (pen, watch, cup, glassess). Patient is following commands. No apha brenda and no neglect. Cranial nerves: The pupils are round, equal and reactive to light and accommodat ion. Visual dowell are full to confrontation throughout. Extraocular movement is intact no nystagmus is noted. Facial sensation is normal to touch throughout. The facial strength is normal throughout. Hearing is mildly to moderately bilaterally to hand rub. Tongue is midline and moved [id number] without any difficulty. No dysarthria is noted. Shoulder shrug is normal bilaterally. Motor: Gait is deferred. The strength is 5 over 5 throughout. Normal tone and bulk. Cerebellum: Normal finger to nose bilaterally. Sensation: Sensation is normal to touch throughout. Reflexes (right/left): 2+ throughout. Plantars are downgoing bilaterally. - Labs CBC & Chem 7: 12/05/20 06:57 12/05/20 06:57 Labs: Abnormal Lab Results - Last 24 Hours (Table) 12/05/20 12/05/20 Range/Units 06:57 06:57 RBC 3.72 L (4.10-5.20) X 10*6/uL Hct 35.5 L (37.2-46.3) % MCH 32.8 H (27.0-32.0) pg Eosinophils # 0.03 L (0.04-0.35) X 10*3/uL Potassium 3.3 L (3.5-5.5) mmol/L Est GFR (CKD-EPI)AfAm 52.6 L (60.0-200.0) Est GFR (CKD-EPI)NonAf 45.4 L (60.0-200.0) Microbiology - Last 24 Hours (Table) 12/03/20 17:20 Urine Culture - Preliminary Urine,Voided Gram Neg Bacilli Assessment and Plan Assessment: * Altered mental status seems due to septic encephalopathy (from underlying UTI) and component of metabolic encephalopathy (acute kidney insuffiency and elevated sugar) ---mentation is improving. * Possible underlying cognitive impairement/Dementia. 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 Her 2 1/2 hours on prior visit was negative for seizure or epileptiform discharges that is reported. Metabolic encephalopathy also in the differential. * Acute urinary tract infection. * Acute on chronic kidney insufficiency * Elevated sugar * History of atrial fibrillation on Eliquis * Hypertension * Mild cognitive impairment * Obesity Plan: * No need for repeat MRI since the patient had MRI of the brain on the last visits towards end of the October 2020. * ED team ordered Keppra level: 72.3 (is supratherapeutic. Normal level is 3- 60). * I stopped Keppra because side-effects (making more sleepy). I started the patient on Vimpat on this admission and will increase it to 100mg 1 tab bid. * We'll defer the rest of the medical management to the primary team. * Per the patient's daughter, the patient is going to be moving to assisted living facility. * Patient needs to follow-up with Dr. Peter within 1-2 weeks as outpatient ([address] [place] [address] ) regarding further seizure management. Recommend prolonged EEG as outpatient. Recommend further work-up for dementia as outpatient. The plan is discussed with the patient's nurse and daughter (Silvia) via phone. By tomorrow AM, patient is clear for discharge from neurological stand point. Bry Machado MD Neuro-Hospitalist Time with Patient: Less than 30
--- NOTE | 2020-12-05 19:08 | PN ---
PROGRESS NOTE DATE OF SERVICE: 12/05/2020 I am covering for Dr. Torrez. This 85-year-old woman who was admitted with UTI with sepsis, also had change in mental status. The patient is on broad-spectrum IV antibiotics at this time. No chest pain. No palpitations. No fever. Neurology is following the patient closely. Underlying dementia suspected. The culture showed gram-negative bacilli. Final ID is pending at this time. PHYSICAL EXAMINATION: Alert and oriented x1. Pulse 59, blood pressure 106/67, respirations 16, temperature 97.4, pulse ox 98% on room air. HEENT: Conjunctivae normal. Oral mucosa moist. NECK: No jugular venous distention. No lymph node enlargement. CARDIOVASCULAR: S1, S2, muffled. No S3, no S4, RESPIRATORY: Diminished breath sounds at the bases. No rhonchi, no crackles. ABDOMEN: Soft, nontender. LEGS: No edema, no swelling. NERVOUS SYSTEM: No focal deficits. LABS: WBC 5.7, hemoglobin 12.2, sodium 141, potassium 3.3. UA noted. ASSESSMENT: 1. Acute urinary tract infection with possible sepsis, present on admission secondary to gram-negative bacilli. 2. Change in mental status, acute metabolic encephalopathy secondary to sepsis and urinary tract infection. 3. Acute renal failure with possible dehydration with acute tubular necrosis. 4. Chronic kidney disease stage 2 baseline. 5. Hypokalemia. 6. Diabetes mellitus type 2. 7. Elevated Keppra levels, being weaned off. 8. History of atrial fibrillation. 9. History of GERD. 10.Hypertension. 11.History of degenerative joint disease. 12.Hypothyroidism. 13.History of seizure disorder. 14.History of varicose veins. 15.History of radioiodine treatment. 16.History of pancreatitis. 17.History of gout. 18.History of hiatal hernia. 19.History of cholecystectomy. 20.History of hysterectomy. 21.History of tonsillectomy. 22.History of anxiety. 23.NO CODE, NO CPR, NO VENT. RECOMMENDATIONS AND DISCUSSION: I recommend to continue current medications, symptomatic treatment. Otherwise at this time I recommend continue the antibiotics. Await final ID of the organism. Dr. Torrez will follow tomorrow. Continue the rest of medications. Neurology input appreciated. Further recommendations to follow. MMODL / IJN: [id number] /
[2020-12-05] MEDS: amLODIPine 10 MG TAB PO SCH (21:52)
[2020-12-05] MEDS: VIT A,C & E-LUTEIN-MINERALS 1 EACH TAB PO SCH (21:52)
[2020-12-05] MEDS: DONEPEZIL 10 MG TAB PO SCH (21:52)
[2020-12-06] MEDS: SODIUM CHLORIDE 0.9% 1,000 ML IV SCH ×2 (08:22→19:48)
[2020-12-06] MEDS: FUROSEMIDE 20 MG TAB PO SCH (08:22)
[2020-12-06] MEDS: PANTOPRAZOLE 40 MG TABLET PO SCH (08:22)
[2020-12-06] MEDS: POTASSIUM CHLORIDE ER 10 MEQ TAB.ER.PRT PO SCH (08:22)
[2020-12-06] MEDS: APIXABAN 2.5 MG TABLET PO SCH ×2 (08:23→20:02)
[2020-12-06] MEDS: CITALOPRAM HYDROBROMIDE 20 MG TAB PO SCH (08:23)
[2020-12-06] MEDS: LOSARTAN-HCTZ 50-12.5 MG 1 EACH TAB PO SCH (08:24)
[2020-12-06] MEDS: LACOSAMIDE 50 MG TABLET PO SCH ×2 (08:25→20:02)
[2020-12-06] MEDS ORDERED: Potassium Replacement Protocol 1 EACH MISC MISCELLANE PRN ×2 (10:03→11:20)
[2020-12-06] MEDS ORDERED: CEFEPIME 1 GM in SODIUM CHLORIDE 0.9% 50 ML IVPB SCH (10:15)
[2020-12-06 10:56] LABS: African American GFR (CKD) 64 (>60 ml/min/1.73 sqM); Anion Gap 5 mmol/L; Blood Urea Nitrogen 19 mg/dL (7-17); Calcium 8.8 mg/dL (8.4-10.2); Carbon Dioxide 30 mmol/L (22-30); Chloride 104 mmol/L (98-107); Glucose 109 mg/dL (74-99); Magnesium 1.9 mg/dL (1.6-2.3); Non-African American GFR(CKD) 55 (>60 ml/min/1.73 sqM); Potassium 3.4 mmol/L (3.5-5.1); Sodium 139 mmol/L (137-145)
[2020-12-06] MEDS: SULFAMETHOX-TMP 800-160MG 1 EACH TAB PO SCH ×2 (10:57→20:02)
[2020-12-06] MEDS: POTASSIUM CHLORIDE ER 20 MEQ TAB.ER PO SCH ×2 (11:56→12:57)
--- NOTE | 2020-12-06 12:03 | P.DS ---
Providers Date of admission: 12/03/20 19:57 Expected date of discharge: 12/06/20 Attending physician: Yrn Torrez Consults: 12/03/20 19:57 Consult Physician Routine Consulting Provider: Miriam Lee Consult Reason/Comments: ams Do you want consulting provider notified?: Yes Primary care physician: Yrn Torrez [facility] Course: Final Diagnoses: Acute metabolic encephalopathy related to suspected sepsis, present on admission related to both acute UTI with Citrobacter freundii, in a patient with recurrent UTIs as well as acute renal insufficiency and elevated blood sugars Acute renal failure failure secondary to the above and dehydration, ATN ,resolved Recent seizure disorder, last admission Keppra initiated, Keppra discontinued this admission as per neurology secondary to sleepiness, change to Vimpat Chronic atrial fibrillation, anticoagulated on Eliquis History of TIA Gastroesophageal reflux disease Essential hypertension Diabetes mellitus type 2, uncontrolled, hyperglycemic, hemoglobin A1c ordered, pending. Hypokalemia Hospital course: This is an 85-year-old female admitted with sepsis, acute metabolic encephalopathy, acute UTI with Citrobacter freundii, in a patient with recurrent UTIs as well as acute renal insufficiency and elevated blood sugars. Maintained on antibiotics, gentle IV fluid hydration. Evaluated by neurology. Keppra discontinued related to complaints of increased sleeping. Vimpat initiated. As previously recommended on prior admission, patient is to follow- up with Stephen To MD - 1 Week (Prolonged EEG OP, further seizure management). Significant clinical improvement. Patient will be discharged today to either [facility] or subacute rehab., pending PT/OT evaluation, labs in a stable condition with guarded prognosis. Bactrim DS initiated, after in-depth discussion with pharmacist, considering patient's history of seizures and ALLERGIES. Patient will require close monitoring of renal function outpatient. Microbiology 12/03/20 17:20 Urine,Voided Urine Culture - Final Citrobacter freundii 12/04/20 16:09 Blood Blood Culture - Preliminary No Growth after 24 hours The impression and plan of care has been dictated as directed. : I performed a history and examination of this patient, discussed the same with the dictator. I agree with the dictator's note ,documented as a scribe. Any additional findings or plans will be noted. Patient Condition at Discharge: Stable Plan - Discharge Summary New Discharge Prescriptions: New Sulfamethox-Tmp 800-160Mg [Bactrim DS 800-160 mg] 1 each PO BID 3 Days #6 tab Lacosamide [Vimpat] 100 mg PO BID 3 Days #6 tab Continue Losartan/Hydrochlorothiazide [Losartan-Hctz 100-25 mg Tab] 1 tab PO DAILY amLODIPine [Norvasc] 10 mg PO HS Furosemide [Lasix] 20 mg PO DAILY Donepezil Hcl 23mg 23 mg PO HS Potassium Chloride ER [K-Dur 10] 10 meq PO DAILY Citalopram Hydrobromide [Citalopram HBr] 40 mg PO DAILY Apixaban [Eliquis] 2.5 mg PO BID Acetaminophen Tab [Tylenol] 500 mg PO Q6HR PRN tab PRN Reason: Fever and/ or Mild Pain Omeprazole 20 mg PO DAILY PRN PRN Reason: GERDS Vit A,C & E-Ynejch-Gicezrpx [Ivite] 1 tab PO HS Discontinued levETIRAcetam [Keppra] 1,000 mg PO BID Discharge Medication List Losartan/Hydrochlorothiazide [Losartan-Hctz 100-25 mg Tab] 1 tab PO DAILY 01/11/19 [History] amLODIPine [Norvasc] 10 mg PO HS 01/11/19 [History] Apixaban [Eliquis] 2.5 mg PO BID 11/04/20 [History] Donepezil Hcl 23mg 23 mg PO HS 11/04/20 [History] Furosemide [Lasix] 20 mg PO DAILY 11/04/20 [History] Acetaminophen Tab [Tylenol] 500 mg PO Q6HR PRN tab 11/09/20 [Rx] Citalopram Hydrobromide [Citalopram HBr] 40 mg PO DAILY 12/03/20 [History] Omeprazole 20 mg PO DAILY PRN 12/03/20 [History] Potassium Chloride ER [K-Dur 10] 10 meq PO DAILY 12/03/20 [History] Vit A,C & W-Fcsjvy-Qmwfbfig [Ivite] 1 tab PO HS 12/03/20 [History] Lacosamide [Vimpat] 100 mg PO BID 3 Days #6 tab 12/06/20 [Rx] Sulfamethox-Tmp 800-160Mg [Bactrim DS 800-160 mg] 1 each PO BID 3 Days #6 tab 12/06/20 [Rx] Follow up Appointment(s)/Referral(s): Yrn Torrez DO [Primary Care Provider] - 3 Days Stephen Peter MD [STAFF PHYSICIAN] - 1 Week Ambulatory/Diagnostic Orders: Complete Blood Count w/diff [LAB.AMB] Time Frame: 3 Days, Location: None Selected Activity/Diet/Wound Care/Special Instructions: Labs pending. PT/OT evaluation pending. Possible AFC versus subacute rehab
--- NOTE | 2020-12-06 13:47 | P.PN ---
Subjective Progress Note Date: 12/06/20 The patient is seen at [facility] and feels about the same today. Per the nurse, she feels she is orientedX2 and walking appropriately down the lemon the per the nurse. Objective - Vital Signs Vital signs: Vital Signs Temp 97.8 F 12/06/20 07:00 Pulse 82 12/06/20 07:00 Resp 18 12/06/20 07:00 BP 129/67 12/06/20 07:00 Pulse Ox 98 12/06/20 07:00 Intake & Output 12/05/20 12/06/20 12/06/20 18:59 06:59 18:59 Intake Total 600 118 Balance 600 118 Intake: Oral 600 118 Other: Voiding Method Diaper Diaper Diaper # Voids 2 1 1 # Bowel Movements 1 - Exam GENERAL: The patient is lying in bed and is not in acute distress. NEUROLOGICAL: Higher mental function: The patient is awake, alert, oriented to self and place. She stated year is 1990 and the month is October. She is able to name objects correctly (pen, watch, cup, glassess). Patient is following commands. No aphasia and no neglect. Cranial nerves: The pupils are round, equal and reactive to light and accommodation. Visual dowell are full to confrontation throughout. Extraocular movement is intact no nystagmus is noted. Facial sensation is normal to touch throughout. The facial strength is normal throughout. Hearing is mildly to moderately bilaterally to hand rub. Tongue is midline and moved [id number] without any difficulty. No dysarthria is noted. Shoulder shrug is normal bilaterally. Motor: Gait is deferred. The strength is 5 over 5 throughout. Normal tone and bulk. Cerebellum: Normal finger to nose bilaterally. Sensation: Sensation is normal to touch throughout. Reflexes (right/left): 2+ throughout. Plantars are downgoing bilaterally. - Labs CBC & Chem 7: 12/05/20 06:57 12/06/20 10:12 Labs: Abnormal Lab Results - Last 24 Hours (Table) 12/06/20 Range/Units 10:12 Potassium 3.4 L (3.5-5.1) mmol/L BUN 19 H (7-17) mg/dL Glucose 109 H (74-99) mg/dL Microbiology - Last 24 Hours (Table) 12/03/20 17:20 Urine Culture - Final Urine,Voided Citrobacter freundii 12/04/20 16:09 Blood Culture - Preliminary Blood No Growth after 24 hours Assessment and Plan Assessment: * Altered mental status seems due to septic encephalopathy (from underlying UTI) and component of metabolic encephalopathy (acute kidney insuffiency and elevated sugar) ---mentation is improving. * Possible underlying cognitive impairement/Dementia. 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 Her 2 1/2 hours on prior visit was negative for seizure or epileptiform discharges that is reported. Metabolic encephalopathy also in the differential. * Acute urinary tract infection. * Acute on chronic kidney insufficiency * Elevated sugar * History of atrial fibrillation on Eliquis * Hypertension * Mild cognitive impairment * Obesity Plan: * No need for repeat MRI since the patient had MRI of the brain on the last visits towards end of the October 2020. * ED team ordered Keppra level: 72.3 (is supratherapeutic. Normal level is 3- 60). * I stopped Keppra because side-effects (making more sleepy). I started the patient on Vimpat on this admission and will increase it to 100mg 1 tab bid. * We'll defer the rest of the medical management to the primary team. * Per the patient's daughter, the patient is going to be moving to assisted living facility. * Patient needs to follow-up with Dr. Peter within 1-2 weeks as outpatient ([address] [place] [address] ) regarding further seizure management. Recommend prolonged EEG as outpatient. Recommend further work-up for dementia as outpatient. The plan is discussed with the patient's nurse. The patient is clear for discharge from neurological stand point. Bry Machado MD Neuro-Hospitalist Time with Patient: Less than 30
[2020-12-06] MEDS: amLODIPine 10 MG TAB PO SCH (20:02)
[2020-12-06] MEDS: DONEPEZIL 10 MG TAB PO SCH (20:02)
[2020-12-06] MEDS: VIT A,C & E-LUTEIN-MINERALS 1 EACH TAB PO SCH (20:16)
[2020-12-06 22:31] LABS: Hemoglobin A1C 5.6 % (4.0-6.0)
[2020-12-07] MEDS: SODIUM CHLORIDE 0.9% 1,000 ML IV SCH (03:35)
[2020-12-07 07:36] VITALS: BP 147/68; PULSE 53; RESP 14; TEMP 97.9
[2020-12-07] MEDS: SULFAMETHOX-TMP 800-160MG 1 EACH TAB PO SCH (08:30)
[2020-12-07] MEDS: LOSARTAN-HCTZ 50-12.5 MG 1 EACH TAB PO SCH (08:30)
[2020-12-07] MEDS: FUROSEMIDE 20 MG TAB PO SCH (08:31)
[2020-12-07] MEDS: CITALOPRAM HYDROBROMIDE 20 MG TAB PO SCH (08:31)
[2020-12-07] MEDS: POTASSIUM CHLORIDE ER 10 MEQ TAB.ER.PRT PO SCH (08:31)
[2020-12-07] MEDS: APIXABAN 2.5 MG TABLET PO SCH (08:31)
[2020-12-07] MEDS: PANTOPRAZOLE 40 MG TABLET PO SCH (08:31)
[2020-12-07] MEDS: LACOSAMIDE 50 MG TABLET PO SCH (08:31)
== END 2020-12-07 11:43 | disposition home or self-care (01) | DRG 871 ==
LOC: EC 16:31 → 6NMEDSUR 19:57 → OBSVTOIN 12-06 13:53
PROVIDERS: ADMIT Family Medicine; ATTEND Family Medicine
DX: A41.9 Sepsis, unspecified organism (principal); N17.0 Acute kidney failure with tubular necrosis; G93.41 Metabolic encephalopathy; I48.20 Chronic atrial fibrillation, unspecified; N39.0 Urinary tract infection, site not specified; R65.20 Severe sepsis without septic shock; K21.9 Gastro-esophageal reflux disease without esophagitis; M19.90 Unspecified osteoarthritis, unspecified site; E03.9 Hypothyroidism, unspecified; Z20.822 Contact with and (suspected) exposure to COVID-19; E66.9 Obesity, unspecified; F03.90 Unspecified dementia, unspecified severity, without behavioral disturbance, psychotic disturbance, mood disturbance, and anxiety; I12.9 Hypertensive chronic kidney disease with stage 1 through stage 4 chronic kidney disease, or unspecified chronic kidney disease; N18.2 Chronic kidney disease, stage 2 (mild); E87.6 Hypokalemia; G40.909 Epilepsy, unspecified, not intractable, without status epilepticus; E86.0 Dehydration; E11.22 Type 2 diabetes mellitus with diabetic chronic kidney disease; E11.65 Type 2 diabetes mellitus with hyperglycemia; B96.89 Other specified bacterial agents as the cause of diseases classified elsewhere; F41.9 Anxiety disorder, unspecified; M10.9 Gout, unspecified; I83.90 Asymptomatic varicose veins of unspecified lower extremity; Z90.710 Acquired absence of both cervix and uterus; Z90.49 Acquired absence of other specified parts of digestive tract; Z87.440 Personal history of urinary (tract) infections; Z86.73 Personal history of transient ischemic attack (TIA), and cerebral infarction without residual deficits; Z85.42 Personal history of malignant neoplasm of other parts of uterus; Z79.899 Other long term (current) drug therapy; Z79.01 Long term (current) use of anticoagulants; Z82.49 Family history of ischemic heart disease and other diseases of the circulatory system
CPT/HCPCS: 36415; 70450; 71046; 74018; 80048; 80053; 80177; 80306; 81001; 82550; 83036; 83735; 84132; 84484; 85025; 85610; 85730; 87040; 87077; 87086; 87186; 87635; 93005; 94760; 99285

== ENCOUNTER → 2020-12-09 | Outpatient (CLI) | payer MEDICARE ==
[2020-12-09 23:16] LABS: HCT 34.5 % (37.2-46.3); HGB 11.7 g/dL (12.0-15.0); MCHC 33.9 g/dL (32.0-37.0); MCV 97.2 fL (80.0-97.0); Mean Platelet Volume 12.3 fL (9.5-12.2); Platelet Count 240 X 10*3/uL (140-440); RBC 3.55 X 10*6/uL (4.10-5.20); RDW 12.2 % (11.5-14.5); WBC 6.33 X 10*3/uL (4.50-10.00)
[2020-12-10 04:09] LABS: African American GFR (CKD) 25.6 (60.0-200.0); Anion Gap 13.1 mmol/L (4.00-12.00); Carbon Dioxide 23.9 mmol/L (21.6-31.8)
== END | disposition home or self-care (01) ==
LOC: LABWHC1 13:45
PROVIDERS: ATTEND Nurse Practitioner
DX: N39.0 Urinary tract infection, site not specified (principal)
CPT/HCPCS: 36415; 80048; 85027

== ENCOUNTER 2021-08-06 04:18 | Emergency (ER) | payer MEDICARE ==
--- NOTE | 2021-08-06 04:28 | ED ---
Fall HPI - General Stated Complaint: Fall Time Seen by Provider: 08/06/21 04:27 Source: RN notes reviewed, old records reviewed, Caregiver Mode of arrival: EMS Limitations: altered mental status - History of Present Illness Initial Comments: This is an 86-year-old female to the emergency department for a fall. Patient had fall off her bed extended care facility prior to arrival. Patient is on blood thinners. Patient is relatively poor strain secondary to age and mild dementia. Patient is now without any significant complaint. No headache. No neck pain. She apparently did complaining of neck pain prior to arrival. Also complaining of some upper back pain. She was originally concerned she was unable to stand up or walk was able to stand up at extended-care facility. Patient denying any significant pain currently MD Complaint: fall -: hour(s) Fall From: out of bed When Fall Occurred: 1 hour [facility] Fall Witnessed: no Place Fall Occurred: group home/SNF Loss of Consciousness: none Prolonged Down Time?: no Symptoms Prior to Fall: none Location: head, neck, back Severity: moderate Severity scale (1-10): 4 Context: tripped/slipped Associated Symptoms: denies - Related Data Home Medications Medication Instructions Recorded Confirmed Losartan/Hydrochlorothiazide 1 tab PO DAILY 01/11/19 12/03/20 [Losartan-Hctz 100-25 mg Tab] amLODIPine [Norvasc] 10 mg PO HS 01/11/19 12/03/20 Apixaban [Eliquis] 2.5 mg PO BID 11/04/20 12/03/20 Donepezil Hcl 23mg 23 mg PO HS 11/04/20 12/03/20 Furosemide [Lasix] 20 mg PO DAILY 11/04/20 12/03/20 Citalopram Hydrobromide 40 mg PO DAILY 12/03/20 12/03/20 [Citalopram HBr] Omeprazole 20 mg PO DAILY PRN 12/03/20 12/03/20 Potassium Chloride ER [K-Dur 10] 10 meq PO DAILY 12/03/20 12/03/20 Vit A,C & Q-[id number] [Ivite] 1 tab PO HS 12/03/20 12/03/20 Previous Rx's Medication Instructions Recorded Acetaminophen Tab [Tylenol] 500 mg PO Q6HR PRN tab 11/09/20 Lacosamide [Vimpat] 100 mg PO BID 3 Days #6 tab 12/06/20 Sulfamethox-Tmp 800-160Mg [Bactrim 1 each PO BID 3 Days #6 tab 12/06/20 DS 800-160 mg] Allergies Allergy/AdvReac Type Severity Reaction Status Date / Time nitrofurantoin Allergy Unknown Itching Verified 12/03/20 20:09 [From Macrobid] rofecoxib [From Vioxx] Allergy Unknown Hypertensio Verified 12/03/20 20:09 n sertraline [From Zoloft] Allergy Unknown Rash/Hives Verified 12/03/20 20:09 shellfish derived [Shellfish] AdvReac Severe Nausea & Verified 12/03/20 20:09 Vomiting, Very Ill. celecoxib [From Celebrex] AdvReac Unknown Loss of Verified 12/03/20 20:09 Balance Review of Systems ROS Statement: Those systems with pertinent positive or pertinent negative responses have been documented in the HPI. ROS Other: All systems not noted in ROS Statement are negative. Past Medical History Past Medical History: Atrial Fibrillation, Cancer, GERD/Reflux, Hypertension, Osteoarthritis (OA), Thyroid Disorder Additional Past Medical History / Comment(s): States irregular heart beat, Varicose Veins, Hx of 3 doses of radioactive iodine for Thyroid tx"for over active thyroid"., HX of a fall ,"headaches", pancreatitis, sinus infections, past gout, cataracts(sx done), hiatal hernia, uterine cancer >25 years ago(sx only), uti History of Any Multi-Drug Resistant Organisms: None Reported Past Surgical History: Cholecystectomy, Hysterectomy, Joint Replacement, Orthopedic Surgery, Tonsillectomy Additional Past Surgical History / Comment(s): PARTIAL LEFT HIP AND THEN TOTAL LEFT HIP., RIGHT CATARACT ([facility]). cataract BL Past Anesthesia/Blood Transfusion Reactions: No Reported Reaction Past Psychological History: Anxiety Additional Psychological History / Comment(s): pt lives with her bi. pt is independant. no home care services, no medical equipment. Smoking Status: Never smoker Past Alcohol Use History: None Reported Past Drug Use History: None Reported - Past Family History Sister(s) Family Medical History: Cancer Mother Additional Family Medical History / Comment(s): graves disease. comiited suic [place] in 1941 Father Family Medical History: Myocardial Infarction (ND) General Exam General appearance: alert, in no apparent distress Head exam: Present: atraumatic, normocephalic, normal inspection Eye exam: Present: normal appearance, PERRL, EOMI. Absent: scleral icterus, con junctival injection, periorbital swelling ENT exam: Present: normal exam, mucous membranes moist Neck exam: Present: normal inspection. Absent: tenderness, meningismus, lymphadenopathy Respiratory exam: Present: normal lung sounds bilaterally. Absent: respiratory distress, wheezes, rales, rhonchi, stridor Cardiovascular Exam: Present: regular rate, normal rhythm, normal heart sounds. Absent: systolic murmur, diastolic murmur, rubs, gallop, clicks GI/Abdominal exam: Present: soft, normal bowel sounds. Absent: distended, tenderness, guarding, rebound, rigid Extremities exam: Present: normal inspection, full ROM, normal capillary refill. Absent: tenderness, pedal edema, joint swelling, calf tenderness Back exam: Present: normal inspection Neurological exam: Present: alert, oriented X3, CN II-XII intact Psychiatric exam: Present: normal affect, normal mood Skin exam: Present: warm, dry, intact, normal color. Absent: rash Course Vital Signs 08/06/21 08/06/21 08/06/21 04:21 06:09 07:48 Temperature 97.0 F L Pulse Rate 75 77 77 Respiratory 18 16 18 Rate Blood Pressure 173/102 178/92 148/92 O2 Sat by Pulse 95 93 L 97 Oximetry - Reevaluation(s) Reevaluation #1: Medical record is reviewed Patient remains a symptomatically here in the ER Patient family informed results and questions are answered Medical Decision Making - Medical Decision Making 86 female fall out of bed on blood thinners. Patient is no injuries noted. X- ray CT scans are negative patient can be discharged home - Lab Data Result diagrams: 08/06/21 04:56 08/06/21 04:56 Lab Results 08/06/21 08/06/21 08/06/21 Range/Units 04:56 04:56 04:56 WBC 5.1 (3.8-10.6) k/uL RBC 3.71 L (3.80-5.40) m/uL Hgb 12.2 (11.4-16.0) gm/dL Hct 37.5 (34.0-46.0) % MCV 101.3 H (80.0-100.0) fL MCH 32.9 (25.0-35.0) pg MCHC 32.5 (31.0-37.0) g/dL RDW 12.9 (11.5-15.5) % Plt Count 231 (150-450) k/uL MPV 8.5 Neutrophils % 62 % Lymphocytes % 23 % Monocytes % 9 % Eosinophils % 3 % Basophils % 1 % Neutrophils # 3.2 (1.3-7.7) k/uL Lymphocytes # 1.2 (1.0-4.8) k/uL Monocytes # 0.5 (0-1.0) k/uL Eosinophils # 0.2 (0-0.7) k/uL Basophils # 0.0 (0-0.2) k/uL PT 10.4 (9.0-12.0) sec INR 1.0 (<1.2) APTT 24.6 (22.0-30.0) sec Sodium 137 (137-145) mmol/L Potassium 4.4 (3.5-5.1) mmol/L Chloride 101 (98-107) mmol/L Carbon Dioxide 28 (22-30) mmol/L Anion Gap 8 mmol/L BUN 24 H (7-17) mg/dL Creatinine 1.02 (0.52-1.04) mg/dL Est GFR (CKD-EPI)AfAm 57 (>60 ml/min/1.73 sqM) Est GFR (CKD-EPI)NonAf 50 (>60 ml/min/1.73 sqM) Glucose 104 H (74-99) mg/dL Calcium 9.3 (8.4-10.2) mg/dL Phosphorus 4.0 (2.5-4.5) mg/dL Magnesium 2.2 (1.6-2.3) mg/dL Total Bilirubin 0.5 (0.2-1.3) mg/dL AST 62 H (14-36) U/L ALT 233 H (4-34) U/L Alkaline Phosphatase 189 H (38-126) U/L Troponin I (0.000-0.034) ng/mL NT-Pro-B Natriuret Pep pg/mL Total Protein 6.9 (6.3-8.2) g/dL Albumin 4.0 (3.5-5.0) g/dL 08/06/21 08/06/21 Range/Units 04:56 04:56 WBC (3.8-10.6) k/uL RBC (3.80-5.40) m/uL Hgb (11.4-16.0) gm/dL Hct (34.0-46.0) % MCV (80.0-100.0) fL MCH (25.0-35.0) pg MCHC (31.0-37.0) g/dL RDW (11.5-15.5) % Plt Count (150-450) k/uL MPV Neutrophils % % Lymphocytes % % Monocytes % % Eosinophils % % Basophils % % Neutrophils # (1.3-7.7) k/uL Lymphocytes # (1.0-4.8) k/uL Monocytes # (0-1.0) k/uL Eosinophils # (0-0.7) k/uL Basophils # (0-0.2) k/uL PT (9.0-12.0) sec INR (<1.2) APTT (22.0-30.0) sec Sodium (137-145) mmol/L Potassium (3.5-5.1) mmol/L Chloride (98-107) mmol/L Carbon Dioxide (22-30) mmol/L Anion Gap mmol/L BUN (7-17) mg/dL Creatinine (0.52-1.04) mg/dL Est GFR (CKD-EPI)AfAm (>60 ml/min/1.73 sqM) Est GFR (CKD-EPI)NonAf (>60 ml/min/1.73 sqM) Glucose (74-99) mg/dL Calcium (8.4-10.2) mg/dL Phosphorus (2.5-4.5) mg/dL Magnesium (1.6-2.3) mg/dL Total Bilirubin (0.2-1.3) mg/dL AST (14-36) U/L ALT (4-34) U/L Alkaline Phosphatase (38-126) U/L Troponin I 0.012 (0.000-0.034) ng/mL NT-Pro-B Natriuret Pep 1870 pg/mL Total Protein (6.3-8.2) g/dL Albumin (3.5-5.0) g/dL - EKG Data -: EKG Interpreted by Me (EKG is A. fib 80 QRS 132 QTC 446) - Radiology Data Radiology results: report reviewed (CT brain C-spine, x-rays of stress C-spine and chest pelvis x-ray negative for traumatic injury), image reviewed Disposition Clinical Impression: Fall Disposition: HOME SELF-CARE Condition: Good Instructions (If sedation given, give patient instructions): Fall Prevention for Older Adults (ED) Is patient prescribed a controlled substance at d/c from ED?: No Referrals: Yrn Torrez DO [Primary Care Provider] - 1-2 days
[2021-08-06 04:32] VITALS: TEMP 97
[2021-08-06] MEDS ORDERED: SODIUM CHLORIDE 0.9% 1,000 ML IV STA (04:40)
[2021-08-06 05:04] LABS: Basophils % (A) 1 %; Eosinophils # (A) 0.2 k/uL (0-0.7); Eosinophils % (A) 3 %; HCT 37.5 % (34.0-46.0); HGB 12.2 gm/dL (11.4-16.0); Lymphocytes # (A) 1.2 k/uL (1.0-4.8); Lymphocytes % (A) 23 %; MCH 32.9 pg (25.0-35.0); MCHC 32.5 g/dL (31.0-37.0); MCV 101.3 fL (80.0-100.0); Mean Platelet Volume 8.5; Monocytes # (A) 0.5 k/uL (0-1.0); Monocytes % (A) 9 %; Neutrophils # (A) 3.2 k/uL (1.3-7.7); Neutrophils % (A) 62 %; Platelet Count 231 k/uL (150-450); RBC 3.71 m/uL (3.80-5.40); RDW 12.9 % (11.5-15.5); WBC 5.1 k/uL (3.8-10.6)
[2021-08-06 05:15] LABS: Partial Thromboplastin Time 24.6 sec (22.0-30.0); Prothrombin Time 10.4 sec (9.0-12.0)
[2021-08-06 05:17] LABS: Calcium 9.3 mg/dL (8.4-10.2); Magnesium 2.2 mg/dL (1.6-2.3); Total Bilirubin 0.5 mg/dL (0.2-1.3); Total Protein 6.9 g/dL (6.3-8.2)
[2021-08-06 05:19] LABS: Potassium 4.4 mmol/L (3.5-5.1)
--- NOTE | 2021-08-06 05:32 | XR ---
EXAMINATION TYPE: XR chest 1V DATE OF EXAM: 08/06/2021 COMPARISON: 12/03/2020 HISTORY: Altered mental status. Chest pain TECHNIQUE: FINDINGS: There is no heart failure nor confluent pneumonic infiltrate. Heart size is fairly normal. There are no hilar masses. There is slight coarsening of interstitial markings. IMPRESSION: Minimal pulmonary fibrotic changes. No acute lung disease. No adverse change compared to the old exam.
--- NOTE | 2021-08-06 05:34 | XR ---
EXAMINATION TYPE: XR pelvis AP view DATE OF EXAM: 08/06/2021 COMPARISON: 01/11/2019 HISTORY: Fall. Pain TECHNIQUE: Single view FINDINGS: The pelvic ring is intact. There is left hip prosthesis. Proximal right femur is intact. Sa croiliac joints are intact. IMPRESSION: No acute abnormality of the pelvis. No fracture. No change compared to 01/11/2019.
--- NOTE | 2021-08-06 05:41 | CT ---
EXAMINATION TYPE: CT brain cspine wo con DATE OF EXAM: 08/06/2021 COMPARISON: 12/03/2020 HISTORY: fall CT DLP: 1458.6 mGycm Automated exposure control for dose reduction was used. Images of the brain and cervical spine obtained without contrast. There is cerebral cortical atrophy. There is no mass effect nor midline shift. There is no evidence o f intracranial hemorrhage. Calvarium is intact. There is normal aeration of the mastoid sinuses. The cervical vertebra show normal alignment. There is mild cervical hypertrophic facet arthropathy. P revertebral soft tissues are intact. There is no compression fracture. The skull base is intact. IMPRESSION: Cerebral atrophy. No acute intracranial abnormality. Brain not changed compared to old exam. Mild degenerative changes in the cervical spine. No fracture.
[2021-08-06 06:10] VITALS: PULSE 77
[2021-08-06 07:49] VITALS: BP 148/92; RESP 18
== END 2021-08-06 07:48 | disposition home or self-care (01) ==
LOC: EC 04:18
DX: Z04.3 Encounter for examination and observation following other accident (principal); I10 Essential (primary) hypertension; I48.91 Unspecified atrial fibrillation; K21.9 Gastro-esophageal reflux disease without esophagitis; M19.90 Unspecified osteoarthritis, unspecified site; Z79.01 Long term (current) use of anticoagulants; Z79.899 Other long term (current) drug therapy; W06.XXXA Fall from bed, initial encounter; Y92.129 Unspecified place in nursing home as the place of occurrence of the external cause
CPT/HCPCS: 36415; 70450; 71045; 72125; 72170; 80053; 83735; 83880; 84100; 84484; 85025; 85610; 85730; 93005; 96360; 96361; 99285

== ENCOUNTER 2022-08-28 19:05 | Inpatient (IN) | payer MEDICARE ==
--- NOTE | 2022-08-28 19:45 | ED ---
Weakness HPI - General Chief complaint: Weakness Stated complaint: UTI Time Seen by Provider: 08/28/22 19:10 Source: patient, EMS, RN notes reviewed Mode of arrival: EMS Limitations: altered mental status, physical limitation - History of Present Illness Initial comments: This is an 87-year-old female who presents to the emergency department for weakness. Per EMS, the patient was started on Macrobid for a UTI 3 days ago. These were prescribed by [facility]. Her family is concerned that she's not had any improvement since being on antibiotics, and she continues to get weaker. She's had increasing confusion and has not been able to move around as much as she usually does. This has also been reported by the staff at [facility], where she lives, who has also been concerned about her. Patient has dementia and is a poor historian herself. She does have swelling to the bilateral lower extremities. Patient's family states that this is improved compared with prior and is being treated with Lasix. She is supposed to keep her legs elevated, but often forgets to do so. MD Complaint: generalized weakness - Related Data Home Medications Medication Instructions Recorded Confirmed Apixaban [Eliquis] 2.5 mg PO BID 11/04/20 08/28/22 Omeprazole 20 mg PO DAILY 12/03/20 08/28/22 Acetaminophen Tab [Tylenol] 1,000 mg PO BID PRN 08/28/22 08/28/22 Cetirizine HCl 10 mg PO HS 08/28/22 08/28/22 Citalopram Hydrobromide [CeleXA] 20 mg PO DAILY 08/28/22 08/28/22 Donepezil [Aricept] 10 mg PO HS 08/28/22 08/28/22 Furosemide [Lasix] 40 mg PO BID@0900,1600 08/28/22 08/28/22 Loperamide HCl [Loperamide] 2 - 4 mg PO QID PRN 08/28/22 08/28/22 Mupirocin 2% Oint [Bactroban 2% 1 applic TOPICAL BID PRN 08/28/22 08/28/22 Oint] Nitrofurantoin Monohyd/M-Cryst 100 mg PO BID 08/28/22 08/28/22 [Macrobid] OXcarbazepine [Trileptal] 150 mg PO BID 08/28/22 08/28/22 Potassium Chloride ER [K-Dur 20] 20 meq PO DAILY 08/28/22 08/28/22 amLODIPine [Norvasc] 5 mg PO DAILY 08/28/22 08/28/22 buPROPion [Wellbutrin] 75 mg PO DAILY 08/28/22 08/28/22 Allergies Allergy/AdvReac Type Severity Reaction Status Date / Time nitrofurantoin Allergy Unknown Itching Verified 08/28/22 19:49 [From Macrobid] rofecoxib [From Vioxx] Allergy Unknown Hypertensio Verified 08/28/22 19:49 n sertraline [From Zoloft] Allergy Unknown Rash/Hives Verified 08/28/22 19:49 shellfish derived [Shellfish] AdvReac Severe Nausea & Verified 08/28/22 19:49 Vomiting, Very Ill. celecoxib [From Celebrex] AdvReac Unknown Loss of Verified 08/28/22 19:49 Balance iodine AdvReac Nausea & Verified 08/28/22 19:49 Vomiting Review of Systems ROS Statement: Those systems with pertinent positive or pertinent negative responses have been documented in the HPI. ROS Other: All systems not noted in ROS Statement are negative. Limitations: ROS unobtainable due to patients medical condition Past Medical History Past Medical History: Atrial Fibrillation, Cancer, GERD/Reflux, Hypertension, Osteoarthritis (OA), Thyroid Disorder Additional Past Medical History / Comment(s): States irregular heart beat, Varicose Veins, Hx of 3 doses of radioactive iodine for Thyroid tx"for over active thyroid"., HX of a fall ,"headaches", pancreatitis, sinus infections, past gout, cataracts(sx done), hiatal hernia, uterine cancer >25 years ago(sx only), uti History of Any Multi-Drug Resistant Organisms: None Reported Past Surgical History: Cholecystectomy, Hysterectomy, Joint Replacement, Orthopedic Surgery, Tonsillectomy Additional Past Surgical History / Comment(s): PARTIAL LEFT HIP AND THEN TOTAL LEFT HIP., RIGHT CATARACT ([facility]). cataract BL Past Anesthesia/Blood Transfusion Reactions: No Reported Reaction Past Psychological History: Anxiety Smoking Status: Never smoker Past Alcohol Use History: None Reported Past Drug Use History: None Reported - Past Family History Sister(s) Family Medical History: Cancer Mother Additional Family Medical History / Comment(s): graves disease. comiited suicide in 1941 Father Family Medical History: Myocardial Infarction ([place]) General Exam Limitations: altered mental status, physical limitation General appearance: alert, in no apparent distress Head exam: Present: atraumatic, normocephalic, normal inspection Respiratory exam: Present: normal lung sounds bilaterally. Absent: respiratory distress, wheezes, rales, rhonchi, stridor Cardiovascular Exam: Present: regular rate, normal rhythm, normal heart sounds. Absent: systolic murmur, diastolic murmur, rubs, gallop, clicks GI/Abdominal exam: Present: soft, normal bowel sounds. Absent: distended, tenderness, guarding, rebound, rigid Extremities exam: Present: other (2+ pitting edema to the bilateral lower extremities.) Neurological exam: Present: alert, other (Oriented to herself) Psychiatric exam: Present: normal affect, normal mood Skin exam: Present: warm, dry, intact, normal color. Absent: rash Course Vital Signs 08/28/22 08/28/22 19:13 21:59 Temperature 98.2 F Pulse Rate 74 90 Respiratory 18 18 Rate Blood Pressure 130/72 144/93 O2 Sat by Pulse 97 99 Oximetry Medical Decision Making - Medical Decision Making This is an 87-year-old female who presents to the emergency department for weakness. Was pt. sent in by a medical professional or institution? @ -No Did you speak to anyone other than the patient for history? @ -EMS and her daughter Did you review nursing and triage notes? @ -Yes, and I agree, it is accurate with regards to the patient's symptoms. Were old charts reviewed? @ -No Differential Diagnosis? @ -Differential Weakness: Hypoglycemia, shock, sepsis, hyponatremia, anemia, infection, [place], ETOH, adverse medicine reaction, overdose, stroke, this is not meant to be an all-inclusive list. EKG interpreted by me (3pts min.)? @ -Atrial fibrillation. Left axis deviation. Ventricular rate 75 BPM, QRS duration 133 ms, QTc 464 ms. X-rays interpreted by me (1pt min.)? @ -Cardiomegaly. No localized consolidations or infiltrates. What testing was considered but not performed? (CT, X-rays, U/S, labs)? Why? @ -None What meds were considered but not given? Why? @ -None Did you discuss the management of the patient with other professionals? @ -Yes, Dr. Torrez, who accepts the patient for admission. Did you reconcile home meds? @ -Yes Was smoking cessation discussed for >3mins.? @ -No Was critical care preformed (if so, how long)? @ -No Were there social determinants of health that impacted care today? How? (Homelessness, low income, unemployed, alcoholism, drug addiction, transpor tation, low edu. Level, literacy, decrease access to med. care, correction, rehab)? @ -No Was there de-escalation of care discussed even if they declined? (Discuss DNR or withdrawal of care, Hospice)? @ -No What co-morbidities impacted this encounter? (DM, HTN, Smoking, COPD, CAD, Cancer, CVA, Hep., AIDS, mental health diagnosis, sleep apnea, morbid obesity)? @ -A-fib, HTN, edema, dementia Was patient admitted / discharged? @ -Admitted. Lab work obtained and consistent with dehydration related to the elevated BUN and generally slightly worsening kidney function. LFTs are increased, which do appear to have been a problem for the patient in the past. BNP elevated at 2540, which is higher than it has been in the past and at a value consistent with CHF. There are no pleural effusions or pulmonary congestion on her chest x-ray to suggest an acute CHF picture. Urinalysis consistent with infection. Patient was given a dose of Ceftriaxone. Patient admitted to medicine for failed outpatient management of the UTI, weakness, and failure to thrive. Undiagnosed new problem with uncertain prognosis? @ -None Drug Therapy requiring intensive monitoring for toxicity (Heparin, Nitro, Insulin, Cardizem)? @ -None Were any procedures done? @ -None Diagnosis/symptom? @ -UTI, weakness Acute, or Chronic, or Acute on Chronic? @ -Acute Uncomplicated (without systemic symptoms) or Complicated (systemic symptoms)? @ -Complicated Side effects of treatment? @ -None Exacerbation, Progression, or Severe Exacerbation] @ -Not applicable Poses a threat to life or bodily function? @ -Yes This case was discussed in detail with the attending ED physician, Dr. Villa. Presentation, findings, and treatment plan discussed in detail as well. - Lab Data Result diagrams: 08/28/22 20:00 08/28/22 20:00 Lab Results 08/28/22 08/28/22 08/28/22 Range/Units 19:50 20:00 20:00 WBC 6.0 (3.8-10.6) k/uL RBC 3.98 (3.80-5.40) m/uL Hgb 12.2 (11.4-16.0) gm/dL Hct 36.7 (34.0-46.0) % MCV 92.1 (80.0-100.0) fL MCH 30.7 (25.0-35.0) pg MCHC 33.3 (31.0-37.0) g/dL RDW 14.2 (11.5-15.5) % Plt Count 226 (150-450) k/uL MPV 8.8 Neutrophils % 76 % Lymphocytes % 8 % Monocytes % 7 % Eosinophils % 8 % Basophils % 0 % Neutrophils # 4.6 (1.3-7.7) k/uL Lymphocytes # 0.5 L (1.0-4.8) k/uL Monocytes # 0.4 (0-1.0) k/uL Eosinophils # 0.5 (0-0.7) k/uL Basophils # 0.0 (0-0.2) k/uL PT 10.3 (9.0-12.0) sec INR 1.0 (<1.2) APTT 24.8 (22.0-30.0) sec Sodium (137-145) mmol/L Potassium (3.5-5.1) mmol/L Chloride (98-107) mmol/L Carbon Dioxide (22-30) mmol/L Anion Gap mmol/L BUN (7-17) mg/dL Creatinine (0.52-1.04) mg/dL Est GFR (CKD-EPI)AfAm (>60 ml/min/1.73 sqM) Est GFR (CKD-EPI)NonAf (>60 ml/min/1.73 sqM) Glucose (74-99) mg/dL Plasma Lactic Acid Arley (0.7-2.0) mmol/L Calcium (8.4-10.2) mg/dL Phosphorus (2.5-4.5) mg/dL Magnesium (1.6-2.3) mg/dL Total Bilirubin (0.2-1.3) mg/dL AST (14-36) U/L ALT (4-34) U/L Alkaline Phosphatase (38-126) U/L Troponin I (0.000-0.034) ng/mL NT-Pro-B Natriuret Pep pg/mL Total Protein (6.3-8.2) g/dL Albumin (3.5-5.0) g/dL Urine Color Yellow Urine Appearance Cloudy H (Clear) Urine pH 6.0 (5.0-8.0) Ur Specific [place] 1.009 (1.001-1.035) Urine Protein Negative (Negative) Urine Glucose (UA) Negative (Negative) Urine Ketones Negative (Negative) Urine Blood Negative (Negative) Urine Nitrite Negative (Negative) Urine Bilirubin Negative (Negative) Urine Urobilinogen <2.0 (<2.0) mg/dL Ur Leukocyte Esterase Moderate H (Negative) Urine RBC 2 (0-5) /hpf Urine WBC 33 H (0-5) /hpf Ur Squamous Epith Cells 8 H (0-4) /hpf Urine Bacteria Many H (None) /hpf Hyaline Casts 4 H (0-2) /lpf Urine Mucus Rare H (None) /hpf 08/28/22 08/28/22 08/28/22 Range/Units 20:00 20:00 20:00 WBC (3.8-10.6) k/uL RBC (3.80-5.40) m/uL Hgb (11.4-16.0) gm/dL Hct (34.0-46.0) % MCV (80.0-100.0) fL MCH (25.0-35.0) pg MCHC (31.0-37.0) g/dL RDW (11.5-15.5) % Plt Count (150-450) k/uL MPV Neutrophils % % Lymphocytes % % Monocytes % % Eosinophils % % Basophils % % Neutrophils # (1.3-7.7) k/uL Lymphocytes # (1.0-4.8) k/uL Monocytes # (0-1.0) k/uL Eosinophils # (0-0.7) k/uL Basophils # (0-0.2) k/uL PT (9.0-12.0) sec INR (<1.2) APTT (22.0-30.0) sec Sodium 134 L (137-145) mmol/L Potassium 3.8 (3.5-5.1) mmol/L Chloride 95 L (98-107) mmol/L Carbon Dioxide 29 (22-30) mmol/L Anion Gap 10 mmol/L BUN 26 H (7-17) mg/dL Creatinine 1.17 H (0.52-1.04) mg/dL Est GFR (CKD-EPI)AfAm 48 (>60 ml/min/1.73 sqM) Est GFR (CKD-EPI)NonAf 42 (>60 ml/min/1.73 sqM) Glucose 147 H (74-99) mg/dL Plasma Lactic Acid Arley 1.2 (0.7-2.0) mmol/L Calcium 8.3 L (8.4-10.2) mg/dL Phosphorus 4.0 (2.5-4.5) mg/dL Magnesium 2.2 (1.6-2.3) mg/dL Total Bilirubin 0.4 (0.2-1.3) mg/dL AST 82 H (14-36) U/L ALT 84 H (4-34) U/L Alkaline Phosphatase 135 H (38-126) U/L Troponin I 0.014 (0.000-0.034) ng/mL NT-Pro-B Natriuret Pep pg/mL Total Protein 7.0 (6.3-8.2) g/dL Albumin 4.1 (3.5-5.0) g/dL Urine Color Urine Appearance (Clear) Urine pH (5.0-8.0) Ur Specific [place] (1.001-1.035) Urine Protein (Negative) Urine Glucose (UA) (Negative) Urine Ketones (Negative) Urine Blood (Negative) Urine Nitrite (Negative) Urine Bilirubin (Negative) Urine Urobilinogen (<2.0) mg/dL Ur Leukocyte Esterase (Negative) Urine RBC (0-5) /hpf Urine WBC (0-5) /hpf Ur Squamous Epith Cells (0-4) /hpf Urine Bacteria (None) /hpf Hyaline Casts (0-2) /lpf Urine Mucus (None) /hpf 08/28/22 Range/Units 20:00 WBC (3.8-10.6) k/uL RBC (3.80-5.40) m/uL Hgb (11.4-16.0) gm/dL Hct (34.0-46.0) % MCV (80.0-100.0) fL MCH (25.0-35.0) pg MCHC (31.0-37.0) g/dL RDW (11.5-15.5) % Plt Count (150-450) k/uL MPV Neutrophils % % Lymphocytes % % Monocytes % % Eosinophils % % Basophils % % Neutrophils # (1.3-7.7) k/uL Lymphocytes # (1.0-4.8) k/uL Monocytes # (0-1.0) k/uL Eosinophils # (0-0.7) k/uL Basophils # (0-0.2) k/uL PT (9.0-12.0) sec INR (<1.2) APTT (22.0-30.0) sec Sodium (137-145) mmol/L Potassium (3.5-5.1) mmol/L Chloride (98-107) mmol/L Carbon Dioxide (22-30) mmol/L Anion Gap mmol/L BUN (7-17) mg/dL Creatinine (0.52-1.04) mg/dL Est GFR (CKD-EPI)AfAm (>60 ml/min/1.73 sqM) Est GFR (CKD-EPI)NonAf (>60 ml/min/1.73 sqM) Glucose (74-99) mg/dL Plasma Lactic Acid Arley (0.7-2.0) mmol/L Calcium (8.4-10.2) mg/dL Phosphorus (2.5-4.5) mg/dL Magnesium (1.6-2.3) mg/dL Total Bilirubin (0.2-1.3) mg/dL AST (14-36) U/L ALT (4-34) U/L Alkaline Phosphatase (38-126) U/L Troponin I (0.000-0.034) ng/mL NT-Pro-B Natriuret Pep 2540 pg/mL Total Protein (6.3-8.2) g/dL Albumin (3.5-5.0) g/dL Urine Color Urine Appearance (Clear) Urine pH (5.0-8.0) Ur Specific [place] (1.001-1.035) Urine Protein (Negative) Urine Glucose (UA) (Negative) Urine Ketones (Negative) Urine Blood (Negative) Urine Nitrite (Negative) Urine Bilirubin (Negative) Urine Urobilinogen (<2.0) mg/dL Ur Leukocyte Esterase (Negative) Urine RBC (0-5) /hpf Urine WBC (0-5) /hpf Ur Squamous Epith Cells (0-4) /hpf Urine Bacteria (None) /hpf Hyaline Casts (0-2) /lpf Urine Mucus (None) /hpf - Radiology Data Radiology results: report reviewed, image reviewed Disposition Clinical Impression: UTI (urinary tract infection), Weakness Disposition: ADMITTED IP TO THIS HOSP
[2022-08-28 20:14] LABS: Basophils % (A) 0 %; Eosinophils # (A) 0.5 k/uL (0-0.7); Eosinophils % (A) 8 %; HCT 36.7 % (34.0-46.0); HGB 12.2 gm/dL (11.4-16.0); Lymphocytes # (A) 0.5 k/uL (1.0-4.8); Lymphocytes % (A) 8 %; MCH 30.7 pg (25.0-35.0); MCHC 33.3 g/dL (31.0-37.0); MCV 92.1 fL (80.0-100.0); Mean Platelet Volume 8.8; Monocytes # (A) 0.4 k/uL (0-1.0); Monocytes % (A) 7 %; Neutrophils # (A) 4.6 k/uL (1.3-7.7); Neutrophils % (A) 76 %; Platelet Count 226 k/uL (150-450); RBC 3.98 m/uL (3.80-5.40); RDW 14.2 % (11.5-15.5)
[2022-08-28 20:25] LABS: Albumin 4.1 g/dL (3.5-5.0); Calcium 8.3 mg/dL (8.4-10.2); Magnesium 2.2 mg/dL (1.6-2.3); Potassium 3.8 mmol/L (3.5-5.1); Total Bilirubin 0.4 mg/dL (0.2-1.3)
[2022-08-28 20:25] LABS: Appearance,Urine Cloudy (Clear); Bacteria,Urine Many /hpf; Bilirubin,Urine Negative (Negative); Blood,Urine Negative (Negative); Color,Urine Yellow; Glucose,Urine (UA) Negative (Negative); Hyaline Casts,Urine 4 /lpf (0-2); Ketones,Urine Negative (Negative); Leukocyte Esterase,Urine Moderate (Negative); Mucus,Urine Rare /hpf; Nitrite,Urine Negative (Negative); Protein,Urine Negative (Negative); RBC,Urine 2 /hpf (0-5); Specific Gravity,Urine 1.009 (1.001-1.035); Squamous Epithelial Cell,Urine 8 /hpf (0-4); Urobilinogen,Urine <2.0 mg/dL (<2.0); WBC,Urine 33 /hpf (0-5)
[2022-08-28 20:31] LABS: Partial Thromboplastin Time 24.8 sec (22.0-30.0); Prothrombin Time 10.3 sec (9.0-12.0)
--- NOTE | 2022-08-28 21:14 | XR ---
EXAMINATION TYPE: XR chest 2V DATE OF EXAM: 08/28/2022 COMPARISON: 08/06/2021 HISTORY: Weakness TECHNIQUE: 2 views FINDINGS: Heart is enlarged. No heart failure. This coarsening of the interstitial markings. Thoracic aorta is atheromatous. 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 Unchanged. IMPRESSION: Cardiomegaly. Pulmonary fibrosis. No change compared to old exam. No pleural definite flu id seen to suggest heart failure.
[2022-08-28] MEDS ORDERED: ONDANSETRON 4 MG/2 ML VIAL IVP PRN (22:31)
[2022-08-28] MEDS ORDERED: NALOXONE 0.4 MG/ML 1 ML VIAL IV PRN (22:31)
[2022-08-28] MEDS ORDERED: cefTRIAXone IN SWFI 1,000 MG/10 ML SYRINGE IVP STA (22:32)
[2022-08-28] MEDS ORDERED: ACETAMINOPHEN TAB 500 MG TAB PO PRN (22:35)
[2022-08-29] MEDS: amLODIPine 5 MG TAB PO SCH (08:22)
[2022-08-29] MEDS: APIXABAN 2.5 MG TABLET PO SCH ×2 (08:22→20:14)
[2022-08-29] MEDS: POTASSIUM CHLORIDE ER 20 MEQ TAB.ER PO SCH (08:22)
[2022-08-29] MEDS: PANTOPRAZOLE 40 MG TABLET PO SCH (08:22)
[2022-08-29] MEDS: OXcarbazepine 150 MG TAB PO SCH ×2 (08:22→20:14)
[2022-08-29] MEDS: buPROPion 75 MG TAB PO SCH (08:22)
[2022-08-29] MEDS: CITALOPRAM HYDROBROMIDE 20 MG TAB PO SCH (08:23)
[2022-08-29] MEDS: FUROSEMIDE 40 MG TAB PO SCH ×2 (08:23→17:46)
[2022-08-29] MEDS ORDERED: LOPERAMIDE 2 MG CAP PO PRN (09:00)
--- NOTE | 2022-08-29 17:13 | P.HPIM ---
History of Present Illness H&P Date: 08/29/22 Chief Complaint: Change in AMS, increased confusion This is an 87-year-old female resident of [facility] assisted living with past medical history of atrial fibrillation, gastroesophageal reflux disease, hypertension, osteoarthritis, diabetes mellitus, recurrent UTIs, seizure disorder and multiple other medical issues, brought into the hospital with increased confusion, increased weakness. Last week on 08/24/22, began Macrobid outpatient for UTI. Family and [facility] staff concerned as patient has not shown any improvement but appears to have increasing confusion and weakness. Patient was brought into the ER by EMS. Alert and oriented to person and place, recognized Dr. Torrez PCP. Afebrile, normal WBC. Hemoglobin 12.2, platelets 226, INR 1, sodium 134, potassium 3.8, bicarb 29, BUN 26, creatinine 1.17 glucose 147 lactic acid 1.2 magnesium 2.2, AST 82, ALT 84 alk phos 135. Prior BNP 2540. UA reporting many bacteria 33 urine WBCs, moderate leukocytes, negative nitrates. Urine culture pending. IV ceftriaxone initiated. Review of Systems ROS unobtainable due to patients medical condition Past Medical History Past Medical History: Atrial Fibrillation, Cancer, GERD/Reflux, Hypertension, Osteoarthritis (OA), Thyroid Disorder Additional Past Medical History / Comment(s): States irregular heart beat, Varicose Veins, Hx of 3 doses of radioactive iodine for Thyroid tx"for over active thyroid"., HX of a fall -2016,"headaches", pancreatitis, sinus infections, past gout, cataracts(sx done), hiatal hernia, uterine cancer >25 years ago(sx only), uti History of Any Multi-Drug Resistant Organisms: None Reported Past Surgical History: Cholecystectomy, Hysterectomy, Joint Replacement, Orthopedic Surgery, Tonsillectomy Additional Past Surgical History / Comment(s): PARTIAL LEFT HIP AND THEN TOTAL LEFT HIP., RIGHT CATARACT ([facility]). cataract BL Past Anesthesia/Blood Transfusion Reactions: No Reported Reaction Past Psychological History: Anxiety Smoking Status: Never smoker Past Alcohol Use History: None Reported Past Drug Use History: None Reported - Past Family History Sister(s) Family Medical History: Cancer Mother Additional Family Medical History / Comment(s): graves disease. comiited suicide in 1941 Father Family Medical History: Myocardial Infarction ([place]) Medications and Allergies Home Medications Medication Instructions Recorded Confirmed Type Apixaban [Eliquis] 2.5 mg PO BID 11/04/20 08/28/22 History Omeprazole 20 mg PO DAILY 12/03/20 08/28/22 History Acetaminophen Tab [Tylenol] 1,000 mg PO BID PRN 08/28/22 08/28/22 History Cetirizine HCl 10 mg PO HS 08/28/22 08/28/22 History Citalopram Hydrobromide [CeleXA] 20 mg PO DAILY 08/28/22 08/28/22 History Donepezil [Aricept] 10 mg PO HS 08/28/22 08/28/22 History Furosemide [Lasix] 40 mg PO BID@0900,1600 08/28/22 08/28/22 History Loperamide HCl [Loperamide] 2 - 4 mg PO QID PRN 08/28/22 08/28/22 History Mupirocin 2% Oint [Bactroban 2% 1 applic TOPICAL BID PRN 08/28/22 08/28/22 History Oint] Nitrofurantoin Monohyd/M-Cryst 100 mg PO BID 08/28/22 08/28/22 History [Macrobid] OXcarbazepine [Trileptal] 150 mg PO BID 08/28/22 08/28/22 History Potassium Chloride ER [K-Dur 20] 20 meq PO DAILY 08/28/22 08/28/22 History amLODIPine [Norvasc] 5 mg PO DAILY 08/28/22 08/28/22 History buPROPion [Wellbutrin] 75 mg PO DAILY 08/28/22 08/28/22 History Allergies Allergy/AdvReac Type Severity Reaction Status Date / Time nitrofurantoin Allergy Unknown Itching Verified 08/28/22 19:49 [From Macrobid] rofecoxib [From Vioxx] Allergy Unknown Hypertensio Verified 08/28/22 19:49 n sertraline [From Zoloft] Allergy Unknown Rash/Hives Verified 08/28/22 19:49 shellfish derived [Shellfish] AdvReac Severe Nausea & Verified 08/28/22 19:49 Vomiting, Very Ill. celecoxib [From Celebrex] AdvReac Unknown Loss of Verified 08/28/22 19:49 Balance iodine AdvReac Nausea & Verified 08/28/22 19:49 Vomiting Physical Exam Vitals: Vital Signs Temp Pulse Pulse Pulse Resp BP BP 08/29/22 14:20 98.4 F 76 19 102/60 08/29/22 08:12 98.2 F 89 19 136/66 08/29/22 00:59 80 18 08/29/22 00:42 98.6 F 85 18 136/77 08/28/22 21:59 90 18 144/93 08/28/22 19:13 98.2 F 74 18 130/72 Pulse Ox 08/29/22 14:20 96 08/29/22 08:12 96 08/29/22 00:59 08/29/22 00:42 97 08/28/22 21:59 99 08/28/22 19:13 97 Intake and Output 08/29/22 08/29/22 08/29/22 06:59 14:59 22:59 Intake Total 118 Output Total 400 Balance -400 118 Intake: Oral 118 Output: Urine 400 Other: Voiding Method Diaper Incontinent External Catheter # Voids 1 Weight 90.718 kg PHYSICAL EXAM: VITAL SIGNS: As above GENERAL: Sitting up in bed, no acute distress. Mentation slower compared to baseline per PCP. HEENT: Conjunctivae normal. eyes normal. NECK: Supple, No JVD. No thyroid enlargement. No LNs CARDIOVASCULAR: S1, S2 regular. Irregular, No murmur RESPIRATION: Breath sounds diminished in the bases. No rhonchi or crackles. No bronchial breathing. ABDOMEN: Soft, nontender . No guarding. no masses palpable. No ascites, No hepatosplenomegaly.Bowel sounds heard. LEGS: Bilateral lower extremity edema, left lower extremity cellulitis PSYCHIATRY: Alert and oriented X2, alert and oriented to person and place ,mood and affect normal. NERVOUS SYSTEM: Cranial N 2-12 grossly normal.Diffuse weakness,No focal deficits. Strength and sensation grossly intact.. Skin: warm and dry, redness in bilateral upper extremity antecubital areas. Results CBC & Chem 7: 08/28/22 20:00 08/28/22 20:00 Labs: Abnormal Lab Results - Last 24 Hours (Table) 08/28/22 08/28/22 08/28/22 Range/Units 19:50 20:00 20:00 Lymphocytes # 0.5 L (1.0-4.8) k/uL Sodium 134 L (137-145) mmol/L Chloride 95 L (98-107) mmol/L BUN 26 H (7-17) mg/dL Creatinine 1.17 H (0.52-1.04) mg/dL Glucose 147 H (74-99) mg/dL Calcium 8.3 L (8.4-10.2) mg/dL AST 82 H (14-36) U/L ALT 84 H (4-34) U/L Alkaline Phosphatase 135 H (38-126) U/L Urine Appearance Cloudy H (Clear) Ur Leukocyte Esterase Moderate H (Negative) Urine WBC 33 H (0-5) /hpf Ur Squamous Epith Cells 8 H (0-4) /hpf Urine Bacteria Many H (None) /hpf Hyaline Casts 4 H (0-2) /lpf Urine Mucus Rare H (None) /hpf Microbiology - Last 24 Hours (Table) 08/28/22 19:50 Urine Culture - Preliminary Urine,Voided Assessment and Plan Assessment: Acute metabolic encephalopathy related to possible acute UTI, in a patient with recurrent UTIs and recently diagnosed UTI this past week, failed outpatient treatment. Underlying cognitive impairment, dementia-mild Dehydration Cellulitis left lower extremity CHronic renal failure failure,stage III Hx of seizure disorder, Keppra discontinued and changed to Vimpat previously as per neurology secondary to sleepiness. Chronic atrial fibrillation, anticoagulated on Eliquis History of TIA Gastroesophageal reflux disease Essential hypertension Diabetes mellitus type 2, uncontrolled, hyperglycemic, hemoglobin A1c ordered, pending. Osteoarthritis Plan: Continue on current medication regime ,monitoring and symptomatic treatment. IV antibiotics. Local wound care of left lower extremity with Silvadene cream/dressing/Avila wrap. Close monitoring of electrolytes, renal function with repeat labs ordered for a.m. PT/OT consulted. The impression and plan of care has been dictated as directed. : I performed a history and examination of this patient, discussed the same with the dictator. I agree with the dictator's note ,documented as a scribe. Any additional findings or plans will be noted.
[2022-08-29] MEDS: NYSTATIN 100,000 UNIT/GM POWD 15 GM TOPICAL SCH ×2 (17:46→20:15)
[2022-08-29] MEDS: DONEPEZIL 10 MG TAB PO SCH (20:14)
[2022-08-29] MEDS: LORATADINE 10 MG TAB PO SCH (20:14)
[2022-08-30] MEDS: APIXABAN 2.5 MG TABLET PO SCH ×2 (07:47→20:14)
[2022-08-30] MEDS: POTASSIUM CHLORIDE ER 20 MEQ TAB.ER PO SCH (07:47)
[2022-08-30] MEDS: PANTOPRAZOLE 40 MG TABLET PO SCH (07:47)
[2022-08-30] MEDS: CITALOPRAM HYDROBROMIDE 20 MG TAB PO SCH (07:47)
[2022-08-30] MEDS: FUROSEMIDE 40 MG TAB PO SCH ×2 (07:47→15:25)
[2022-08-30] MEDS: amLODIPine 5 MG TAB PO SCH (07:48)
[2022-08-30] MEDS: buPROPion 75 MG TAB PO SCH (07:48)
[2022-08-30] MEDS: NYSTATIN 100,000 UNIT/GM POWD 15 GM TOPICAL SCH ×3 (07:48→20:14)
[2022-08-30] MEDS: SILVER sulfADIAZINE Cream 400 GM 1 APPLIC APPLIC TOPICAL SCH (07:48)
[2022-08-30] MEDS: OXcarbazepine 150 MG TAB PO SCH ×2 (07:48→20:14)
[2022-08-30 11:13] LABS: Basophils # (A) 0.03 X 10*3/uL (0.00-0.10); Basophils % (A) 0.5 %; Eosinophils % (A) 5.5 %; HCT 34.6 % (37.2-46.3); HGB 11.4 g/dL (12.0-15.0); Immature Grans, Automated 0.4 %; Lymphocytes # (A) 0.44 X 10*3/uL (0.90-5.00); MCHC 32.9 g/dL (32.0-37.0); Mean Platelet Volume 12.1 fL (9.5-12.2); Monocytes # (A) 0.64 X 10*3/uL (0.20-1.00); Monocytes % (A) 11.6 %; NRBC Per 100 WBC 0 /100 WBCS (0.0-0.0); Neutrophils # (A) 4.07 X 10*3/uL (1.80-7.70); Platelet Count 216 X 10*3/uL (140-440); RBC 3.68 X 10*6/uL (4.10-5.20); RDW 14.7 % (11.5-14.5)
[2022-08-30 11:22] LABS: African American GFR (CKD) 46.7 (60.0-200.0); Anion Gap 13.6 mmol/L (10.00-18.00); BUN/Creat Ratio 15.33 Ratio (12.00-20.00); Blood Urea Nitrogen 18.4 mg/dL (9.0-27.0); Calcium 8.4 mg/dL (8.7-10.3); Carbon Dioxide 24.4 mmol/L (20.0-27.5); Non-African American GFR(CKD) 40.3 (60.0-200.0); Potassium 3.6 mmol/L (3.5-5.5)
--- NOTE | 2022-08-30 14:37 | P.PN ---
Subjective Progress Note Date: 08/30/22 H&P Date: 08/29/22 Chief Complaint: Change in AMS, increased confusion This is an 87-year-old female resident of [facility] assisted living with past medical history of atrial fibrillation, gastroesophageal reflux disease, hypertension, osteoarthritis, diabetes mellitus, recurrent UTIs, seizure disorder and multiple other medical issues, brought into the hospital with increased confusion, increased weakness. Last week on 08/24/22, began Macrobid outpatient for UTI. Family and [facility] staff concerned as patient has not shown any improvement but appears to have increasing confusion and weakness. Patient was brought into the ER by EMS. Alert and oriented to person and place, recognized Dr. Torrez PCP. Afebrile, normal WBC. Hemoglobin 12.2, platelets 226, INR 1, sodium 134, potassium 3.8, bicarb 29, BUN 26, creatinine 1.17 glucose 147 lactic acid 1.2 magnesium 2.2, AST 82, ALT 84 alk phos 135. Prior BNP 2540. UA reporting many bacteria 33 urine WBCs, moderate leukocytes, negative nitrates. Urine culture pending. IV ceftriaxone initiated. 08/30/2022 during the night complained of itching of her bilateral arms, received Benadryl and currently resting. This a.m., arms significantly improving decreased redness, actually pink in the antecubital areas with skin intact. Maintained on IV antibiotics of ceftriaxone. Urine culture reporting gram-negative bacilli.Required Bonilla insertion last night for urinary retention. Afebrile, normal WBC. Renal function improving, BUN 18.4, creatinine 1.2. Maintaining O2 sats in the mid 90s on room air. Denies chest pain, palpitations or shortness of breath. Objective - Vital Signs Vital signs: Vital Signs Temp 97.8 F 08/30/22 07:44 Pulse 85 08/30/22 07:44 Resp 16 08/30/22 07:44 BP 131/78 08/30/22 07:44 Pulse Ox 93 L 08/30/22 07:44 FiO2 Intake & Output 08/29/22 08/30/22 08/30/22 18:59 06:59 18:59 Intake Total 118 118 Output Total 625 1150 Balance -507 -1150 118 Intake: Oral 118 118 Output: Urine 625 1150 Straight 700 Other: Voiding Method Incontinent Incontinent Indwelling Catheter External Catheter - Exam PHYSICAL EXAM: VITAL SIGNS: As above GENERAL: Alert and oriented [address] ,Sitting up in bed, no acute distress. HEENT: Conjunctivae normal. eyes normal. NECK: Supple, No JVD. CARDIOVASCULAR: S1, S2 regular. Irregular, No murmur RESPIRATION: Unlabored, essentially clear to auscultation with breath sounds diminished in the bases. ABDOMEN: Soft, nontender . No guarding. no masses palpable. +Bowel sounds. LEGS: Bilateral lower extremity edema, left lower extremity [place] wrapped-clean dry and intact NERVOUS SYSTEM: Cranial N 2-12 grossly normal.Diffuse weakness,No focal deficits. Strength and sensation grossly intact.. Skin: warm and dry, [place] bilateral upper extremity antecubital areas. - Labs CBC & Chem 7: 08/30/22 05:58 08/30/22 05:58 Labs: Abnormal Lab Results - Last 24 Hours (Table) 08/30/22 08/30/22 Range/Units 05:58 05:58 RBC 3.68 L (4.10-5.20) X 10*6/uL Hgb 11.4 L (12.0-15.0) g/dL Hct 34.6 L (37.2-46.3) % RDW 14.7 H (11.5-14.5) % Lymphocytes # 0.44 L (0.90-5.00) X 10*3/uL Est GFR (CKD-EPI)AfAm 46.7 L (60.0-200.0) Est GFR (CKD-EPI)NonAf 40.3 L (60.0-200.0) Glucose 113 H (70-110) mg/dL Calcium 8.4 L (8.7-10.3) mg/dL Microbiology - Last 24 Hours (Table) 08/28/22 19:50 Urine Culture - Preliminary Urine,Voided Gram Neg Bacilli 08/28/22 23:30 Blood Culture - Preliminary Blood No Growth after 24 hours Assessment and Plan Assessment: Acute metabolic encephalopathy related to acute UTI, gram-negative bacilli, 50-100,000 colonies, in a patient with recurrent UTIs and recently diagnosed UTI this past week, failed outpatient treatment. Acute urinary retention, requiring Bonilla catheter Underlying cognitive impairment, dementia-mild Dehydration Cellulitis left lower extremity CHronic renal failure failure,stage III Hx of seizure disorder, Keppra discontinued and changed to Vimpat previously as per neurology secondary to sleepiness. Chronic atrial fibrillation, anticoagulated on Eliquis History of TIA Gastroesophageal reflux disease Essential hypertension Diabetes mellitus type 2, uncontrolled, hyperglycemic, hemoglobin A1c ordered, pending. Osteoarthritis Plan: Continue on current medication regime ,monitoring and symptomatic treatment. IV antibiotics. Culture finalizing. Flomax added to med regimen. Maintain Local wound care as ordered. Close monitoring of electrolytes, renal function with repeat labs ordered for a.m. evaluated by physical therapy, reporting patient is a moderate assist-2 people with subacute rehab recommended at discharge. The impression and plan of care has been dictated as directed. : I performed a history and examination of this patient, discussed the same with the dictator. I agree with the dictator's note ,documented as a scribe. Any additional findings or plans will be noted.
[2022-08-30] MEDS: TAMSULOSIN 0.4 MG CAP.ER.24H PO SCH (15:25)
[2022-08-30 16:30] VITALS: RESP 18
[2022-08-30] MEDS: LORATADINE 10 MG TAB PO SCH (20:14)
[2022-08-30] MEDS: DONEPEZIL 10 MG TAB PO SCH (20:14)
[2022-08-31] MEDS: TAMSULOSIN 0.4 MG CAP.ER.24H PO SCH (08:17)
[2022-08-31] MEDS: CITALOPRAM HYDROBROMIDE 20 MG TAB PO SCH (08:17)
[2022-08-31] MEDS: buPROPion 75 MG TAB PO SCH (08:17)
[2022-08-31] MEDS: amLODIPine 5 MG TAB PO SCH (08:17)
[2022-08-31] MEDS: FUROSEMIDE 40 MG TAB PO SCH (08:17)
[2022-08-31] MEDS: PANTOPRAZOLE 40 MG TABLET PO SCH (08:17)
[2022-08-31] MEDS: APIXABAN 2.5 MG TABLET PO SCH (08:17)
[2022-08-31] MEDS: POTASSIUM CHLORIDE ER 20 MEQ TAB.ER PO SCH (08:17)
[2022-08-31] MEDS: OXcarbazepine 150 MG TAB PO SCH (08:18)
[2022-08-31 08:19] VITALS: BP 121/73; PULSE 82; TEMP 98.3
[2022-08-31] MEDS: NYSTATIN 100,000 UNIT/GM POWD 15 GM TOPICAL SCH (08:28)
[2022-08-31] MEDS: SILVER sulfADIAZINE Cream 400 GM 1 APPLIC APPLIC TOPICAL SCH (08:29)
[2022-08-31] MEDS ORDERED: CEFDINIR 300 MG CAP PO SCH (10:00)
[2022-08-31 10:31] LABS: African American GFR (CKD) 46.7 (60.0-200.0); BUN/Creat Ratio 14.17 Ratio (12.00-20.00); Calcium 8.5 mg/dL (8.7-10.3); Non-African American GFR(CKD) 40.3 (60.0-200.0); Potassium 3.6 mmol/L (3.5-5.5)
--- NOTE | 2022-09-01 11:18 | P.DS ---
Providers Date of admission: 08/28/22 21:33 Expected date of discharge: 08/31/22 Attending physician: Yrn Torrez Primary care physician: Yrn Torrez [facility] Course: Final Diagnoses: Acute metabolic encephalopathy related to acute UTI, gram-negative bacilli, 50- 100,000 colonies, in a patient with recurrent UTIs and recently diagnosed UTI this past week, failed outpatient treatment. Final culture pending with results to be faxed to PCPs office Acute urinary retention, status post Bonilla catheter, placed on Flomax. Underlying cognitive impairment, dementia-mild Dehydration, improved. Cellulitis left lower extremity CHronic renal failure failure,stage III Hx of seizure disorder, Keppra discontinued and changed to Vimpat previously as per neurology secondary to sleepiness. Chronic atrial fibrillation, anticoagulated on Eliquis History of TIA Gastroesophageal reflux disease Essential hypertension Diabetes mellitus type 2, A1c 5.9 Osteoarthritis Hospital course:Chief Complaint: Change in AMS, increased confusion This is an 87-year-old female resident of [facility] assisted living with past medical history of atrial fibrillation, gastroesophageal reflux disease, hypertension, osteoarthritis, diabetes mellitus, recurrent UTIs, seizure disorder and multiple other medical issues, brought into the hospital with increased confusion, increased weakness. Last week on 08/24/22, began Macrobid outpatient for UTI. Family and [facility] staff concerned as patient has not shown any improvement but appears to have increasing confusion and weakness. Patient was brought into the ER by EMS. Alert and oriented to person and place, recognized Dr. Torrez PCP. Afebrile, normal WBC. Hemoglobin 12.2, platelets 226, INR 1, sodium 134, potassium 3.8, bicarb 29, BUN 26, creatinine 1.17 glucose 147 lactic acid 1.2 magnesium 2.2, AST 82, ALT 84 alk phos 135. Prior BNP 2540. UA reporting many bacteria 33 urine WBCs, moderate leukocytes, negative nitrates. Urine culture pending. IV ceftriaxone initiated. 08/30/2022 during the night complained of itching of her bilateral arms, received Benadryl and currently resting. This a.m., arms significantly improving decreased redness, actually pink in the antecubital areas with skin intact. Maintained on IV antibiotics of ceftriaxone. Urine culture reporting gram-negative bacilli.Required Bonilla insertion last night for urinary retention. Afebrile, normal WBC. Renal function improving, BUN 18.4, creatinine 1.2. Maintaining O2 sats in the mid 90s on room air. Denies chest pain, palpitations or shortness of breath. Significant clinical improvement. Patient will be discharged to [facility], in a stable condition with guarded prognosis. Daughter states patient not only has her spouse, but also [facility] staff to assist her. Discharged on cefdnir. Final urine culture pending, results to be faxed to PCP. Denies chest pain, palpitations or shortness of breath. Denies lightheadedness dizziness or focal deficits. The impression and plan of care has been dictated as directed. : I performed a history and examination of this patient, discussed the same with the dictator. I agree with the dictator's note ,documented as a scribe. Any additional findings or plans will be noted. Patient Condition at Discharge: Stable Plan - Discharge Summary New Discharge Prescriptions: New Nystatin 100,000 Unit/gm Powd [Mycostatin Powder] 1 applic TOPICAL TID each Tamsulosin [Flomax] 0.4 mg PO PC-BRKFST #14 cap Cefdinir [Omnicef] 300 mg PO BID 5 Days #10 cap SILVER sulfADIAZINE Cream [Silvadene 1% Cream] 1 applic TOPICAL DAILY each Continue Potassium Chloride ER [K-Dur 20] 20 meq PO DAILY Donepezil [Aricept] 10 mg PO HS Cetirizine HCl 10 mg PO HS Apixaban [Eliquis] 2.5 mg PO BID Omeprazole 20 mg PO DAILY Acetaminophen Tab [Tylenol] 1,000 mg PO BID PRN PRN Reason: Pain Loperamide HCl [Loperamide] 2 - 4 mg PO QID PRN PRN Reason: Diarrhea OXcarbazepine [Trileptal] 150 mg PO BID Furosemide [Lasix] 40 mg PO BID@0900,1600 Citalopram Hydrobromide [CeleXA] 20 mg PO DAILY buPROPion [Wellbutrin] 75 mg PO DAILY amLODIPine [Norvasc] 5 mg PO DAILY Discontinued Mupirocin 2% Oint [Bactroban 2% Oint] 1 applic TOPICAL BID PRN PRN Reason: skin tears Nitrofurantoin Monohyd/M-Cryst [Macrobid] 100 mg PO BID Discharge Medication List Apixaban [Eliquis] 2.5 mg PO BID 11/04/20 [History] Omeprazole 20 mg PO DAILY 12/03/20 [History] Acetaminophen Tab [Tylenol] 1,000 mg PO BID PRN 08/28/22 [History] Cetirizine HCl 10 mg PO HS 08/28/22 [History] Citalopram Hydrobromide [CeleXA] 20 mg PO DAILY 08/28/22 [History] Donepezil [Aricept] 10 mg PO HS 08/28/22 [History] Furosemide [Lasix] 40 mg PO BID@0900,1600 08/28/22 [History] Loperamide HCl [Loperamide] 2 - 4 mg PO QID PRN 08/28/22 [History] OXcarbazepine [Trileptal] 150 mg PO BID 08/28/22 [History] Potassium Chloride ER [K-Dur 20] 20 meq PO DAILY 08/28/22 [History] amLODIPine [Norvasc] 5 mg PO DAILY 08/28/22 [History] buPROPion [Wellbutrin] 75 mg PO DAILY 08/28/22 [History] Cefdinir [Omnicef] 300 mg PO BID 5 Days #10 cap 08/31/22 [Rx] Nystatin 100,000 Unit/gm Powd [Mycostatin Powder] 1 applic TOPICAL TID each 08/31/22 [Rx] SILVER sulfADIAZINE Cream [Silvadene 1% Cream] 1 applic TOPICAL DAILY each 08/31/22 [Rx] Tamsulosin [Flomax] 0.4 mg PO PC-BRKFST #14 cap 08/31/22 [Rx] Follow up Appointment(s)/Referral(s): Yrn Torrez DO [Primary Care Provider] - 09/07/22 10:20 am Ambulatory/Diagnostic Orders: Basic Metabolic Panel [LAB.AMB] Time Frame: 3 Days, Location: None Selected Patient Instructions/Handouts: Urinary Tract Infection in Women (DC) Activity/Diet/Wound Care/Special Instructions: Fax final urine culture results to PCP, Dr. Yrn Torrez Discharge Disposition: HOME SELF-CARE
== END 2022-08-31 13:49 | disposition home or self-care (01) | DRG 689 ==
LOC: EC 19:05 → 4SSUR 21:33
PROVIDERS: ADMIT Family Medicine; ATTEND Family Medicine
DX: N39.0 Urinary tract infection, site not specified (principal); G93.41 Metabolic encephalopathy; F03.A4 Unspecified dementia, mild, with anxiety; I48.20 Chronic atrial fibrillation, unspecified; L03.116 Cellulitis of left lower limb; I13.0 Hypertensive heart and chronic kidney disease with heart failure and stage 1 through stage 4 chronic kidney disease, or unspecified chronic kidney disease; E86.0 Dehydration; G40.909 Epilepsy, unspecified, not intractable, without status epilepticus; I50.9 Heart failure, unspecified; K21.9 Gastro-esophageal reflux disease without esophagitis; L29.9 Pruritus, unspecified; M19.90 Unspecified osteoarthritis, unspecified site; N18.30 Chronic kidney disease, stage 3 unspecified; R62.7 Adult failure to thrive; K44.9 Diaphragmatic hernia without obstruction or gangrene; M10.9 Gout, unspecified; R33.9 Retention of urine, unspecified; B96.89 Other specified bacterial agents as the cause of diseases classified elsewhere; E11.22 Type 2 diabetes mellitus with diabetic chronic kidney disease; Z79.01 Long term (current) use of anticoagulants; Z79.899 Other long term (current) drug therapy; Z82.49 Family history of ischemic heart disease and other diseases of the circulatory system; Z85.42 Personal history of malignant neoplasm of other parts of uterus; Z86.73 Personal history of transient ischemic attack (TIA), and cerebral infarction without residual deficits; Z87.440 Personal history of urinary (tract) infections; Z90.710 Acquired absence of both cervix and uterus; Z96.642 Presence of left artificial hip joint; Z88.8 Allergy status to other drugs, medicaments and biological substances; Z88.1 Allergy status to other antibiotic agents; Z91.013 Allergy to seafood; Z91.81 History of falling
CPT/HCPCS: 36415; 71046; 80048; 80053; 81001; 83605; 83735; 83880; 84100; 84484; 85025; 85610; 85730; 87040; 87077; 87086; 87186; 93005; 96374; 99285

== ENCOUNTER 2022-09-25 20:47 | Observation (INO) | payer MEDICARE ==
--- NOTE | 2022-09-25 21:42 | ED ---
General Adult HPI - General Chief complaint: Altered Mental Status Stated complaint: Altered Mental Status Time Seen by Provider: 09/25/22 21:03 Source: patient, RN notes reviewed, old records reviewed Mode of arrival: EMS Limitations: no limitations - History of Present Illness Initial comments: 87-year-old female presenting with increased weakness. History of dementia. History is per obtained from both the daughter and the patient. She does compl ain of a headache. She's had increased weakness which is been present only today. No reported fever. No vomiting. No chest pain or abdominal pain. No focal numbness or weakness. - Related Data Home Medications Medication Instructions Recorded Confirmed Apixaban [Eliquis] 2.5 mg PO BID 11/04/20 09/25/22 Omeprazole 20 mg PO DAILY 12/03/20 09/25/22 Acetaminophen Tab [Tylenol] 1,000 mg PO BID PRN 08/28/22 09/25/22 Cetirizine HCl 10 mg PO HS 08/28/22 09/25/22 Citalopram Hydrobromide [CeleXA] 20 mg PO DAILY 08/28/22 09/25/22 Donepezil [Aricept] 10 mg PO HS 08/28/22 09/25/22 Furosemide [Lasix] 40 mg PO BID@0900,1600 08/28/22 09/25/22 Loperamide HCl [Loperamide] 2 - 4 mg PO QID PRN 08/28/22 09/25/22 OXcarbazepine [Trileptal] 150 mg PO BID 08/28/22 09/25/22 Potassium Chloride ER [K-Dur 20] 20 meq PO SUTUTHSA 08/28/22 09/25/22 amLODIPine [Norvasc] 5 mg PO DAILY 08/28/22 09/25/22 buPROPion [Wellbutrin] 75 mg PO DAILY 08/28/22 09/25/22 Potassium Chloride ER [K-Dur 20] 40 meq PO MOWEFR 09/25/22 09/25/22 Allergies Allergy/AdvReac Type Severity Reaction Status Date / Time nitrofurantoin Allergy Unknown Itching Verified 09/25/22 22:43 [From Macrobid] rofecoxib [From Vioxx] Allergy Unknown Hypertensio Verified 09/25/22 22:43 n sertraline [From Zoloft] Allergy Unknown Rash/Hives Verified 09/25/22 22:43 shellfish derived [Shellfish] AdvReac Severe Nausea & Verified 09/25/22 22:43 Vomiting, Very Ill. celecoxib [From Celebrex] AdvReac Unknown Loss of Verified 09/25/22 22:43 Balance iodine AdvReac Nausea & Verified 09/25/22 22:43 Vomiting Review of Systems ROS Statement: Those systems with pertinent positive or pertinent negative responses have been documented in the HPI. ROS Other: All systems not noted in ROS Statement are negative. Past Medical History Past Medical History: Atrial Fibrillation, Cancer, GERD/Reflux, Hypertension, Os teoarthritis (OA), Thyroid Disorder Additional Past Medical History / Comment(s): States irregular heart beat, Varicose Veins, Hx of 3 doses of radioactive iodine for Thyroid tx"for over active thyroid"., HX of a fall ,"headaches", pancreatitis, sinus infections, past gout, cataracts(sx done), hiatal hernia, uterine cancer >25 years ago(sx only), uti History of Any Multi-Drug Resistant Organisms: None Reported Past Surgical History: Cholecystectomy, Hysterectomy, Joint Replacement, Orthopedic Surgery, Tonsillectomy Additional Past Surgical History / Comment(s): PARTIAL LEFT HIP AND THEN TOTAL LEFT HIP., RIGHT CATARACT ([facility] cataract BL Past Anesthesia/Blood Transfusion Reactions: No Reported Reaction Past Psychological History: Anxiety Smoking Status: Never smoker Past Alcohol Use History: None Reported Past Drug Use History: None Reported - Past Family History Sister(s) Family Medical History: Cancer Mother Additional Family Medical History / Comment(s): graves disease. comiited suicide in 1941 Father Family Medical History: Myocardial Infarction ([place]) General Exam Limitations: no limitations General appearance: alert, in no apparent distress Head exam: Present: atraumatic, normocephalic Eye exam: Present: normal appearance. Absent: PERRL (Pupils are pinpoint and sluggish) ENT exam: Present: mucous membranes dry Neck exam: Present: normal inspection. Absent: tenderness, meningismus Respiratory exam: Present: normal lung sounds bilaterally. Absent: respiratory distress Cardiovascular Exam: Present: regular rate, normal rhythm GI/Abdominal exam: Present: soft. Absent: distended, tenderness, guarding Extremities exam: Present: normal inspection, normal capillary refill Back exam: Present: normal inspection Neurological exam: Present: alert, CN II-XII intact. Absent: oriented X3, motor sensory deficit, reflexes normal Psychiatric exam: Present: normal affect, normal mood Skin exam: Present: warm, dry, intact. Absent: cyanosis, diaphoretic Course Vital Signs 09/25/22 09/25/22 20:51 22:23 Temperature 98 F Pulse Rate 81 71 Respiratory 17 15 Rate Blood Pressure 129/76 129/76 O2 Sat by Pulse 97 97 Oximetry EKG Findings - EKG Comments: EKG Findings:: EKG: Atrial fibrillation, left axis deviation, left ventricular branch block, QRS duration 158, QTC [address] segment elevation. Medical Decision Making - Medical Decision Making Was pt. sent in by a medical professional or institution (, PA, METER CALIBRATOR, urgent care, hospital, or long-term...) When possible be specific @ -[No] Did you speak to anyone other than the patient for history (EMS, parent, family, police, friend...)? What history was obtained from this source @ -Patient's daughter is at bedside Did you review nursing and triage notes (agree or disagree)? Why? @ -[I reviewed and agree with nursing and triage notes] Were old charts reviewed (outside hosp., previous admission, EMS record, old EKG, old radiological studies, urgent care reports/EKG's, long-term records)? Report findings @ -[No old charts were reviewed] Differential Diagnosis (chest pain, altered mental status, abdominal pain women, abdominal pain men, vaginal bleeding, weakness, fever, dyspnea, syncope, headache, dizziness, GI bleed, back pain, seizure, CVA, palpatations, mental health, musculoskeletal)? @ -Differential Weakness: Hypoglycemia, shock, sepsis, hyponatremia, anemia, infection, [place], ETOH, adverse medicine reaction, overdose, stroke, this is not meant to be an all-inclusive list. EKG interpreted by me (3pts min.). @ -[As above] X-rays interpreted by me (1pt min.). @ -Chest x-ray negative for acute cardiopulmonary findings CT interpreted by me (1pt min.). @ -No intracranial hemorrhage or mass effect U/S interpreted by me (1pt. min.). @ -[None done] What testing was considered but not performed or refused? (CT, X-rays, U/S, labs)? Why? @ -[None] What meds were considered but not given or refused? Why? @ -[None] Did you discuss the management of the patient with other professionals (professionals i.e. , PA, METER CALIBRATOR, lab, RT, psych nurse, social services designee, garment patternmaker, teacher, corrections officer, case packer and sealer)? Give summary @ -[Dr. Torrez Was smoking cessation discussed for >3mins.? @ -[No] Was critical care preformed (if so, how long)? @ -[No] Were there social determinants of health that impacted care today? How? (Homelessness, low income, unemployed, alcoholism, drug addiction, transportation, low edu. Level, literacy, decrease access to med. care, correction, rehab)? @ -[No] Was there de-escalation of care discussed even if they declined (Discuss DNR or withdrawal of care, Hospice)? DNR status @ -[No] What co-morbidities impacted this encounter? (DM, HTN, Smoking, COPD, CAD, Cancer, CVA, ARF, Chemo, Hep., AIDS, mental health diagnosis, sleep apnea, morbid obesity)? @ -Dementia, hypertension Was patient admitted / discharged? Hospital course, mention meds given and route, prescriptions, significant lab abnormalities, going to OR and other pertinent info. @ -87-year-old female with increased weakness. Patient does appear somewhat dehydrated. She has had an increase in her Lasix dosing over the past several weeks. Her potassium is 2.6 in her creatinine is elevated 2. The remainder of her workup is within normal limits. She will be placed in observation for hydration and potassium replacement reevaluation in the morning by her primary care Dr. Torrez who is aware. Undiagnosed new problem with uncertain prognosis? @ -[No] Drug Therapy requiring intensive monitoring for toxicity (Heparin, Nitro, Insulin, Cardizem)? @ -[No] Were any procedures done? @ -[No] Diagnosis/symptom? @ -Generalized weakness, hypokalemia, dehydration] Acute, or Chronic, or Acute on Chronic? @ -[Acute Uncomplicated (without systemic symptoms) or Complicated (systemic symptoms)? @ -[Complicated Side effects of treatment? @ -[No] Exacerbation, Progression, or Severe Exacerbation? @ -[No] Poses a threat to life or bodily function? How? (Chest pain, [place], [place], pneumonia, PE, COPD, DKA, ARF, appy, cholecystitis, CVA, Diverticulitis, Homicidal, Suicidal, threat to staff... and all critical care pts) @ -[Yes, arrhythmia, hypovolemia] - Lab Data Result diagrams: 09/25/22 21:30 09/25/22 21:30 Lab Results 09/25/22 09/25/22 09/25/22 Range/Units 21:30 21:30 21:30 WBC 7.0 (3.8-10.6) k/uL RBC 4.07 (3.80-5.40) m/uL Hgb 12.8 (11.4-16.0) gm/dL Hct 36.9 (34.0-46.0) % MCV 90.7 (80.0-100.0) fL MCH 31.6 (25.0-35.0) pg MCHC 34.8 (31.0-37.0) g/dL RDW 13.6 (11.5-15.5) % Plt Count 230 (150-450) k/uL MPV 9.3 Neutrophils % 68 % Lymphocytes % 19 % Monocytes % 9 % Eosinophils % 2 % Basophils % 1 % Neutrophils # 4.7 (1.3-7.7) k/uL Lymphocytes # 1.3 (1.0-4.8) k/uL Monocytes # 0.6 (0-1.0) k/uL Eosinophils # 0.2 (0-0.7) k/uL Basophils # 0.0 (0-0.2) k/uL PT 10.9 (9.0-12.0) sec INR 1.0 (<1.2) APTT 25.2 (22.0-30.0) sec Sodium 133 L (137-145) mmol/L Potassium 2.6 L* (3.5-5.1) mmol/L Chloride 87 L (98-107) mmol/L Carbon Dioxide 38 H (22-30) mmol/L Anion Gap 8 mmol/L BUN 58 H (7-17) mg/dL Creatinine 2.08 H (0.52-1.04) mg/dL Est GFR (CKD-EPI)AfAm 24 (>60 ml/min/1.73 sqM) Est GFR (CKD-EPI)NonAf 21 (>60 ml/min/1.73 sqM) Glucose 156 H (74-99) mg/dL Plasma Lactic Acid Arley (0.7-2.0) mmol/L Calcium 8.8 (8.4-10.2) mg/dL Magnesium 2.3 (1.6-2.3) mg/dL Total Bilirubin 0.6 (0.2-1.3) mg/dL AST 35 (14-36) U/L ALT 25 (4-34) U/L Alkaline Phosphatase 130 H (38-126) U/L Troponin I (0.000-0.034) ng/mL NT-Pro-B Natriuret Pep pg/mL Total Protein 7.8 (6.3-8.2) g/dL Albumin 4.6 (3.5-5.0) g/dL Urine Color Urine Appearance (Clear) Urine pH (5.0-8.0) Ur Specific Ribera (1.001-1.035) Urine Protein (Negative) Urine Glucose (UA) (Negative) Urine Ketones (Negative) Urine Blood (Negative) Urine Nitrite (Negative) Urine Bilirubin (Negative) Urine Urobilinogen (<2.0) mg/dL Ur Leukocyte Esterase (Negative) Urine RBC (0-5) /hpf Urine WBC (0-5) /hpf Urine WBC Clumps (None) /hpf Ur Squamous Epith Cells (0-4) /hpf Urine Bacteria (None) /hpf Hyaline Casts (0-2) /lpf Urine Mucus (None) /hpf Influenza Type A (PCR) (Not Detectd) Influenza Type B (PCR) (Not Detectd) RSV (PCR) (Not Detectd) SARS-CoV-2 (PCR) (Not Detectd) 09/25/22 09/25/22 09/25/22 Range/Units 21:30 21:30 21:30 WBC (3.8-10.6) k/uL RBC (3.80-5.40) m/uL Hgb (11.4-16.0) gm/dL Hct (34.0-46.0) % MCV (80.0-100.0) fL MCH (25.0-35.0) pg MCHC (31.0-37.0) g/dL RDW (11.5-15.5) % Plt Count (150-450) k/uL MPV Neutrophils % % Lymphocytes % % Monocytes % % Eosinophils % % Basophils % % Neutrophils # (1.3-7.7) k/uL Lymphocytes # (1.0-4.8) k/uL Monocytes # (0-1.0) k/uL Eosinophils # (0-0.7) k/uL Basophils # (0-0.2) k/uL PT (9.0-12.0) sec INR (<1.2) APTT (22.0-30.0) sec Sodium (137-145) mmol/L Potassium (3.5-5.1) mmol/L Chloride (98-107) mmol/L Carbon Dioxide (22-30) mmol/L Anion Gap mmol/L BUN (7-17) mg/dL Creatinine (0.52-1.04) mg/dL Est GFR (CKD-EPI)AfAm (>60 ml/min/1.73 sqM) Est GFR (CKD-EPI)NonAf (>60 ml/min/1.73 sqM) Glucose (74-99) mg/dL Plasma Lactic Acid Arley 1.3 (0.7-2.0) mmol/L Calcium (8.4-10.2) mg/dL Magnesium (1.6-2.3) mg/dL Total Bilirubin (0.2-1.3) mg/dL AST (14-36) U/L ALT (4-34) U/L Alkaline Phosphatase (38-126) U/L Troponin I 0.018 (0.000-0.034) ng/mL NT-Pro-B Natriuret Pep 1010 pg/mL Total Protein (6.3-8.2) g/dL Albumin (3.5-5.0) g/dL Urine Color Urine Appearance (Clear) Urine pH (5.0-8.0) Ur Specific Ribera (1.001-1.035) Urine Protein (Negative) Urine Glucose (UA) (Negative) Urine Ketones (Negative) Urine Blood (Negative) Urine Nitrite (Negative) Urine Bilirubin (Negative) Urine Urobilinogen (<2.0) mg/dL Ur Leukocyte Esterase (Negative) Urine RBC (0-5) /hpf Urine WBC (0-5) /hpf Urine WBC Clumps (None) /hpf Ur Squamous Epith Cells (0-4) /hpf Urine Bacteria (None) /hpf Hyaline Casts (0-2) /lpf Urine Mucus (None) /hpf Influenza Type A (PCR) (Not Detectd) Influenza Type B (PCR) (Not Detectd) RSV (PCR) (Not Detectd) SARS-CoV-2 (PCR) (Not Detectd) 09/25/22 09/25/22 Range/Units 21:30 22:08 WBC (3.8-10.6) k/uL RBC (3.80-5.40) m/uL Hgb (11.4-16.0) gm/dL Hct (34.0-46.0) % MCV (80.0-100.0) fL MCH (25.0-35.0) pg MCHC (31.0-37.0) g/dL RDW (11.5-15.5) % Plt Count (150-450) k/uL MPV Neutrophils % % Lymphocytes % % Monocytes % % Eosinophils % % Basophils % % Neutrophils # (1.3-7.7) k/uL Lymphocytes # (1.0-4.8) k/uL Monocytes # (0-1.0) k/uL Eosinophils # (0-0.7) k/uL Basophils # (0-0.2) k/uL PT (9.0-12.0) sec INR (<1.2) APTT (22.0-30.0) sec Sodium (137-145) mmol/L Potassium (3.5-5.1) mmol/L Chloride (98-107) mmol/L Carbon Dioxide (22-30) mmol/L Anion Gap mmol/L BUN (7-17) mg/dL Creatinine (0.52-1.04) mg/dL Est GFR (CKD-EPI)AfAm (>60 ml/min/1.73 sqM) Est GFR (CKD-EPI)NonAf (>60 ml/min/1.73 sqM) Glucose (74-99) mg/dL Plasma Lactic Acid Arley (0.7-2.0) mmol/L Calcium (8.4-10.2) mg/dL Magnesium (1.6-2.3) mg/dL Total Bilirubin (0.2-1.3) mg/dL AST (14-36) U/L ALT (4-34) U/L Alkaline Phosphatase (38-126) U/L Troponin I (0.000-0.034) ng/mL NT-Pro-B Natriuret Pep pg/mL Total Protein (6.3-8.2) g/dL Albumin (3.5-5.0) g/dL Urine Color Light Yellow Urine Appearance Cloudy H (Clear) Urine pH 5.5 (5.0-8.0) Ur Specific Ribera 1.008 (1.001-1.035) Urine Protein Negative (Negative) Urine Glucose (UA) Negative (Negative) Urine Ketones Negative (Negative) Urine Blood Negative (Negative) Urine Nitrite Positive H (Negative) Urine Bilirubin Negative (Negative) Urine Urobilinogen <2.0 (<2.0) mg/dL Ur Leukocyte Esterase Large H (Negative) Urine RBC 1 (0-5) /hpf Urine WBC 26 H (0-5) /hpf Urine WBC Clumps Few H (None) /hpf Ur Squamous Epith Cells 1 (0-4) /hpf Urine Bacteria Occasional H (None) /hpf Hyaline Casts 5 H (0-2) /lpf Urine Mucus Rare H (None) /hpf Influenza Type A (PCR) Not Detected (Not Detectd) Influenza Type B (PCR) Not Detected (Not Detectd) RSV (PCR) Not Detected (Not Detectd) SARS-CoV-2 (PCR) Not Detected (Not Detectd) Disposition Clinical Impression: Dehydration, Altered mental status, Dementia, Hypokalemia Disposition: ADMITTED IP TO THIS [facility] Condition: Stable Is patient prescribed a controlled substance at d/c from ED?: No Referrals: Yrn Torrez DO [Primary Care Provider] - 1-2 days Time of Disposition: 23:08
[2022-09-25 21:46] LABS: Basophils % (A) 1 %; Eosinophils # (A) 0.2 k/uL (0-0.7); Eosinophils % (A) 2 %; HCT 36.9 % (34.0-46.0); HGB 12.8 gm/dL (11.4-16.0); Lymphocytes # (A) 1.3 k/uL (1.0-4.8); Lymphocytes % (A) 19 %; MCH 31.6 pg (25.0-35.0); MCHC 34.8 g/dL (31.0-37.0); MCV 90.7 fL (80.0-100.0); Mean Platelet Volume 9.3; Monocytes # (A) 0.6 k/uL (0-1.0); Monocytes % (A) 9 %; Neutrophils # (A) 4.7 k/uL (1.3-7.7); Neutrophils % (A) 68 %; Platelet Count 230 k/uL (150-450); RBC 4.07 m/uL (3.80-5.40); RDW 13.6 % (11.5-15.5)
[2022-09-25 21:56] LABS: Albumin 4.6 g/dL (3.5-5.0); Calcium 8.8 mg/dL (8.4-10.2); Magnesium 2.3 mg/dL (1.6-2.3); Total Bilirubin 0.6 mg/dL (0.2-1.3); Total Protein 7.8 g/dL (6.3-8.2)
[2022-09-25 21:57] LABS: Partial Thromboplastin Time 25.2 sec (22.0-30.0); Potassium 2.6 mmol/L (3.5-5.1); Prothrombin Time 10.9 sec (9.0-12.0)
--- NOTE | 2022-09-25 22:05 | CT ---
EXAMINATION TYPE: CT brain wo con DATE OF EXAM: 09/25/2022 COMPARISON: 08/06/21 HISTORY: Headache, unable to move extremities, Alzheimers, lethargic. CT DLP: 1217.[address] of the brain was performed. The ventricles, basal cisterns and sulci overlying the cerebral convexities demonstrate mild enlargem ent. There is no evidence for intracranial hemorrhage or sulcal effacement. There is decreased attenuation about the periventricular white matter and deep white matter of both c erebral hemispheres, compatible with chronic small vessel ischemia. Differential diagnosis does inclu de demyelination. No mass effects are seen.No midline shift. Osseous calvarium is intact. If symptoms persist consider MRI. IMPRESSION: 1. Age related atrophic and chronic small vessel ischemic change without acute intracranial process s een at this time.
[2022-09-25] MEDS ORDERED: POTASSIUM CHLORIDE ER 20 MEQ TAB.ER PO STA (22:09)
--- NOTE | 2022-09-25 22:09 | XR ---
EXAMINATION TYPE: XR chest 2V DATE OF EXAM: 09/25/2022 COMPARISON: 08/28/22 HISTORY: Shortness of breath TECHNIQUE: Frontal and lateral views of the chest are obtained. FINDINGS: Scattered senescent parenchymal changes noted. Hyperinflation compatible with COPD. No evidence for infiltrate. No evidence for atelectasis. Heart size is stable. Mediastinal structures are stable and grossly unremarkable. No evidence for hilar prominence. Degenerative changes dorsal spine. IMPRESSION: 1. No evidence for acute pulmonary disease.
[2022-09-25] MEDS: POTASSIUM CHLORIDE 10 MEQ in WATER FOR INJECTION 1 100ML.BAG IVPB SCH (22:17)
[2022-09-25 22:31] LABS: Appearance,Urine Cloudy (Clear); Bacteria,Urine Occasional /hpf; Bilirubin,Urine Negative (Negative); Blood,Urine Negative (Negative); Color,Urine Light Yellow; Glucose,Urine (UA) Negative (Negative); Hyaline Casts,Urine 5 /lpf (0-2); Ketones,Urine Negative (Negative); Leukocyte Esterase,Urine Large (Negative); Mucus,Urine Rare /hpf; Nitrite,Urine Positive (Negative); PH, Urine 5.5 (5.0-8.0); Protein,Urine Negative (Negative); RBC,Urine 1 /hpf (0-5); Specific Gravity,Urine 1.008 (1.001-1.035); Squamous Epithelial Cell,Urine 1 /hpf (0-4); Urobilinogen,Urine <2.0 mg/dL (<2.0); WBC,Urine 26 /hpf (0-5)
[2022-09-25] MEDS ORDERED: NALOXONE 0.4 MG/ML 1 ML VIAL IV PRN (23:04)
[2022-09-25] MEDS ORDERED: ACETAMINOPHEN TAB 325 MG TAB PO PRN (23:04)
[2022-09-26] MEDS: POTASSIUM CHLORIDE 10 MEQ in WATER FOR INJECTION 1 100ML.BAG IVPB SCH ×3 (01:03→05:04)
[2022-09-26] MEDS: SODIUM CHLORIDE 0.9% 1,000 ML IV SCH ×2 (01:03→21:33)
[2022-09-26 05:23] LABS: Calcium 9.2 mg/dL (8.4-10.2); Potassium 2.9 mmol/L (3.5-5.1)
[2022-09-26] MEDS: POTASSIUM CHLORIDE ER 20 MEQ TAB.ER PO SCH ×5 (08:30→21:32)
[2022-09-26] MEDS ORDERED: ACETAMINOPHEN TAB 500 MG TAB PO PRN (12:44)
[2022-09-26] MEDS ORDERED: Potassium Replacement Protocol 1 EACH MISC MISCELLANE PRN ×2 (12:45→13:43)
[2022-09-26] MEDS: PANTOPRAZOLE 40 MG TABLET PO SCH (13:03)
[2022-09-26] MEDS: APIXABAN 2.5 MG TABLET PO SCH ×2 (13:03→21:32)
[2022-09-26] MEDS: amLODIPine 5 MG TAB PO SCH (13:03)
[2022-09-26] MEDS: CITALOPRAM HYDROBROMIDE 20 MG TAB PO SCH (13:03)
[2022-09-26] MEDS: buPROPion 75 MG TAB PO SCH (13:15)
[2022-09-26] MEDS: OXcarbazepine 150 MG TAB PO SCH ×2 (13:15→21:32)
--- NOTE | 2022-09-26 13:57 | P.HPIM ---
History of Present Illness H&P Date: 09/26/22 Chief Complaint: Dehydration, lethargic, increased confusion This is an 87-year-old female resident [facility] with past medical history of chronic atrial fibrillation, gastroesophageal reflux disease, hypertension, hyperthyroidism, osteoarthritis, and multiple other medical issues admitted with worsened altered mental status, generalized increased weakness without focal numbness or weakness. Vague historian, history of dementia. Denies nausea vomiting or abdominal pain. Denies chest pain, palpitations or shortness of breath. EKG reported atrial fibrillation, left axis deviation, troponin 0.018. Brain CT reported age-related atrophic and chronic small vessel ischemic change without acute intracranial process seen at this time. Chest x-ray reported no acute pulmonary disease. Review of Systems Review of Systems ROS unobtainable due to patients medical condition Past Medical History Past Medical History: Atrial Fibrillation, Cancer, GERD/Reflux, Hypertension, Osteoarthritis (OA), Thyroid Disorder Additional Past Medical History / Comment(s): States irregular heart beat, Varicose Veins, Hx of 3 doses of radioactive iodine for Thyroid tx"for over active thyroid"., HX of a fall ,"headaches", pancreatitis, sinus infections, past gout, cataracts(sx done), hiatal hernia, uterine cancer >25 years ago(sx only), uti History of Any Multi-Drug Resistant Organisms: None Reported Past Surgical History: Cholecystectomy, Hysterectomy, Joint Replacement, Orthopedic Surgery, Tonsillectomy Additional Past Surgical History / Comment(s): PARTIAL LEFT HIP AND THEN TOTAL LEFT HIP., RIGHT CATARACT ([facility] cataract BL Past Anesthesia/Blood Transfusion Reactions: No Reported Reaction Past Psychological History: Anxiety Smoking Status: Never smoker Past Alcohol Use History: None Reported Past Drug Use History: None Reported - Past Family History Sister(s) Family Medical History: Cancer Mother Additional Family Medical History / Comment(s): graves disease. comiited suicide in 1941 Father Family Medical History: Myocardial Infarction ([place]) Medications and Allergies Home Medications Medication Instructions Recorded Confirmed Type Apixaban [Eliquis] 2.5 mg PO BID 11/04/20 09/25/22 History Omeprazole 20 mg PO DAILY 12/03/20 09/25/22 History Acetaminophen Tab [Tylenol] 1,000 mg PO BID PRN 08/28/22 09/25/22 History Cetirizine HCl 10 mg PO HS 08/28/22 09/25/22 History Citalopram Hydrobromide [CeleXA] 20 mg PO DAILY 08/28/22 09/25/22 History Donepezil [Aricept] 10 mg PO HS 08/28/22 09/25/22 History Furosemide [Lasix] 40 mg PO BID@0900,1600 08/28/22 09/25/22 History Loperamide HCl [Loperamide] 2 - 4 mg PO QID PRN 08/28/22 09/25/22 History OXcarbazepine [Trileptal] 150 mg PO BID 08/28/22 09/25/22 History Potassium Chloride ER [K-Dur 20] 20 meq PO SUTUTHSA 08/28/22 09/25/22 History amLODIPine [Norvasc] 5 mg PO DAILY 08/28/22 09/25/22 History buPROPion [Wellbutrin] 75 mg PO DAILY 08/28/22 09/25/22 History Potassium Chloride ER [K-Dur 20] 40 meq PO MOWEFR 09/25/22 09/25/22 History Allergies Allergy/AdvReac Type Severity Reaction Status Date / Time nitrofurantoin Allergy Unknown Itching Verified 09/25/22 22:43 [From Macrobid] rofecoxib [From Vioxx] Allergy Unknown Hypertensio Verified 09/25/22 22:43 n sertraline [From Zoloft] Allergy Unknown Rash/Hives Verified 09/25/22 22:43 shellfish derived [Shellfish] AdvReac Severe Nausea & Verified 09/25/22 22:43 Vomiting, Very Ill. celecoxib [From Celebrex] AdvReac Unknown Loss of Verified 09/25/22 22:43 Balance iodine AdvReac Nausea & Verified 09/25/22 22:43 Vomiting Physical Exam Vitals: Vital Signs Temp Pulse Pulse Resp BP BP Pulse Ox 09/26/22 10:10 75 16 09/26/22 06:49 98.2 F 75 16 128/78 97 09/26/22 06:47 98.2 F 75 16 128/79 97 09/26/22 01:45 98.2 F 72 18 125/76 98 09/26/22 01:42 15 09/25/22 23:45 87 15 129/76 96 09/25/22 22:23 71 15 129/76 97 09/25/22 20:51 98 F 81 17 129/76 97 Intake and Output 09/25/22 09/26/22 09/26/22 22:59 06:59 14:59 Other: Voiding Method Bedside Commode Bedside Commode # Voids 1 3 Weight 95.254 kg 95.254 kg PHYSICAL EXAM: VITAL SIGNS: As above GENERAL: Sitting up in bed, no acute distress. Mentation slower compared to baseline per PCP. Patient did not recognize PCP. HEENT: Conjunctivae normal. eyes normal. NECK: Supple, No JVD. No thyroid enlargement. No LNs CARDIOVASCULAR: S1, S2 regular. Irregular, No murmur RESPIRATION: Breath sounds diminished in the bases. No rhonchi or crackles. No bronchial breathing. ABDOMEN: Soft, nontender . No guarding. no masses palpable. No ascites, No hepatosplenomegaly.Bowel sounds heard. LEGS: Bilateral lower extremity trace edema, no calf tenderness. PSYCHIATRY: Alert and oriented X2, alert and oriented to person and place ,mood and affect normal. NERVOUS SYSTEM: Cranial N 2-12 grossly normal.Diffuse weakness,No focal deficits. Strength and sensation grossly intact. Skin: warm and dry, no rashes noted. Microbiology 09/25/22 23:49 Urine,Clean Catch Urine Culture - Preliminary Results CBC & Chem 7: 09/25/22 21:30 09/26/22 07:49 Labs: Abnormal Lab Results - Last 24 Hours (Table) 09/25/22 09/25/22 09/26/22 Range/Units 21:30 22:08 04:12 Sodium 133 L 134 L (137-145) mmol/L Potassium 2.6 L* 2.9 L (3.5-5.1) mmol/L Chloride 87 L 88 L (98-107) mmol/L Carbon Dioxide 38 H 40 H (22-30) mmol/L BUN 58 H 57 H (7-17) mg/dL Creatinine 2.08 H 1.81 H (0.52-1.04) mg/dL Glucose 156 H 151 H (74-99) mg/dL Alkaline Phosphatase 130 H (38-126) U/L Urine Appearance Cloudy H (Clear) Urine Nitrite Positive H (Negative) Ur Leukocyte Esterase Large H (Negative) Urine WBC 26 H (0-5) /hpf Urine WBC Clumps Few H (None) /hpf Urine Bacteria Occasional H (None) /hpf Hyaline Casts 5 H (0-2) /lpf Urine Mucus Rare H (None) /hpf 09/26/22 Range/Units 07:49 Sodium (137-145) mmol/L Potassium 3.0 L (3.5-5.1) mmol/L Chloride (98-107) mmol/L Carbon Dioxide (22-30) mmol/L BUN (7-17) mg/dL Creatinine (0.52-1.04) mg/dL Glucose (74-99) mg/dL Alkaline Phosphatase (38-126) U/L Urine Appearance (Clear) Urine Nitrite (Negative) Ur Leukocyte Esterase (Negative) Urine WBC (0-5) /hpf Urine WBC Clumps (None) /hpf Urine Bacteria (None) /hpf Hyaline Casts (0-2) /lpf Urine Mucus (None) /hpf Microbiology - Last 24 Hours (Table) 09/25/22 23:49 Urine Culture - Preliminary Urine,Clean Catch Thrombosis Risk Factor Assmnt - Choose All That Apply Each Factor Represents 1 point: Obesity (BMI >25), Swollen legs (current), Varicose veins Each Risk Factor Represents 3 Points: Age 75 years or older Thrombosis Risk Factor Assessment Total Risk Factor Score: 6 Thrombosis Risk Factor Assessment Level: High Risk Assessment and Plan Assessment: -Altered mental status, worsened, in a patient with history of dementia secondary to acute UTI, dehydration, electrolyte imbalance. -Hypokalemic -Increased generalized weakness secondary to all the above, PT/OT consulted -Dehydration -Acute on Chronic renal failure, stage IV secondary to dehydration, infection., Baseline around 1. -Chronic atrial fibrillation, anticoagulated on Eliquis. -Hyperthyroidism -GERD -Essential hypertension -Osteoarthritis -Obesity, BMI 33.9 Plan: Continue on current medication regime ,monitoring and symptomatic treatment. Maintain ceftriaxone IV antibiotics, culture finalizing. Gentle IV fluid hydration. Potassium supplementation. Close monitoring of renal function, electrolytes with repeat labs ordered for a.m. PT/OT consulted. The impression and plan of care has been dictated as directed. : I performed a history and examination of this patient, discussed the same with the dictator. I agree with the dictator's note ,documented as a scribe. Any additional findings or plans will be noted.
[2022-09-26] MEDS ORDERED: LORATADINE 10 MG TAB PO SCH (21:00)
[2022-09-26] MEDS ORDERED: DONEPEZIL 10 MG TAB PO SCH (21:00)
[2022-09-27] MEDS: PANTOPRAZOLE 40 MG TABLET PO SCH (05:38)
[2022-09-27] MEDS ORDERED: PANTOPRAZOLE 40 MG TABLET PO SCH (07:30)
[2022-09-27] MEDS: APIXABAN 2.5 MG TABLET PO SCH (10:30)
[2022-09-27] MEDS: buPROPion 75 MG TAB PO SCH (10:30)
[2022-09-27] MEDS: OXcarbazepine 150 MG TAB PO SCH (10:30)
[2022-09-27] MEDS: CITALOPRAM HYDROBROMIDE 20 MG TAB PO SCH (10:30)
[2022-09-27] MEDS: POTASSIUM CHLORIDE ER 20 MEQ TAB.ER PO SCH (10:30)
[2022-09-27] MEDS: amLODIPine 5 MG TAB PO SCH (10:30)
[2022-09-27 14:07] VITALS: BP 114/74; PULSE 66; RESP 12; TEMP 97.1
--- NOTE | 2022-09-27 16:50 | P.DS ---
Providers Date of admission: 09/25/22 23:06 Expected date of discharge: 09/27/22 Attending physician: Yrn Torrez Primary care physician: Yrn Torrez [facility] Course: Final Diagnoses: -Altered mental status, worsened, acute metabolic encephalopathy, in a patient with history of dementia secondary to acute UTI, dehydration, electrolyte imbalance. Treated empirically I.P. for acute UTI, UA reported positive nitrates, culture has returned back negative. Completed antibiotic treatment. -Hypokalemic, supplemented, resolved -Increased generalized weakness secondary to all the above, PT/OT consulted -Dehydration -Acute on Chronic renal failure, stage IV secondary to dehydration, infection., Baseline around 1. Repeat BMP outpatient in clinic at follow-up with PCP -Chronic atrial fibrillation, anticoagulated on Eliquis. -Hyperthyroidism -GERD -Essential hypertension -Osteoarthritis -Obesity, BMI 33.9 - Hospital course:This is an 87-year-old female resident [facility] with past medical history of chronic atrial fibrillation, gastroesophageal reflux disease, hypertension, hyperthyroidism, osteoarthritis, and multiple other medical issues admitted with worsened altered mental status, generalized increased weakness without focal numbness or weakness. Vague historian, history of dementia. Denies nausea vomiting or abdominal pain. Denies chest pain, palpitations or shortness of breath. EKG reported atrial fibrillation, left axis deviation, troponin 0.018. Brain CT reported age-related atrophic and chronic small vessel ischemic change without acute intracranial process seen at this time. Chest x- ray reported no acute pulmonary disease. Treated with gentle IV fluid hydration, empiric IV antibiotics and electrolyte supplementation. Significant clinical improvement. Urine culture reporting negative. No antibiotics at discharge. Repeat BMP outpatient in clinic at follow-up with PCP. Evaluated by physical therapy, recommending home care, assisted living, assist required for ADLs. Patient will be discharged to [facility] today in a stable condition with guarded prognosis. The impression and plan of care has been dictated as directed. : I performed a history and examination of this patient, discussed the same with the dictator. I agree with the dictator's note ,documented as a scribe. Any additional findings or plans will be noted. Patient Condition at Discharge: Stable Plan - Discharge Summary New Discharge Prescriptions: Continue Potassium Chloride ER [K-Dur 20] 20 meq PO SUTUTHSA Donepezil [Aricept] 10 mg PO HS Cetirizine HCl 10 mg PO HS Potassium Chloride ER [K-Dur 20] 40 meq PO MOWEFR Apixaban [Eliquis] 2.5 mg PO BID Omeprazole 20 mg PO DAILY Acetaminophen Tab [Tylenol] 1,000 mg PO BID PRN PRN Reason: Pain Loperamide HCl [Loperamide] 2 - 4 mg PO QID PRN PRN Reason: Diarrhea OXcarbazepine [Trileptal] 150 mg PO BID Furosemide [Lasix] 40 mg PO BID@0900,1600 Citalopram Hydrobromide [CeleXA] 20 mg PO DAILY buPROPion [Wellbutrin] 75 mg PO DAILY amLODIPine [Norvasc] 5 mg PO DAILY Discharge Medication List Apixaban [Eliquis] 2.5 mg PO BID 11/04/20 [History] Omeprazole 20 mg PO DAILY 12/03/20 [History] Acetaminophen Tab [Tylenol] 1,000 mg PO BID PRN 08/28/22 [History] Cetirizine HCl 10 mg PO HS 08/28/22 [History] Citalopram Hydrobromide [CeleXA] 20 mg PO DAILY 08/28/22 [History] Donepezil [Aricept] 10 mg PO HS 08/28/22 [History] Furosemide [Lasix] 40 mg PO BID@0900,1600 08/28/22 [History] Loperamide HCl [Loperamide] 2 - 4 mg PO QID PRN 08/28/22 [History] OXcarbazepine [Trileptal] 150 mg PO BID 08/28/22 [History] Potassium Chloride ER [K-Dur 20] 20 meq PO SUTUTHSA 08/28/22 [History] amLODIPine [Norvasc] 5 mg PO DAILY 08/28/22 [History] buPROPion [Wellbutrin] 75 mg PO DAILY 08/28/22 [History] Potassium Chloride ER [K-Dur 20] 40 meq PO MOWEFR 09/25/22 [History] Follow up Appointment(s)/Referral(s): [facility], [NON-STAFF] - 1 Week Yrn Torrez DO [Primary Care Provider] - 09/29/22 10:40 am Patient Instructions/Handouts: Dehydration (DC), Urinary Tract Infection in Women (DC)
== END 2022-09-27 14:29 ==
LOC: EC 20:47 → 6NMEDSUR 23:06
PROVIDERS: ADMIT Family Medicine; ATTEND Family Medicine
DX: R41.82 Altered mental status, unspecified (principal); G93.41 Metabolic encephalopathy; F03.B0 Unspecified dementia, moderate, without behavioral disturbance, psychotic disturbance, mood disturbance, and anxiety; N39.0 Urinary tract infection, site not specified; E87.8 Other disorders of electrolyte and fluid balance, not elsewhere classified; E87.6 Hypokalemia; R53.1 Weakness; I12.9 Hypertensive chronic kidney disease with stage 1 through stage 4 chronic kidney disease, or unspecified chronic kidney disease; N18.4 Chronic kidney disease, stage 4 (severe); I48.20 Chronic atrial fibrillation, unspecified; E05.90 Thyrotoxicosis, unspecified without thyrotoxic crisis or storm; K21.9 Gastro-esophageal reflux disease without esophagitis; M19.90 Unspecified osteoarthritis, unspecified site; E66.9 Obesity, unspecified; Z68.33 Body mass index [BMI] 33.0-33.9, adult; Z85.42 Personal history of malignant neoplasm of other parts of uterus; Z98.42 Cataract extraction status, left eye; Z98.41 Cataract extraction status, right eye; K44.9 Diaphragmatic hernia without obstruction or gangrene; I83.90 Asymptomatic varicose veins of unspecified lower extremity; Z90.49 Acquired absence of other specified parts of digestive tract; Z90.710 Acquired absence of both cervix and uterus; Z96.643 Presence of artificial hip joint, bilateral; F41.9 Anxiety disorder, unspecified; Z79.01 Long term (current) use of anticoagulants; Z79.899 Other long term (current) drug therapy; Z88.8 Allergy status to other drugs, medicaments and biological substances; Z88.1 Allergy status to other antibiotic agents; Z91.013 Allergy to seafood
CPT/HCPCS: 96366 ×2; 96367; 96365; 99285; 36415; 94760 ×2; 93005; 97162; 97535; 97166; 83880; 80053; 80048; 83605; 83735; 84132; 84484; 85025; 85610; 85730; 81001; 87086; 87636; 71046; 70450; G0378 ×3; J0696 ×2; J3480 ×2

== ENCOUNTER 2022-12-14 12:05 | Inpatient (IN) | payer MEDICARE ==
--- NOTE | 2022-12-14 12:29 | ED ---
General Adult HPI - General Chief complaint: Urogenital Stated complaint: AMS Time Seen by Provider: 12/14/22 12:08 Source: patient, RN notes reviewed, old records reviewed Mode of arrival: EMS Limitations: altered mental status - History of Present Illness Initial comments: 87-year-old female presenting for evaluation of increased confusion. The patie nt does have a baseline dementia and has history of frequent UTIs. Patient is not able to give a significant amount of a stroke in detail. She denies complaint, denies fever denies chest pain or abdominal pain. No history of vomiting. Patient simply asks to go home during the entire evaluation. - Related Data Home Medications Medication Instructions Recorded Confirmed Apixaban [Eliquis] 2.5 mg PO BID@0800,1900 11/04/20 12/14/22 Omeprazole 20 mg PO DAILY@0800 12/03/20 12/14/22 Acetaminophen Tab [Tylenol] 1,000 mg PO BID PRN 08/28/22 12/14/22 Cetirizine HCl 10 mg PO HS@1900 08/28/22 12/14/22 Citalopram Hydrobromide [CeleXA] 20 mg PO DAILY@0800 08/28/22 12/14/22 Donepezil [Aricept] 10 mg PO HS@1900 08/28/22 12/14/22 Furosemide [Lasix] 40 mg PO BID@0800,1600 08/28/22 12/14/22 Loperamide HCl [Loperamide] 2 - 4 mg PO QID PRN 08/28/22 12/14/22 OXcarbazepine [Trileptal] 150 mg PO BID@0800,1900 08/28/22 12/14/22 amLODIPine [Norvasc] 5 mg PO DAILY@0800 08/28/22 12/14/22 buPROPion [Wellbutrin] 75 mg PO DAILY@0800 08/28/22 12/14/22 Hydrocortisone Cream 1 applic TOPICAL BID PRN 12/14/22 12/14/22 [Hydrocortisone 2.5% Cream] Menthol [Biofreeze] 1 applic TOPICAL QID PRN 12/14/22 12/14/22 lidocaine HCL [Aspercreme 1 applic TOPICAL TID PRN 12/14/22 12/14/22 Lidocaine] Allergies Allergy/AdvReac Type Severity Reaction Status Date / Time nitrofurantoin Allergy Unknown Itching Verified 12/14/22 13:40 [From Macrobid] rofecoxib [From Vioxx] Allergy Unknown Hypertensio Verified 12/14/22 13:40 n sertraline [From Zoloft] Allergy Unknown Rash/Hives Verified 12/14/22 13:40 shellfish derived [Shellfish] AdvReac Severe Nausea & Verified 12/14/22 13:40 Vomiting, Very Ill. celecoxib [From Celebrex] AdvReac Unknown Loss of Verified 12/14/22 13:40 Balance iodine AdvReac Nausea & Verified 12/14/22 13:40 Vomiting Review of Systems ROS Statement: Those systems with pertinent positive or pertinent negative responses have been documented in the HPI. ROS Other: All systems not noted in ROS Statement are negative. Past Medical History Past Medical History: Atrial Fibrillation, Cancer, GERD/Reflux, Hypertension, Osteoarthritis (OA), Thyroid Disorder Additional Past Medical History / Comment(s): States irregular heart beat, Varicose Veins, Hx of 3 doses of radioactive iodine for Thyroid tx"for over active thyroid"., HX of a fall ,"headaches", pancreatitis, sinus infections, past gout, cataracts(sx done), hiatal hernia, uterine cancer >25 years ago(sx only), uti History of Any Multi-Drug Resistant Organisms: None Reported Past Surgical History: Cholecystectomy, Hysterectomy, Joint Replacement, Orthopedic Surgery, Tonsillectomy Additional Past Surgical History / Comment(s): PARTIAL LEFT HIP AND THEN TOTAL LEFT HIP., RIGHT CATARACT ([facility] cataract BL Past Anesthesia/Blood Transfusion Reactions: No Reported Reaction Past Psychological History: Anxiety Smoking Status: Never smoker Past Alcohol Use History: None Reported Past Drug Use History: None Reported - Past Family History Sister(s) Family Medical History: Cancer Mother Additional Family Medical History / Comment(s): graves disease. comiited suicide in 1941 Father Family Medical History: Myocardial Infarction ([place]) General Exam Limitations: altered mental status General appearance: alert, in no apparent distress Head exam: Present: atraumatic, normocephalic Eye exam: Present: normal appearance, PERRL ENT exam: Present: normal exam Neck exam: Present: normal inspection. Absent: tenderness, meningismus Respiratory exam: Present: normal lung sounds bilaterally. Absent: respiratory distress, wheezes Cardiovascular Exam: Present: regular rate, normal rhythm GI/Abdominal exam: Present: soft. Absent: distended, tenderness Extremities exam: Present: normal inspection, pedal edema Neurological exam: Present: alert. Absent: oriented X3, motor sensory deficit Psychiatric exam: Present: agitated Skin exam: Present: warm, dry, intact Medical Decision Making - Medical Decision Making Was pt. sent in by a medical professional or institution (, [facility], [facility], urgent care, hospital, or [facility]...) When possible be specific @ -No Did you speak to anyone other than the patient for history (EMS, parent, family, police, friend...)? What history was obtained from this source @ -[Patient's daughter Did you review nursing and triage notes (agree or disagree)? Why? @ -I reviewed and agree with nursing and triage notes Were old charts reviewed (outside hosp., previous admission, EMS record, old EKG, old radiological studies, urgent care reports/EKG's, [facility] records)? Report findings @ -No old charts were reviewed Differential Diagnosis (chest pain, altered mental status, abdominal pain women, abdominal pain men, vaginal bleeding, weakness, fever, dyspnea, syncope, headache, dizziness, GI bleed, back pain, seizure, CVA, palpatations, mental health, musculoskeletal)? Differential Altered Mental Status: Hypoglycemia, DKA, hypercapnia, ETOH, overdose, CO poisoning, trauma, myxedema coma, HTN encephalopathy, infection, encephalitis, psychosis, intercranial hemorrhage, hepatic encephalopathy, meningitis, CVA, this is not meant to be an all-inclusive list EKG interpreted by me (3pts min.). @ -As above X-rays interpreted by me (1pt min.). @ -None done CT interpreted by me (1pt min.). @ -None done U/S interpreted by me (1pt. min.). @ -None done What testing was considered but not performed or refused? (CT, X-rays, U/S, l abs)? Why? @ -None What meds were considered but not given or refused? Why? @ -None Did you discuss the management of the patient with other professionals (professionals i.e. , SHAMIKA, [facility], lab, RT, psych nurse, neonatal social worker, stock preparation operator, teacher, contracts officer, top case assembler)? Give summary @ -[ sheet Was smoking cessation discussed for >3mins.? @ -No Was critical care preformed (if so, how long)? @ -No Were there social determinants of health that impacted care today? How? (Homelessness, low income, unemployed, alcoholism, drug addiction, transportation, low edu. Level, literacy, decrease access to med. care, [facility], rehab)? @ -No Was there de-escalation of care discussed even if they declined (Discuss DNR or withdrawal of care, Hospice)? DNR status @ -[DO NOT RESUSCITATE What co-morbidities impacted this encounter? (DM, HTN, Smoking, COPD, CAD, Cancer, CVA, ARF, Chemo, Hep., AIDS, mental health diagnosis, sleep apnea, morbi d obesity)? @Recurrent UTI, dementia Was patient admitted / discharged? Hospital course, mention meds given and route, prescriptions, significant lab abnormalities, going to OR and other pertinent info. @ -Patient admitted for hydration and treatment of UTI, urine culture pending Undiagnosed new problem with uncertain prognosis? @ -No Drug Therapy requiring intensive monitoring for toxicity (Heparin, Nitro, Insulin, Cardizem)? @ -No Were any procedures done? @ -No Diagnosis/symptom? @ -[Confusion, UTI Acute, or Chronic, or Acute on Chronic? @ -[Acute Uncomplicated (without systemic symptoms) or Complicated (systemic symptoms)? @ -default Side effects of treatment? @ -No Exacerbation, Progression, or Severe Exacerbation? @ -No Poses a threat to life or bodily function? How? (Chest pain, USA, LA, pneumonia, PE, COPD, DKA, ARF, appy, cholecystitis, CVA, Diverticulitis, Homicidal, Suicidal, threat to staff... and all critical care pts) @ -[Yes, sepsis, - Lab Data Result diagrams: 12/14/22 12:15 12/14/22 12:15 Lab Results 12/14/22 12/14/22 12/14/22 Range/Units 12:15 12:15 12:15 WBC 5.3 (3.8-10.6) k/uL RBC 4.00 (3.80-5.40) m/uL Hgb 12.5 (11.4-16.0) gm/dL Hct 37.8 (34.0-46.0) % MCV 94.5 (80.0-100.0) fL MCH 31.3 (25.0-35.0) pg MCHC 33.1 (31.0-37.0) g/dL RDW 13.3 (11.5-15.5) % Plt Count 252 (150-450) k/uL MPV 8.8 Neutrophils % 64 % Lymphocytes % 21 % Monocytes % 10 % Eosinophils % 3 % Basophils % 1 % Neutrophils # 3.4 (1.3-7.7) k/uL Lymphocytes # 1.1 (1.0-4.8) k/uL Monocytes # 0.5 (0-1.0) k/uL Eosinophils # 0.2 (0-0.7) k/uL Basophils # 0.1 (0-0.2) k/uL Sodium 137 (137-145) mmol/L Potassium 4.2 (3.5-5.1) mmol/L Chloride 98 (98-107) mmol/L Carbon Dioxide 31 H (22-30) mmol/L Anion Gap 8 mmol/L BUN 21 H (7-17) mg/dL Creatinine 1.07 H (0.52-1.04) mg/dL Est GFR (CKD-EPI)AfAm 54 (>60 ml/min/1.73 sqM) Est GFR (CKD-EPI)NonAf 47 (>60 ml/min/1.73 sqM) Glucose 102 H (74-99) mg/dL Calcium 8.9 (8.4-10.2) mg/dL Total Bilirubin 0.6 (0.2-1.3) mg/dL AST 24 (14-36) U/L ALT 15 (4-34) U/L Alkaline Phosphatase 116 (38-126) U/L Total Protein 7.6 (6.3-8.2) g/dL Albumin 4.4 (3.5-5.0) g/dL Urine Color Light Yellow Urine Appearance Cloudy H (Clear) Urine pH 7.0 (5.0-8.0) Ur Specific [place] 1.010 (1.001-1.035) Urine Protein Negative (Negative) Urine Glucose (UA) Negative (Negative) Urine Ketones Negative (Negative) Urine Blood Negative (Negative) Urine Nitrite Positive H (Negative) Urine Bilirubin Negative (Negative) Urine Urobilinogen <2.0 (<2.0) mg/dL Ur Leukocyte Esterase Large H (Negative) Urine RBC 1 (0-5) /hpf Urine WBC >182 H (0-5) /hpf Ur Squamous Epith Cells 3 (0-4) /hpf Urine Bacteria Few H (None) /hpf Hyaline Casts 2 (0-2) /lpf Disposition Clinical Impression: Dehydration, UTI (urinary tract infection) Disposition: ADMITTED IP TO THIS HOSP Condition: Stable Is patient prescribed a controlled substance at d/c from ED?: No Referrals: Yrn Torrez DO [Primary Care Provider] - 1-2 days Time of Disposition: 14:15
[2022-12-14 12:46] LABS: Basophils # (A) 0.1 k/uL (0-0.2); Basophils % (A) 1 %; Eosinophils # (A) 0.2 k/uL (0-0.7); Eosinophils % (A) 3 %; HCT 37.8 % (34.0-46.0); HGB 12.5 gm/dL (11.4-16.0); Lymphocytes # (A) 1.1 k/uL (1.0-4.8); Lymphocytes % (A) 21 %; MCH 31.3 pg (25.0-35.0); MCHC 33.1 g/dL (31.0-37.0); MCV 94.5 fL (80.0-100.0); Mean Platelet Volume 8.8; Monocytes # (A) 0.5 k/uL (0-1.0); Monocytes % (A) 10 %; Neutrophils # (A) 3.4 k/uL (1.3-7.7); Neutrophils % (A) 64 %; Platelet Count 252 k/uL (150-450); RDW 13.3 % (11.5-15.5); WBC 5.3 k/uL (3.8-10.6)
[2022-12-14 12:56] LABS: ALT 15 U/L (4-34); AST 24 U/L (14-36); African American GFR (CKD) 54 (>60 ml/min/1.73 sqM); Albumin 4.4 g/dL (3.5-5.0); Alkaline Phosphatase 116 U/L (38-126); Anion Gap 8 mmol/L; Blood Urea Nitrogen 21 mg/dL (7-17); Calcium 8.9 mg/dL (8.4-10.2); Carbon Dioxide 31 mmol/L (22-30); Chloride 98 mmol/L (98-107); Glucose 102 mg/dL (74-99); Non-African American GFR(CKD) 47 (>60 ml/min/1.73 sqM); Potassium 4.2 mmol/L (3.5-5.1); Sodium 137 mmol/L (137-145); Total Bilirubin 0.6 mg/dL (0.2-1.3); Total Protein 7.6 g/dL (6.3-8.2)
[2022-12-14 13:07] LABS: Appearance,Urine Cloudy (Clear); Bacteria,Urine Few /hpf; Bilirubin,Urine Negative (Negative); Blood,Urine Negative (Negative); Color,Urine Light Yellow; Glucose,Urine (UA) Negative (Negative); Hyaline Casts,Urine 2 /lpf (0-2); Ketones,Urine Negative (Negative); Leukocyte Esterase,Urine Large (Negative); Nitrite,Urine Positive (Negative); Protein,Urine Negative (Negative); RBC,Urine 1 /hpf (0-5); Squamous Epithelial Cell,Urine 3 /hpf (0-4); Urobilinogen,Urine <2.0 mg/dL (<2.0); WBC,Urine >182 /hpf (0-5)
[2022-12-14] MEDS ORDERED: cefTRIAXone IN SWFI 1,000 MG/10 ML SYRINGE IVP STA (13:24)
[2022-12-14] MEDS ORDERED: NALOXONE 0.4 MG/ML 1 ML VIAL IV PRN (14:13)
[2022-12-14] MEDS ORDERED: ACETAMINOPHEN TAB 325 MG TAB PO PRN (14:13)
[2022-12-14] MEDS: SODIUM CHLORIDE 0.9% 1,000 ML IV SCH (17:09)
[2022-12-14] MEDS ORDERED: LOPERAMIDE 2 MG CAP PO PRN (19:16)
--- NOTE | 2022-12-14 19:26 | P.HPIM ---
History of Present Illness This is a pleasant 87 years old female from [facility] with multiple medical problems as below presents because of confusion and altered mental status as per daughter who is at bedside She states that she has history of dementia however over the last few days she is becoming more lethargic and confused Also staff at her facility notices that she has more stool incontinence and they were suspecting she has UTI. At baseline she walks with a walker Patient currently lying in bed, denies any chest pain dyspnea, no abdominal pain vomiting diarrhea, no urinary symptoms. No headache or weakness or numbness. She looks very lethargic, she is disoriented to time place and person. No history of trauma or fall: No evidence of loose she is hemodynamically stable and she is febrile She has unremarkable CBC, BMP is also with no significant abnormality, creatinine 1.0 at baseline, GFR is 47 indicating chronic kidney disease Urine analysis is positive for leukocyte esterase: Large and urine WBCs more than 182 Review of Systems Review of systems CONSTITUTIONAL: No fever, no malaise, no fatigue. HEENT: No recent visual problems or hearing problems. Denied any sore throat. CARDIOVASCULAR: No orthopnea, PND, no palpitations, no syncope. PULMONARY: No shortness of breath, no cough, no hemoptysis. GASTROINTESTINAL: No diarrhea, no nausea, no vomiting, no abdominal pain. Normoactive bowel sounds. NEUROLOGICAL: No headaches, no weakness, no numbness. HEMATOLOGICAL: Denies any bleeding or petechiae. GENITOURINARY: Denies any burning micturition, frequency, or urgency. MUSCULOSKELETAL/RHEUMATOLOGICAL: Denies any joint pain, swelling, or any muscle pain. ENDOCRINE: Denies any polyuria or polydipsia. Past Medical History Past Medical History: Atrial Fibrillation, Cancer, GERD/Reflux, Hypertension, Osteoarthritis (OA), Thyroid Disorder Additional Past Medical History / Comment(s): States irregular heart beat, Varicose Veins, Hx of 3 doses of radioactive iodine for Thyroid tx"for over active thyroid"., HX of a fall ,"headaches", pancreatitis, sinus infections, past gout, cataracts(sx done), hiatal hernia, uterine cancer >25 years ago(sx only), uti History of Any Multi-Drug Resistant Organisms: None Reported Past Surgical History: Cholecystectomy, Hysterectomy, Joint Replacement, Orthopedic Surgery, Tonsillectomy Additional Past Surgical History / Comment(s): PARTIAL LEFT HIP AND THEN TOTAL LEFT HIP., RIGHT CATARACT ([facility] cataract BL Past Anesthesia/Blood Transfusion Reactions: No Reported Reaction Past Psychological History: Anxiety Smoking Status: Never smoker Past Alcohol Use History: None Reported Past Drug Use History: None Reported - Past Family History Sister(s) Family Medical History: Cancer Mother Additional Family Medical History / Comment(s): graves disease. comiited suicide in 1941 Father Family Medical History: Myocardial Infarction ([place]) Medications and Allergies Home Medications Medication Instructions Recorded Confirmed Type Apixaban [Eliquis] 2.5 mg PO BID@0800,1900 11/04/20 12/14/22 History Omeprazole 20 mg PO DAILY@0800 12/03/20 12/14/22 History Acetaminophen Tab [Tylenol] 1,000 mg PO BID PRN 08/28/22 12/14/22 History Cetirizine HCl 10 mg PO HS@1900 08/28/22 12/14/22 History Citalopram Hydrobromide [CeleXA] 20 mg PO DAILY@0800 08/28/22 12/14/22 History Donepezil [Aricept] 10 mg PO HS@1900 08/28/22 12/14/22 History Furosemide [Lasix] 40 mg PO BID@0800,1600 08/28/22 12/14/22 History Loperamide HCl [Loperamide] 2 - 4 mg PO QID PRN 08/28/22 12/14/22 History OXcarbazepine [Trileptal] 150 mg PO BID@0800,1900 08/28/22 12/14/22 History amLODIPine [Norvasc] 5 mg PO DAILY@0800 08/28/22 12/14/22 History buPROPion [Wellbutrin] 75 mg PO DAILY@0800 08/28/22 12/14/22 History Hydrocortisone Cream 1 applic TOPICAL BID PRN 12/14/22 12/14/22 History [Hydrocortisone 2.5% Cream] Menthol [Biofreeze] 1 applic TOPICAL QID PRN 12/14/22 12/14/22 History lidocaine HCL [Aspercreme 1 applic TOPICAL TID PRN 12/14/22 12/14/22 History Lidocaine] Allergies Allergy/AdvReac Type Severity Reaction Status Date / Time nitrofurantoin Allergy Unknown Itching Verified 12/14/22 13:40 [From Macrobid] rofecoxib [From Vioxx] Allergy Unknown Hypertensio Verified 12/14/22 13:40 n sertraline [From Zoloft] Allergy Unknown Rash/Hives Verified 12/14/22 13:40 shellfish derived [Shellfish] AdvReac Severe Nausea & Verified 12/14/22 13:40 Vomiting, Very Ill. celecoxib [From Celebrex] AdvReac Unknown Loss of Verified 12/14/22 13:40 Balance iodine AdvReac Nausea & Verified 12/14/22 13:40 Vomiting Physical Exam Vitals: Intake and Output 12/13/22 12/14/22 12/14/22 22:59 06:59 14:59 Other: Weight 72.575 kg -GENERAL: The patient is alert and oriented x0-1, patient confused and lethargic, follows simple commands, not in any acute distress. Well developed, well nourished. HEENT: Pupils are round and equally reacting to light. EOMI. No scleral icterus. No conjunctival pallor. Normocephalic, atraumatic. No pharyngeal erythema. No thyromegaly. CARDIOVASCULAR: S1 and S2 present. No murmurs, rubs, or gallops. PULMONARY: Chest is clear to auscultation, no wheezing , no crackles. ABDOMEN: Soft, nontender, nondistended, normoactive bowel sounds. No palpable organomegaly. MUSCULOSKELETAL: No joint swelling or deformity. EXTREMITIES: No cyanosis, clubbing, or pedal edema. NEUROLOGICAL: Gross neurological examination did not reveal any focal deficits. SKIN: No rashes. no petechiae. Results CBC & Chem 7: 12/14/22 12:15 12/14/22 12:15 Labs: Abnormal Lab Results - Last 24 Hours (Table) 12/14/22 12/14/22 Range/Units 12:15 12:15 Carbon Dioxide 31 H (22-30) mmol/L BUN 21 H (7-17) mg/dL Creatinine 1.07 H (0.52-1.04) mg/dL Glucose 102 H (74-99) mg/dL Urine Appearance Cloudy H (Clear) Urine Nitrite Positive H (Negative) Ur Leukocyte Esterase Large H (Negative) Urine WBC >182 H (0-5) /hpf Urine Bacteria Few H (None) /hpf Assessment and Plan Assessment: Acute urinary tract infection, failed outpatient therapy Metabolic encephalopathy secondary to above Primary embolism on anticoagulation Hypertension Dementia Chronic kidney disease stage III Plan: Continue with ceftriaxone Follow urine culture Check a bladder scan Continue with eiquis Labs and medication were reviewed.. Continue same treatment. Continue with symptomatic treatment. Resume home medication. Monitor labs and vitals. DVT and GI prophylaxis. Further recommendations as per clinical course of the patient DVT prophylaxis: eiquis GI Prophylaxis: Pepcid PT/OT: Pending Prognosis is guarded
[2022-12-15] MEDS: SODIUM CHLORIDE 0.9% 1,000 ML IV SCH ×2 (08:19→15:31)
[2022-12-15] MEDS: APIXABAN 2.5 MG TABLET PO SCH ×2 (09:01→20:59)
[2022-12-15] MEDS: amLODIPine 5 MG TAB PO SCH (09:02)
[2022-12-15] MEDS: FUROSEMIDE 40 MG TAB PO SCH ×2 (09:02→16:13)
--- NOTE | 2022-12-15 10:59 | P.PN ---
Subjective This is a pleasant 87 years old female from [facility] with multiple medical problems as below presents because of confusion and altered mental status as per daughter who is at bedside She states that she has history of dementia however over the last few days she is becoming more lethargic and confused Also staff at her facility notices that she has more stool incontinence and they were suspecting she has UTI. At baseline she walks with a walker Patient currently lying in bed, denies any chest pain dyspnea, no abdominal pain vomiting diarrhea, no urinary symptoms. No headache or weakness or numbness. She looks very lethargic, she is disoriented to time place and person. No history of trauma or fall: No evidence of loose she is hemodynamically stable and she is febrile She has unremarkable CBC, BMP is also with no significant abnormality, creatinine 1.0 at baseline, GFR is 47 indicating chronic kidney disease Urine analysis is positive for leukocyte esterase: Large and urine WBCs more than 182 12/15/2022 Patient mentation improving, she looks more awake today, she follows commands. She is calm, she got agitated at times when somebody interacts with her. She denies any specific symptoms, no chest pain. Repeat urine culture is still pending to determine gram-negative bacilli She remains on ceftriaxone Objective - Vital Signs Vital signs: Vital Signs Temp 97.5 F L 12/15/22 08:11 Pulse 74 12/15/22 08:11 Resp 18 12/15/22 08:11 BP 164/75 12/15/22 08:11 Pulse Ox 99 12/15/22 08:11 FiO2 Intake & Output 12/14/22 12/15/22 12/15/22 18:59 06:59 18:59 Weight 72.575 kg 72.575 kg Other: Voiding Method Bedside Commode Bedside Commode # Voids 1 - Exam -GENERAL: The patient is alert and mildly confused x3, not in any acute distress. Well developed, well nourished. HEENT: Pupils are round and equally reacting to light. EOMI. No scleral icterus. No conjunctival pallor. Normocephalic, atraumatic. No pharyngeal erythema. No thyromegaly. CARDIOVASCULAR: S1 and S2 present. No murmurs, rubs, or gallops. PULMONARY: Chest is clear to auscultation, no wheezing , no crackles. ABDOMEN: Soft, nontender, nondistended, normoactive bowel sounds. No palpable organomegaly. MUSCULOSKELETAL: No joint swelling or deformity. EXTREMITIES: No cyanosis, clubbing, or pedal edema. NEUROLOGICAL: Gross neurological examination did not reveal any focal deficits. SKIN: No rashes. no petechiae. - Labs CBC & Chem 7: 12/14/22 12:15 12/14/22 12:15 Labs: Abnormal Lab Results - Last 24 Hours (Table) 12/14/22 12/14/22 Range/Units 12:15 12:15 Carbon Dioxide 31 H (22-30) mmol/L BUN 21 H (7-17) mg/dL Creatinine 1.07 H (0.52-1.04) mg/dL Glucose 102 H (74-99) mg/dL Urine Appearance Cloudy H (Clear) Urine Nitrite Positive H (Negative) Ur Leukocyte Esterase Large H (Negative) Urine WBC >182 H (0-5) /hpf Urine Bacteria Few H (None) /hpf Microbiology - Last 24 Hours (Table) 12/14/22 12:15 Urine Culture - Preliminary Urine,Voided Gram Neg Bacilli Assessment and Plan Assessment: Acute urinary tract infection, failed outpatient therapy Metabolic encephalopathy secondary to above Primary embolism on anticoagulation Hypertension Dementia Chronic kidney disease stage III Plan: Continue with ceftriaxone Follow urine culture Continue with eliquis Labs and medication were reviewed.. Continue same treatment. Continue with symptomatic treatment. Resume home medication. Monitor labs and vitals. DVT and GI prophylaxis. Further recommendations as per clinical course of the patient DVT prophylaxis: eiquis GI Prophylaxis: Pepcid PT/OT: Pending Prognosis is guarded
[2022-12-15 11:17] LABS: Basophils # (A) 0.06 X 10*3/uL (0.00-0.10); Eosinophils # (A) 0.17 X 10*3/uL (0.04-0.35); Eosinophils % (A) 2.9 %; HCT 37.2 % (37.2-46.3); Lymphocytes # (A) 0.98 X 10*3/uL (0.90-5.00); Lymphocytes % (A) 16.9 %; MCH 31.3 pg (27.0-32.0); MCHC 32.3 d/dL (32.0-37.0); MCV 97.1 FL (80.0-97.0); Mean Platelet Volume 11.7 FL (9.5-12.2); Monocytes # (A) 0.77 X 10*3/uL (0.20-1.00); Monocytes % (A) 13.3 %; NRBC Per 100 WBC 0 X 10*3/uL (0.00-0.01); Neutrophils # (A) 3.79 X 10*3/uL (1.80-7.70); Neutrophils % (A) 65.6 %; Platelet Count 243 X 10*3/uL (140-440); RBC 3.83 X 10*6/uL (4.10-5.20); RDW 13.3 % (11.5-14.5); WBC 5.79 X 10*3/uL (4.50-10.00)
[2022-12-15 11:18] LABS: BUN/Creat Ratio 15.55 Ratio (12.00-20.00); Blood Urea Nitrogen 17.1 mg/dL (9.0-27.0); Calcium 9.1 mg/dL (8.7-10.3); Chloride 100 mmol/L (96-109); Glucose 102 mg/dL (70-110); Potassium 4.1 mmol/L (3.5-5.5); Sodium 137 mmol/L (135-145)
[2022-12-15] MEDS: DONEPEZIL 10 MG TAB PO SCH (20:59)
[2022-12-16] MEDS: SODIUM CHLORIDE 0.9% 1,000 ML IV SCH (03:58)
[2022-12-16] MEDS: FUROSEMIDE 40 MG TAB PO SCH ×2 (08:49→16:57)
[2022-12-16] MEDS: APIXABAN 2.5 MG TABLET PO SCH ×2 (08:49→16:56)
[2022-12-16] MEDS: amLODIPine 5 MG TAB PO SCH (08:49)
--- NOTE | 2022-12-16 14:02 | P.PN ---
Subjective This is a pleasant 87 years old female from [facility] with multiple medical problems as below presents because of confusion and altered mental status as per daughter who is at bedside She states that she has history of dementia however over the last few days she is becoming more lethargic and confused Also staff at her facility notices that she has more stool incontinence and they were suspecting she has UTI. At baseline she walks with a walker Patient currently lying in bed, denies any chest pain dyspnea, no abdominal pain vomiting diarrhea, no urinary symptoms. No headache or weakness or numbness. She looks very lethargic, she is disoriented to time place and person. No history of trauma or fall: No evidence of loose she is hemodynamically stable and she is febrile She has unremarkable CBC, BMP is also with no significant abnormality, creatinine 1.0 at baseline, GFR is 47 indicating chronic kidney disease Urine analysis is positive for leukocyte esterase: Large and urine WBCs more than 182 12/15/2022 Patient mentation improving, she looks more awake today, she follows commands. She is calm, she got agitated at times when somebody interacts with her. She denies any specific symptoms, no chest pain. Repeat urine culture is still pending to determine gram-negative bacilli She remains on ceftriaxone 12/16/2022 Patient got agitation at times and pulled her IV several times but staff administered of her dose of IV ceftriaxone today. This is part of her advanced dementia with delirium on the top of it. Currently she is sleeping comfortably in bed. Hemodynamically stable. Urine culture is growing E. coli which is sensitive to many organisms. Therefore we will try to keep the IV line out and give her Omnicef. Patient is medically stable for discharge pending placement Objective - Vital Signs Vital signs: Vital Signs Temp 97.9 F 12/16/22 08:00 Pulse 103 H 12/16/22 08:00 Resp 15 12/16/22 08:00 BP 156/95 12/16/22 08:00 Pulse Ox 98 12/16/22 08:00 FiO2 Intake & Output 12/15/22 12/16/22 12/16/22 18:59 06:59 18:59 Output Total 0 Balance 0 Weight 72.575 kg Output: Urine 0 Other: Voiding Method Bedside Commode # Voids 3 0 1 - Exam -GENERAL: The patient is alert and mildly confused x3, not in any acute distress. Well developed, well nourished. HEENT: Pupils are round and equally reacting to light. EOMI. No scleral icterus. No conjunctival pallor. Normocephalic, atraumatic. No pharyngeal erythema. No thyromegaly. CARDIOVASCULAR: S1 and S2 present. No murmurs, rubs, or gallops. PULMONARY: Chest is clear to auscultation, no wheezing , no crackles. ABDOMEN: Soft, nontender, nondistended, normoactive bowel sounds. No palpable organomegaly. MUSCULOSKELETAL: No joint swelling or deformity. EXTREMITIES: No cyanosis, clubbing, or pedal edema. NEUROLOGICAL: Gross neurological examination did not reveal any focal deficits. SKIN: No rashes. no petechiae. - Labs CBC & Chem 7: 12/15/22 06:25 12/15/22 06:25 Labs: Microbiology - Last 24 Hours (Table) 12/14/22 12:15 Urine Culture - Final Urine,Voided Escherichia coli Assessment and Plan Assessment: Acute urinary tract infection, failed outpatient therapy Metabolic encephalopathy secondary to above Primary embolism on anticoagulation Hypertension Dementia Chronic kidney disease stage III Plan: Continue with Omnicef Cartridge eating Continue with eliquis Labs and medication were reviewed.. Continue same treatment. Continue with symptomatic treatment. Resume home medication. Monitor labs and vitals. DVT and GI prophylaxis. Further recommendations as per clinical course of the patient DVT prophylaxis: eiquis GI Prophylaxis: Pepcid PT/OT: Subacute rehab Prognosis is guarded due to placement
[2022-12-16] MEDS: DONEPEZIL 10 MG TAB PO SCH (16:57)
[2022-12-16] MEDS: CEFDINIR 300 MG CAP PO SCH ×2 (16:57→21:36)
[2022-12-17] MEDS: APIXABAN 2.5 MG TABLET PO SCH ×2 (08:35→16:20)
[2022-12-17] MEDS: amLODIPine 5 MG TAB PO SCH (08:35)
[2022-12-17] MEDS: FUROSEMIDE 40 MG TAB PO SCH ×2 (08:35→16:20)
[2022-12-17] MEDS: CEFDINIR 300 MG CAP PO SCH ×2 (08:35→20:06)
--- NOTE | 2022-12-17 12:45 | P.PN ---
Subjective This is a pleasant 87 years old female from [facility] with multiple medical problems as below presents because of confusion and altered mental status as per daughter who is at bedside She states that she has history of dementia however over the last few days she is becoming more lethargic and confused Also staff at her facility notices that she has more stool incontinence and they were suspecting she has UTI. At baseline she walks with a walker Patient currently lying in bed, denies any chest pain dyspnea, no abdominal pain vomiting diarrhea, no urinary symptoms. No headache or weakness or numbness. She looks very lethargic, she is disoriented to time place and person. No history of trauma or fall: No evidence of loose she is hemodynamically stable and she is febrile She has unremarkable CBC, BMP is also with no significant abnormality, creatinine 1.0 at baseline, GFR is 47 indicating chronic kidney disease Urine analysis is positive for leukocyte esterase: Large and urine WBCs more than 182 12/15/2022 Patient mentation improving, she looks more awake today, she follows commands. She is calm, she got agitated at times when somebody interacts with her. She denies any specific symptoms, no chest pain. Repeat urine culture is still pending to determine gram-negative bacilli She remains on ceftriaxone 12/16/2022 Patient got agitation at times and pulled her IV several times but staff administered of her dose of IV ceftriaxone today. This is part of her advanced dementia with delirium on the top of it. Currently she is sleeping comfortably in bed. Hemodynamically stable. Urine culture is growing E. coli which is sensitive to many organisms. Therefore we will try to keep the IV line out and give her Omnicef. Patient is medically stable for discharge pending placement 12/17/2029 Patient clinically doing well, back to baseline, eats her diet and tolerated 100%. No new symptoms Urine culture showing E. coli sensitive and switched to Omnicef We will repeat urine analysis negative may discontinue antibiotics Patient is medically stable for discharge pending placement, possible discharge back to [facility] tomorrow Sunday Objective - Vital Signs Vital signs: Vital Signs Temp 97.6 F 12/17/22 07:48 Pulse 79 12/17/22 07:48 Resp 18 12/17/22 07:48 BP 120/63 12/17/22 07:48 Pulse Ox 92 L 12/17/22 07:48 FiO2 Intake & Output 12/16/22 12/17/22 12/17/22 18:59 06:59 18:59 Other: # Voids 1 1 - Exam -GENERAL: The patient is alert and mildly confused x3, not in any acute distress. Well developed, well nourished. HEENT: Pupils are round and equally reacting to light. EOMI. No scleral icterus. No conjunctival pallor. Normocephalic, atraumatic. No pharyngeal erythema. No thyromegaly. CARDIOVASCULAR: S1 and S2 present. No murmurs, rubs, or gallops. PULMONARY: Chest is clear to auscultation, no wheezing , no crackles. ABDOMEN: Soft, nontender, nondistended, normoactive bowel sounds. No palpable organomegaly. MUSCULOSKELETAL: No joint swelling or deformity. EXTREMITIES: No cyanosis, clubbing, or pedal edema. NEUROLOGICAL: Gross neurological examination did not reveal any focal deficits. SKIN: No rashes. no petechiae. - Labs CBC & Chem 7: 12/15/22 06:25 12/15/22 06:25 Labs: Microbiology - Last 24 Hours (Table) 12/14/22 12:15 Urine Culture - Final Urine,Voided Escherichia coli Assessment and Plan Assessment: Acute urinary tract infection, failed outpatient therapy Metabolic encephalopathy secondary to above Primary embolism on anticoagulation Hypertension Dementia Chronic kidney disease stage III Plan: Continue with Omnicef Cartridge eating Continue with eliquis Labs and medication were reviewed.. Continue same treatment. Continue with symptomatic treatment. Resume home medication. Monitor labs and vitals. DVT and GI prophylaxis. Further recommendations as per clinical course of the patient DVT prophylaxis: eiquis GI Prophylaxis: Pepcid PT/OT: Subacute rehab Prognosis is guarded due to placement
[2022-12-17] MEDS: DONEPEZIL 10 MG TAB PO SCH (16:20)
[2022-12-18 04:25] LABS: Appearance,Urine Cloudy (Clear); Bilirubin,Urine Negative (Negative); Blood,Urine Negative (Negative); Color,Urine Light Yellow; Glucose,Urine (UA) Negative (Negative); Hyaline Casts,Urine 6 /lpf (0-2); Ketones,Urine Negative (Negative); Leukocyte Esterase,Urine Large (Negative); Mucus,Urine Rare /hpf; Nitrite,Urine Negative (Negative); PH, Urine 6.5 (5.0-8.0); Protein,Urine Negative (Negative); RBC,Urine 8 /hpf (0-5); Specific Gravity,Urine 1.011 (1.001-1.035); Squamous Epithelial Cell,Urine 3 /hpf (0-4); Urobilinogen,Urine <2.0 mg/dL (<2.0); WBC,Urine >182 /hpf (0-5)
[2022-12-18] MEDS: FUROSEMIDE 40 MG TAB PO SCH ×2 (08:10→17:03)
[2022-12-18] MEDS: APIXABAN 2.5 MG TABLET PO SCH ×2 (08:10→17:03)
[2022-12-18] MEDS: CEFDINIR 300 MG CAP PO SCH ×2 (08:10→20:27)
[2022-12-18] MEDS: amLODIPine 5 MG TAB PO SCH (08:10)
[2022-12-18] MEDS: DONEPEZIL 10 MG TAB PO SCH (17:03)
--- NOTE | 2022-12-18 22:20 | P.PN ---
Subjective This is a pleasant 87 years old female from [facility] with multiple medical problems as below presents because of confusion and altered mental status as per daughter who is at bedside She states that she has history of dementia however over the last few days she is becoming more lethargic and confused Also staff at her facility notices that she has more stool incontinence and they were suspecting she has UTI. At baseline she walks with a walker Patient currently lying in bed, denies any chest pain dyspnea, no abdominal pain vomiting diarrhea, no urinary symptoms. No headache or weakness or numbness. She looks very lethargic, she is disoriented to time place and person. No history of trauma or fall: No evidence of loose she is hemodynamically stable and she is febrile She has unremarkable CBC, BMP is also with no significant abnormality, creatinine 1.0 at baseline, GFR is 47 indicating chronic kidney disease Urine analysis is positive for leukocyte esterase: Large and urine WBCs more than 182 12/15/2022 Patient mentation improving, she looks more awake today, she follows commands. She is calm, she got agitated at times when somebody interacts with her. She denies any specific symptoms, no chest pain. Repeat urine culture is still pending to determine gram-negative bacilli She remains on ceftriaxone 12/16/2022 Patient got agitation at times and pulled her IV several times but staff administered of her dose of IV ceftriaxone today. This is part of her advanced dementia with delirium on the top of it. Currently she is sleeping comfortably in bed. Hemodynamically stable. Urine culture is growing E. coli which is sensitive to many organisms. Therefore we will try to keep the IV line out and give her Omnicef. Patient is medically stable for discharge pending placement 12/17/2029 Patient clinically doing well, back to baseline, eats her diet and tolerated 100%. No new symptoms Urine culture showing E. coli sensitive and switched to Omnicef We will repeat urine analysis negative may discontinue antibiotics Patient is medically stable for discharge pending placement, possible discharge back to shelter tomorrow Sunday12/18/2022 Patient clinically stable, pleasant no new complaints. Patient with advanced dementia as well Hemodynamically stable. Patient urine culture is growing E. coli. Patient covered with Omnicef which is sensitive. Repeat urine analysis showed persistent infection Patient is medically stable for discharge pending placement, discussed with oncology social worker Giles today. Possible discharge once bed becomes available. Objective - Vital Signs Vital signs: Vital Signs Temp 97.9 F 12/18/22 08:00 Pulse 74 12/18/22 08:00 Resp 18 12/18/22 08:00 BP 139/84 12/18/22 08:00 Pulse Ox 97 12/18/22 08:00 FiO2 Intake & Output 12/17/22 12/18/22 12/18/22 18:59 06:59 18:59 Output Total 300 Balance -300 Output: Urine 300 Other: Voiding Method Bedside Commode Bedside Commode # Voids 1 - Exam -GENERAL: The patient is alert and mildly confused x3, not in any acute distress. Well developed, well nourished. HEENT: Pupils are round and equally reacting to light. EOMI. No scleral icterus. No conjunctival pallor. Normocephalic, atraumatic. No pharyngeal erythema. No thyromegaly. CARDIOVASCULAR: S1 and S2 present. No murmurs, rubs, or gallops. PULMONARY: Chest is clear to auscultation, no wheezing , no crackles. ABDOMEN: Soft, nontender, nondistended, normoactive bowel sounds. No palpable organomegaly. MUSCULOSKELETAL: No joint swelling or deformity. EXTREMITIES: No cyanosis, clubbing, or pedal edema. NEUROLOGICAL: Gross neurological examination did not reveal any focal deficits. SKIN: No rashes. no petechiae. - Labs CBC & Chem 7: 12/15/22 06:25 12/15/22 06:25 Labs: Abnormal Lab Results - Last 24 Hours (Table) 12/18/22 Range/Units 03:50 Urine Appearance Cloudy H (Clear) Ur Leukocyte Esterase Large H (Negative) Urine RBC 8 H (0-5) /hpf Urine WBC >182 H (0-5) /hpf Hyaline Casts 6 H (0-2) /lpf Urine Mucus Rare H (None) /hpf Assessment and Plan Assessment: Acute urinary tract infection, failed outpatient therapy Metabolic encephalopathy secondary to above Primary embolism on anticoagulation Hypertension Dementia Chronic kidney disease stage III Plan: Continue with Omnicef Cartridge eating Continue with eliquis Labs and medication were reviewed.. Continue same treatment. Continue with symptomatic treatment. Resume home medication. Monitor labs and vitals. DVT and GI prophylaxis. Further recommendations as per clinical course of the patient DVT prophylaxis: eiquis GI Prophylaxis: Pepcid PT/OT: Subacute rehab Prognosis is guarded due to placement
[2022-12-19] MEDS: amLODIPine 5 MG TAB PO SCH (08:35)
[2022-12-19] MEDS: APIXABAN 2.5 MG TABLET PO SCH ×2 (08:35→18:35)
[2022-12-19] MEDS: CEFDINIR 300 MG CAP PO SCH ×2 (08:35→20:25)
[2022-12-19] MEDS: FUROSEMIDE 40 MG TAB PO SCH ×2 (08:35→17:10)
[2022-12-19] MEDS ORDERED: MAG HYDROX/AL HYDROX/SIMETH 30 ML CUP PO PRN (17:07)
[2022-12-19] MEDS: DONEPEZIL 10 MG TAB PO SCH (18:35)
--- NOTE | 2022-12-20 08:32 | P.PN ---
Subjective This is a pleasant 87 years old female from [facility] with multiple medical problems as below presents because of confusion and altered mental status as per daughter who is at bedside She states that she has history of dementia however over the last few days she is becoming more lethargic and confused Also staff at her facility notices that she has more stool incontinence and they were suspecting she has UTI. At baseline she walks with a walker Patient currently lying in bed, denies any chest pain dyspnea, no abdominal pain vomiting diarrhea, no urinary symptoms. No headache or weakness or numbness. She looks very lethargic, she is disoriented to time place and person. No history of trauma or fall: No evidence of loose she is hemodynamically stable and she is febrile She has unremarkable CBC, BMP is also with no significant abnormality, creatinine 1.0 at baseline, GFR is 47 indicating chronic kidney disease Urine analysis is positive for leukocyte esterase: Large and urine WBCs more than 182 12/15/2022 Patient mentation improving, she looks more awake today, she follows commands. She is calm, she got agitated at times when somebody interacts with her. She denies any specific symptoms, no chest pain. Repeat urine culture is still pending to determine gram-negative bacilli She remains on ceftriaxone 12/16/2022 Patient got agitation at times and pulled her IV several times but staff administered of her dose of IV ceftriaxone today. This is part of her advanced dementia with delirium on the top of it. Currently she is sleeping comfortably in bed. Hemodynamically stable. Urine culture is growing E. coli which is sensitive to many organisms. Therefore we will try to keep the IV line out and give her Omnicef. Patient is medically stable for discharge pending placement 12/17/2029 Patient clinically doing well, back to baseline, eats her diet and tolerated 100%. No new symptoms Urine culture showing E. coli sensitive and switched to Omnicef We will repeat urine analysis negative may discontinue antibiotics Patient is medically stable for discharge pending placement, possible discharge back to [facility] tomorrow Sunday12/18/2022 Patient clinically stable, pleasant no new complaints. Patient with advanced dementia as well Hemodynamically stable. Patient urine culture is growing E. coli. Patient covered with Omnicef which is sensitive. Repeat urine analysis showed persistent infection Patient is medically stable for discharge pending placement, discussed with social work instructor Giles today. Possible discharge once bed becomes available. 12/19/2022 Patient is clinically stable, pleasant, No events Remains on Omnicef for E. coli UTI Pending placement Objective - Vital Signs Vital signs: Vital Signs Temp 97.8 F 12/19/22 07:05 Pulse 76 12/19/22 07:05 Resp 18 12/19/22 07:05 BP 124/80 12/19/22 07:05 Pulse Ox 97 12/19/22 07:05 FiO2 Intake & Output 12/18/22 12/19/22 12/19/22 18:59 06:59 18:59 Intake Total 200 Balance 200 Intake: Oral 200 Other: Voiding Method Bedside Commode Incontinent Diaper Incontinent # Voids 2 1 # Bowel Movements 1 - Exam -GENERAL: The patient is alert and mildly confused x3, not in any acute distress. Well developed, well nourished. HEENT: Pupils are round and equally reacting to light. EOMI. No scleral icterus. No conjunctival pallor. Normocephalic, atraumatic. No pharyngeal erythema. No thyromegaly. CARDIOVASCULAR: S1 and S2 present. No murmurs, rubs, or gallops. PULMONARY: Chest is clear to auscultation, no wheezing , no crackles. ABDOMEN: Soft, nontender, nondistended, normoactive bowel sounds. No palpable organomegaly. MUSCULOSKELETAL: No joint swelling or deformity. EXTREMITIES: No cyanosis, clubbing, or pedal edema. NEUROLOGICAL: Gross neurological examination did not reveal any focal deficits. SKIN: No rashes. no petechiae. - Labs CBC & Chem 7: 12/15/22 06:25 12/15/22 06:25 Assessment and Plan Assessment: Acute urinary tract infection, failed outpatient therapy Metabolic encephalopathy secondary to above Primary embolism on anticoagulation Hypertension Dementia Chronic kidney disease stage III Plan: Continue with Omnicef Cartridge eating Continue with eliquis Labs and medication were reviewed.. Continue same treatment. Continue with symptomatic treatment. Resume home medication. Monitor labs and vitals. DVT and GI prophylaxis. Further recommendations as per clinical course of the patient DVT prophylaxis: eiquis GI Prophylaxis: Pepcid PT/OT: Subacute rehab Prognosis is guarded due to placement
[2022-12-20] MEDS: CEFDINIR 300 MG CAP PO SCH (08:52)
[2022-12-20] MEDS: APIXABAN 2.5 MG TABLET PO SCH (08:52)
[2022-12-20 08:57] VITALS: BP 109/75; PULSE 79; RESP 16; TEMP 98.3
[2022-12-20] MEDS: amLODIPine 5 MG TAB PO SCH (08:59)
[2022-12-20] MEDS: FUROSEMIDE 40 MG TAB PO SCH (09:59)
--- NOTE | 2022-12-20 12:40 | P.DS ---
Providers Date of admission: 12/17/22 12:25 Expected date of discharge: 12/20/22 Attending physician: Sudheer Kemp MD Primary care physician: Yrn Torrez Hospital Course: Discharge diagnoses; Acute urinary tract infection, failed outpatient therapy Metabolic encephalopathy secondary to above Pulmonary embolism on anticoagulation Hypertension Dementia Chronic kidney disease stage III Hospital course; This is a pleasant 87 years old female from [facility] with multiple medical problems as below presents because of confusion and altered mental status as per daughter who is at bedside She states that she has history of dementia however over the last few days she is becoming more lethargic and confused Also staff at her facility notices that she has more stool incontinence and they were suspecting she has UTI. At baseline she walks with a walker Patient currently lying in bed, denies any chest pain dyspnea, no abdominal pain vomiting diarrhea, no urinary symptoms. No headache or weakness or numbness. She looks very lethargic, she is disoriented to time place and person. No history of trauma or fall: No evidence of loose she is hemodynamically stable and she is febrile She has unremarkable CBC, BMP is also with no significant abnormality, creatinine 1.0 at baseline, GFR is 47 indicating chronic kidney disease Urine analysis is positive for leukocyte esterase: Large and urine WBCs more than 182 12/15/2022 Patient mentation improving, she looks more awake today, she follows commands. She is calm, she got agitated at times when somebody interacts with her. She denies any specific symptoms, no chest pain. Repeat urine culture is still pending to determine gram-negative bacilli She remains on ceftriaxone 12/16/2022 Patient got agitation at times and pulled her IV several times but staff administered of her dose of IV ceftriaxone today. This is part of her advanced dementia with delirium on the top of it. Currently she is sleeping comfortably in bed. Hemodynamically stable. Urine culture is growing E. coli which is sensitive to many organisms. Therefore we will try to keep the IV line out and give her Omnicef. Patient is medically stable for discharge pending placement 12/17/2029 Patient clinically doing well, back to baseline, eats her diet and tolerated 100%. No new symptoms Urine culture showing E. coli sensitive and switched to Omnicef We will repeat urine analysis negative may discontinue antibiotics Patient is medically stable for discharge pending placement, possible discharge back to senior care tomorrow Sunday12/18/2022 Patient clinically stable, pleasant no new complaints. Patient with advanced dementia as well Hemodynamically stable. Patient urine culture is growing E. coli. Patient covered with Omnicef which is sensitive. Repeat urine analysis showed persistent infection Patient is medically stable for discharge pending placement, discussed with administrator social welfare Giles gordillo. Possible discharge once bed becomes available. 12/19/2022 Patient is clinically stable, pleasant, No events Remains on Omnicef for E. coli UTI Pending placement 12/20. Patient being discharged in stable condition to senior care. Being discharged on Omnicef for 3 more days. PHYSICAL EXAMINATION: GENERAL: The patient is alert, baseline dementia, not in any acute distress. Well developed, well nourished. HEENT: Pupils are round and equally reacting to light. EOMI. No scleral icterus. No conjunctival pallor. Normocephalic, atraumatic. No pharyngeal erythema. No thyromegaly. CARDIOVASCULAR: S1 and S2 present. No murmurs, rubs, or gallops. PULMONARY: Chest is clear to auscultation, no wheezing or crackles. ABDOMEN: Soft, nontender, nondistended, normoactive bowel sounds. No palpable organomegaly. MUSCULOSKELETAL: No joint swelling or deformity. EXTREMITIES: No cyanosis, clubbing, or pedal edema. NEUROLOGICAL: Gross neurological examination did not reveal any focal deficits. SKIN: No rashes. Patient Condition at Discharge: Stable Plan - Discharge Summary New Discharge Prescriptions: New Cefdinir [Omnicef] 300 mg PO BID #6 cap Continue Donepezil [Aricept] 10 mg PO HS@1900 Cetirizine HCl 10 mg PO HS@1900 lidocaine HCL [Aspercreme Lidocaine] 1 applic TOPICAL TID PRN PRN Reason: burning sensation Menthol [Biofreeze] 1 applic TOPICAL QID PRN PRN Reason: Pain Apixaban [Eliquis] 2.5 mg PO BID@0800,1900 Omeprazole 20 mg PO DAILY@0800 Acetaminophen Tab [Tylenol] 1,000 mg PO BID PRN PRN Reason: Pain Loperamide HCl [Loperamide] 2 - 4 mg PO QID PRN PRN Reason: Diarrhea OXcarbazepine [Trileptal] 150 mg PO BID@0800,1900 Furosemide [Lasix] 40 mg PO BID@0800,1600 Citalopram Hydrobromide [CeleXA] 20 mg PO DAILY@0800 buPROPion [Wellbutrin] 75 mg PO DAILY@0800 amLODIPine [Norvasc] 5 mg PO DAILY@0800 Hydrocortisone Cream [Hydrocortisone 2.5% Cream] 1 applic TOPICAL BID PRN PRN Reason: Rash Discharge Medication List Apixaban [Eliquis] 2.5 mg PO BID@0800,1900 11/04/20 [History] Omeprazole 20 mg PO DAILY@0800 12/03/20 [History] Acetaminophen Tab [Tylenol] 1,000 mg PO BID PRN 08/28/22 [History] Cetirizine HCl 10 mg PO HS@1900 08/28/22 [History] Citalopram Hydrobromide [CeleXA] 20 mg PO DAILY@0800 08/28/22 [History] Donepezil [Aricept] 10 mg PO HS@19008/28/22 [History] Furosemide [Lasix] 40 mg PO BID@0800,1600 08/28/22 [History] Loperamide HCl [Loperamide] 2 - 4 mg PO QID PRN 08/28/22 [History] OXcarbazepine [Trileptal] 150 mg PO BID@0800,1900 08/28/22 [History] amLODIPine [Norvasc] 5 mg PO DAILY@0800 08/28/22 [History] buPROPion [Wellbutrin] 75 mg PO DAILY@0800 08/28/22 [History] Hydrocortisone Cream [Hydrocortisone 2.5% Cream] 1 applic TOPICAL BID PRN 0 12/14/22 [History] Menthol [Biofreeze] 1 applic TOPICAL QID PRN 12/14/22 [History] lidocaine HCL [Aspercreme Lidocaine] 1 applic TOPICAL TID PRN 12/14/22 [History] Cefdinir [Omnicef] 300 mg PO BID #6 cap 12/20/22 [Rx] Follow up Appointment(s)/Referral(s): Yrn Torrez DO [Primary Care Provider] - 1-2 days Discharge Disposition: TRANSFER TO [facility]
== END 2022-12-20 14:32 | DRG 689 ==
LOC: EC 12:05 → 6NMEDSUR 14:13 → 4SSUR 22:15 → OBSVTOIN 12-17 12:25
PROVIDERS: ADMIT Internal Medicine; ATTEND Internal Medicine
DX: N39.0 Urinary tract infection, site not specified (principal); G93.41 Metabolic encephalopathy; I26.99 Other pulmonary embolism without acute cor pulmonale; F05 Delirium due to known physiological condition; N18.30 Chronic kidney disease, stage 3 unspecified; I48.91 Unspecified atrial fibrillation; I12.9 Hypertensive chronic kidney disease with stage 1 through stage 4 chronic kidney disease, or unspecified chronic kidney disease; F03.90 Unspecified dementia, unspecified severity, without behavioral disturbance, psychotic disturbance, mood disturbance, and anxiety; B96.20 Unspecified Escherichia coli [E. coli] as the cause of diseases classified elsewhere; E86.0 Dehydration; Z66 Do not resuscitate; Z96.642 Presence of left artificial hip joint; Z79.01 Long term (current) use of anticoagulants; Z79.899 Other long term (current) drug therapy; Z82.49 Family history of ischemic heart disease and other diseases of the circulatory system; Z85.42 Personal history of malignant neoplasm of other parts of uterus; Z87.440 Personal history of urinary (tract) infections; Z90.710 Acquired absence of both cervix and uterus; Z88.8 Allergy status to other drugs, medicaments and biological substances; Z91.013 Allergy to seafood
CPT/HCPCS: 36415; 51798; 80048; 80053; 81001; 85025; 87077; 87086; 87186; 96361; 96374; 99285